=== PATIENT | male | born 1940 | race Caucasian/White ===

== ENCOUNTER 2019-11-12 12:29 | Inpatient (IN) | payer MEDICARE, OTHER ==
[~2019-11-12] VITALS: Ht 180.3 cm; Wt 118.8 kg
[2019-11-12 13:14] LABS: BASO # 0.2 x10^3/uL (0.0-0.2); BASO % 1 % (0-3); EOS % 0 % (0-3); HEMATOCRIT 40.4 % (39.0-53.0); HEMOGLOBIN 13.6 g/dL (13.0-17.5); LYMPH # 0.8 x10^3/uL (1.0-4.8); LYMPH % 4 % (24-48); MEAN CORPUSCULAR HEMOGLOBIN 29 pg (25-35); MEAN CORPUSCULAR HGB CONC 34 g/dL (31-37); MEAN CORPUSCULAR VOLUME 87 fL (79-100); MONO # 1.9 x10^3/uL (0.0-1.1); MONO % 9 % (0-9); NEUT % 87 % (31-73); PLATELET COUNT 243 x10^3/uL (140-400); RED BLOOD COUNT 4.62 x10^6/uL (4.30-5.70); RED CELL DISTRIBUTION WIDTH 14.2 % (11.5-14.5); WHITE BLOOD COUNT 21.9 x10^3/uL (4.0-11.0)
[2019-11-12 13:20] LABS: CALCIUM 8.6 mg/dL (8.5-10.1); CREATININE 1.8 mg/dL (0.7-1.3); GFR 36.5
[2019-11-12 13:32] LABS: ALBUMIN/GLOBULIN RATIO 0.8 (1.0-1.7); TOTAL BILIRUBIN 1.9 mg/dL (0.2-1.0); TOTAL PROTEIN 6.7 g/dL (6.4-8.2)
--- NOTE | 2019-11-12 13:43 | RAD ---
Exam performed: One view chest. Indication: Reason: cough / Spl. Instructions: / History: Date of Service: 11/12/2019 1:05 PM Comparison: None available. Single AP upright portable view chest findings: Cardiomediastinal silhouette is within limits of normal. No acute infiltrates, effusion or pneumothorax is detected. The bony structures are normal. Impression: No acute cardiopulmonary process is detected. Electronically signed by: Vivi Plaza MD (11/12/2019 1:40 PM) [facility]PITALTommie
--- NOTE | 2019-11-12 13:51 | EKG ---
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
[2019-11-12 14:02] LABS: % BANDS 1 % (0-9); % LYMPHS 4 % (24-48); % MONOS 10 % (0-10); % SEGS 85 % (35-66); ANISOCYTOSIS SLIGHT; PLT ESTIMATE ADEQUATE (ADEQUATE)
[2019-11-12 14:27] LABS: COLOR,URINE AMBER
[2019-11-12 14:28] LABS: BACTERIA,URINE MANY /HPF (0-FEW); BILIRUBIN,URINE NEG (NEG); CLARITY,URINE TURBID; GLUCOSE,URINE NEG (NEG); NITRITE,URINE POS (NEG); SQUAMOUS EPITHELIAL CELL,UR OCC /LPF; WBC,URINE TNTC /HPF (0-4)
[2019-11-12] MEDS ORDERED: IV NORMAL SALINE 50ML 50 ML ONE (14:56)
[2019-11-12] MEDS ORDERED: cefTRIAXone SODIUM 1 GM VIAL ONE (14:56)
[2019-11-12] MEDS ORDERED: IV NORMAL SALINE 1,000ML 1,000 ML IV ONE (15:00)
--- NOTE | 2019-11-12 15:09 | PHYS DOC ---
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 He went to his primary doctor who thought that he may have had some heat related illness. He was not concerned about COVID. Patient states he is chronically short of breath and there is been nothing worse lately. He has been coughing. His primary issue is that he is profoundly weak and has not had any energy recently. He denies any nausea or vomiting. He does not think he has had any fever at home. [] Review of Systems: Review of Systems: Constitutional: Per HPI Eyes: Denies change in visual acuity HENT: Denies nasal congestion or sore throat Respiratory: Reports chronic shortness of breath and cough Cardiovascular: Denies chest pain or edema GI: Denies abdominal pain, nausea, vomiting, bloody stools or diarrhea : Denies dysuria Musculoskeletal: Denies back pain or joint pain Integument: Denies rash Neurologic: Denies headache, focal weakness or sensory changes Endocrine: Denies polyuria or polydipsia Lymphatic: Denies swollen glands Psychiatric: Denies depression or anxiety Heart Score: HEART Score for Chest Pain: HEART Score for Chest Pain Response (Comments) Value Risk Factors No Risk Factors 0 Total 0 Risk Factors: Risk Factors: DM, Current or recent (<one month) smoker, HTN, HLP, family history of CAD, obesity. Risk Scores: Score 0 - 3: 2.5% MACE over next 6 weeks - Discharge Home Score 4 - 6: 20.3% MACE over next 6 weeks - Admit for Clinical Observation Score 7 - 10: 72.7% MACE over next 6 weeks - Early Invasive Strategies Allergies: Allergies: Allergies Coded Allergies Type Severity Reaction Last Updated Verified No Known Drug Allergies 11/12/19 No Physical Exam: PE: Constitutional: Well developed, well nourished, no distress but does appear acutely ill. [] HENT: Normocephalic, atraumatic, bilateral external ears normal, oropharynx moist, no oral exudates, nose normal. [] Eyes: PERRLA, EOMI, conjunctiva normal, no discharge. [] Neck: Normal range of motion, no tenderness, supple, no stridor. [] Cardiovascular:Heart rate regular rhythm, no murmur [] Lungs & Thorax: Bilateral breath sounds clear to auscultation [] Abdomen: Morbidly obese, bowel sounds normal, soft, no tenderness, no masses, no pulsatile masses. [] Skin: Warm, dry, no erythema, no rash. [] Back: No tenderness, no CVA tenderness. [] Extremities: No tenderness, no cyanosis, no clubbing, ROM intact, no edema. [] Neurologic: Alert and oriented X 3, normal motor function, normal sensory function, no focal deficits noted. [] Psychologic: Affect normal, judgement normal, mood normal. [] Current Patient Data: Labs: Laboratory Tests Test 11/12/19 12:52 11/12/19 14:03 White Blood Count 21.9 x10^3/uL (4.0-11.0) H Red Blood Count 4.62 x10^6/uL (4.30-5.70) Hemoglobin 13.6 g/dL (13.0-17.5) Hematocrit 40.4 % (39.0-53.0) Mean Corpuscular Volume 87 fL (79-100) Mean Corpuscular Hemoglobin 29 pg (25-35) Mean Corpuscular Hemoglobin Concent 34 g/dL (31-37) Red Cell Distribution Width 14.2 % (11.5-14.5) Platelet Count 243 x10^3/uL (140-400) Neutrophils (%) (Auto) 87 % (31-73) H Lymphocytes (%) (Auto) 4 % (24-48) L Monocytes (%) (Auto) 9 % (0-9) Eosinophils (%) (Auto) 0 % (0-3) Basophils (%) (Auto) 1 % (0-3) Neutrophils # (Auto) 19.0 x10^3uL (1.8-7.7) H Lymphocytes # (Auto) 0.8 x10^3/uL (1.0-4.8) L Monocytes # (Auto) 1.9 x10^3/uL (0.0-1.1) H Eosinophils # (Auto) 0.0 x10^3/uL (0.0-0.7) Basophils # (Auto) 0.2 x10^3/uL (0.0-0.2) Segmented Neutrophils % 85 % (35-66) H Band Neutrophils % 1 % (0-9) Lymphocytes % 4 % (24-48) L Monocytes % 10 % (0-10) Platelet Estimate Adequate (ADEQUATE) Anisocytosis Slight Sodium Level 133 mmol/L (136-145) L Potassium Level 3.0 mmol/L (3.5-5.1) L Chloride Level 92 mmol/L (98-107) L Carbon Dioxide Level 32 mmol/L (21-32) Anion Gap 9 (6-14) Blood Urea Nitrogen 30 mg/dL (8-26) H Creatinine 1.8 mg/dL (0.7-1.3) H Estimated GFR (Cockcroft-Gault) 36.5 BUN/Creatinine Ratio 17 (6-20) Glucose Level 115 mg/dL (70-99) H Calcium Level 8.6 mg/dL (8.5-10.1) Total Bilirubin 1.9 mg/dL (0.2-1.0) H Aspartate Amino Transferase (AST) 22 U/L (15-37) Alanine Aminotransferase (ALT) 16 U/L (16-63) Alkaline Phosphatase 83 U/L (46-116) Troponin I Quantitative < 0.017 ng/mL (0-0.055) AV-Kxv-M-Type Natriuretic Peptide 1486 pg/mL (0-449) H Total Protein 6.7 g/dL (6.4-8.2) Albumin 3.0 g/dL (3.4-5.0) L Albumin/Globulin Ratio 0.8 (1.0-1.7) L Urine Collection Type Unknown Urine Color [place] Urine Clarity Turbid Urine pH 5.5 Urine Specific [place] 1.025 Urine Protein 100 mg/dl (NEG-TRACE) Urine Glucose (UA) Neg mg/dL (NEG) Urine Ketones (Stick) Neg mg/dL (NEG) Urine Blood Large (NEG) Urine Nitrite Pos (NEG) Urine Bilirubin Neg (NEG) Urine Urobilinogen Dipstick 1.0 mg/dL (0.2 mg/dL) Urine Leukocyte Esterase Mod (NEG) Urine RBC 6-10 /HPF (0-2) Urine WBC Tntc /HPF (0-4) Urine Squamous Epithelial Cells Occ /LPF Urine Bacteria Many /HPF (0-FEW) Vital Signs: Vital Signs Date Time Temp Pulse Resp B/P (MAP) Pulse Ox O2 Delivery O2 Flow Rate FiO2 11/12/19 14:32 97 16 167/87 (113) 96 Room Air 11/12/19 12:39 98.2 EKG: EKG: [] Radiology/Procedures: Radiology/Procedures: [] Impressions: REASON: cough PROCEDURE: CHEST AP ONLY Exam performed: One view chest. Indication: Reason: cough / Spl. Instructions: / History: Date of Service: 11/12/2019 1:05 PM Comparison: None available. Single AP upright portable view chest findings: Cardiomediastinal silhouette is within limits of normal. No acute infiltrates, effusion or pneumothorax is detected. The bony structures are normal. Impression: No acute cardiopulmonary process is detected. Course & Med Decision Making: Course & Med Decision Making Pertinent Labs and Imaging studies reviewed. (See chart for details) [ED course: Evaluation reveals a weak 79-year-old male who appears to have a complicated urinary tract infection. He was given IV fluids and Rocephin during his stay in the department. We will go ahead and keep him overnight for IV antibiotics and IV hydration. I spoke with Dr. Dempsey who agrees to accept the patient for admission.] [employer] Disclaimer: [employer] Disclaimer: This electronic medical record was generated, in whole or in part, using a voice recognition dictation system. Departure Departure: Impression: Primary Impression: Urinary tract infection Qualified Codes: N10 - Acute pyelonephritis Disposition: HOME/RESIDENCE PRIOR TO ADM Condition: STABLE Referrals: DENNIS JEREZ MD (PCP) Justification of Admission: Justification of Admission: Justification of Admission Dx: Yes Comments: Urinary tract infection CAR LEONARDO DO Nov 12, 2019 15:09
[2019-11-12] MEDS ORDERED: IV NORMAL SALINE 1,000ML 1,000 ML IV SCH (15:13)
[2019-11-12] MEDS ORDERED: ONDANSETRON PF 4 MG/2 ML VIAL. IVP PRN ×2 (15:15→16:30)
[2019-11-12 16:21] VITALS: BP 106/63
[2019-11-12] MEDS ORDERED: ACETAMINOPHEN 325 MG TABLET PO ONE (16:28)
[2019-11-12] MEDS ORDERED: diphenhydrAMINE 50 MG/ML VIAL IVP PRN (16:30)
[2019-11-12] MEDS ORDERED: diphenhydrAMINE HCL 25 MG CAPSULE PO PRN (16:30)
[2019-11-12] MEDS ORDERED: METOCLOPRAMIDE HCL 10 MG/2 ML VIAL. IVP PRN (16:30)
[2019-11-12] MEDS ORDERED: PROCHLORPERAZINE 10 MG/2 ML VIAL. IVP PRN (16:30)
[2019-11-12] MEDS: IV NORMAL SALINE 1,000ML 1,000 ML IV SCH (16:31)
[2019-11-12] MEDS ORDERED: RIVA20TA2 PO (17:50)
[2019-11-12] MEDS ORDERED: CITA40TA5 PO (17:50)
[2019-11-12] MEDS ORDERED: METO5TAB4 PO (17:50)
[2019-11-12] MEDS ORDERED: CLOP75TA57 PO (17:50)
[2019-11-12] MEDS ORDERED: DILT300C23 PO (17:50)
[2019-11-12] MEDS ORDERED: METO50TA29 PO (17:50)
[2019-11-12] MEDS ORDERED: ATOR40TA59 PO (17:50)
[2019-11-12] MEDS ORDERED: ASPI-424 PO (17:50)
[2019-11-12] MEDS ORDERED: FURO40TA4 PO (17:50)
[2019-11-12] MEDS ORDERED: DOXY100C2 PO (17:50)
--- NOTE | 2019-11-12 18:32 | NUR ---
PT is able to partially verbalize understanding of poc. PT is forgetful at times. PT has had increased weakness and SOB over the last few weeks with some urinary incontinence. PT said he felt dehydrated. He had a fall while walking a property and has abrasions on his knees and ecchymosis on Left shoulder. PT reports living home alone since his . He has not had much of a taste for food the last few weeks. PT instructed to use call light when getting up. PT HR increases with exertion and pt wears a bipap at night. Sang KWAN
--- NOTE | 2019-11-12 19:11 | HP ---
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 He went to his primary doctor who thought that he may have had some heat related illness. He was not concerned about the COVID. The patient states he is chronically short of breath and that he has been worsening, has been coughing. His primary issue is that he is profoundly weak and has not had any energy recently. He denies any nausea or vomiting. He does think that he has had fever at home, also he does not lost taste for food for the last 2 weeks. He was extensively investigated in the Emergency Room and was found to have marked leukocytosis, the white cell count 21,900. He is also hyponatremic and hypokalemic with impaired kidney function; although, we do not have anything to compare with. He was admitted with complicated urinary tract infection as well as acute on chronic or chronic kidney disease, hyponatremia, hypokalemia and symptoms of enlarged prostate. PAST MEDICAL HISTORY: Significant for coronary artery disease, status post stent deployment x 2. He is known to have COPD and atrial fibrillation. He has morbid obesity, obstructive sleep apnea, on BiPAP machine at nighttime. He also has hyperlipidemia. PAST SURGICAL HISTORY: Significant for bilateral cataract extraction, umbilical hernia repair. He also had tonsillectomy and uvulopalatoplasty for obstructive sleep apnea. ALLERGIES: He has no known drug allergies. MEDICATIONS: He is currently on following medications: He is on rivaroxaban 20 mg once a day, Plavix 75 mg once a day, atorvastatin calcium 40 mg at bedtime, metoprolol succinate 50 mg once a day, diltiazem 300 mg extended release once a day, aspirin 81 mg once a day, citalopram hydrobromide 40 mg twice a day, furosemide 40 mg once a day and metolazone 5 mg 2 times per week. FAMILY HISTORY: Noncontributory. SOCIAL HISTORY: He has stepchildren. He continued to smoke and apparently has started smoking when he was 13 years old. REVIEW OF SYSTEMS: As per history of present illness. PHYSICAL EXAMINATION: GENERAL: On arrival to the Emergency Room, he looked well and was clearly in no apparent respiratory distress. No pallor, jaundice, cyanosis or thyromegaly. No jugular venous distention. No lower limb edema. VITAL SIGNS: His heart rate was 93, blood pressure was 105/77, temperature was 98.2, respiratory rate was 16, and oxygen saturation was 95% on room air. HEAD, EYES, EARS, NOSE AND THROAT: Showed normocephalic, atraumatic. NECK: Supple. CARDIAC: Regular first heart sound. No gallop, rub or murmur. CHEST: Shows central trachea, equal bilateral expansion air entry. Vesicular breath sounds. No crepitation or rhonchi. ABDOMEN: Distended, soft, nontender. NEUROLOGIC: He was awake, alert, and somewhat hard of hearing. All other cranial nerves are intact. EXTREMITIES: He moves extremities without difficulty. He ambulates with a cane. LABORATORY DATA: Showed a white cell count 21,900, hemoglobin 13, hematocrit 40, MCV 87 and platelet count 243,000. His chemistry showed a serum sodium 133, potassium 3, chloride 92, bicarbonate 32, anion gap of 9, BUN 30, creatinine 1.8, estimated GFR was 36 mL per minute. His glucose was 115, calcium was 8.6. Total bilirubin is 1.9; however, his AST, ALT, alkaline phosphatase were normal. Troponin was less than 0.017. Total beta natriuretic peptide was 1486. Total protein was 6.7, albumin was 3. His chest x-ray showed that the cardiomediastinal silhouette is within normal limits. No acute infiltrate, effusion or pneumothorax detected. The bony structures are normal. ASSESSMENT AND PLAN: In summary, this is an 79-year-old male patient who was admitted with generalized weakness, fever, loss of taste, shortness of breath. His evaluation in the Emergency Room revealed that he has marked leukocytosis, hyponatremia, hypokalemia and impaired kidney function, difficult to know whether this is acute on chronic or chronic kidney disease. He definitely has symptoms suggestive of benign prostatic hypertrophy. Other medical problems include hypertension, hyperlipidemia, atrial fibrillation, coronary artery disease, status post stent deployment, morbid obesity, obstructive sleep apnea and chronic obstructive pulmonary disease. He was swabbed for COVID-19. He also received ceftriaxone 1 g IV once a day. We will correct his hyponatremia and hypokalemia. I will probably hold the diuretics for now and monitor his lab work on a daily basis and adjust antibiotic according to the results of the culture and sensitivity. BAMBI AVERY MD DR: Naya JOB#: [id number] / [id number]
[2019-11-12] MEDS: ATORVASTATIN CALCIUM 20 MG TABLET PO SCH (21:00)
[2019-11-12 23:30] VITALS: BP 95/63
[2019-11-13] MEDS: ACETAMINOPHEN 325 MG TABLET PO PRN (01:57)
[2019-11-13 05:48] LABS: BASO # 0.1 x10^3/uL (0.0-0.2); BASO % 1 % (0-3); EOS # 0.1 x10^3/uL (0.0-0.7); EOS % 0 % (0-3); HEMOGLOBIN 12.8 g/dL (13.0-17.5); LYMPH # 0.6 x10^3/uL (1.0-4.8); LYMPH % 4 % (24-48); MEAN CORPUSCULAR HEMOGLOBIN 30 pg (25-35); MEAN CORPUSCULAR HGB CONC 34 g/dL (31-37); MEAN CORPUSCULAR VOLUME 88 fL (79-100); MONO # 1.4 x10^3/uL (0.0-1.1); MONO % 9 % (0-9); NEUT # 14.3 x10^3uL (1.8-7.7); NEUT % 87 % (31-73); PLATELET COUNT 214 x10^3/uL (140-400); RED BLOOD COUNT 4.33 x10^6/uL (4.30-5.70); RED CELL DISTRIBUTION WIDTH 14.3 % (11.5-14.5); WHITE BLOOD COUNT 16.4 x10^3/uL (4.0-11.0)
[2019-11-13 06:04] LABS: ALBUMIN 2.4 g/dL (3.4-5.0); ALBUMIN/GLOBULIN RATIO 0.6 (1.0-1.7); CALCIUM 8.6 mg/dL (8.5-10.1); CREATININE 1.5 mg/dL (0.7-1.3); TOTAL BILIRUBIN 1.3 mg/dL (0.2-1.0); TOTAL PROTEIN 6.5 g/dL (6.4-8.2)
[2019-11-13 06:09] LABS: POTASSIUM 2.5 mmol/L (3.5-5.1)
[2019-11-13 06:16] LABS: % LYMPHS 3 % (24-48); % MONOS 5 % (0-10); % SEGS 92 % (35-66)
[2019-11-13 06:17] LABS: PLT ESTIMATE ADEQUATE (ADEQUATE)
[2019-11-13] MEDS: IV NORMAL SALINE 1,000ML 1,000 ML IV SCH ×2 (06:39→19:08)
[2019-11-13] MEDS: POTASSIUM CHLORIDE 20 MEQ TABLET.ER. PO SCH ×6 (06:39→17:39)
[2019-11-13 07:00] VITALS: BP 98/65
[2019-11-13] MEDS: ASPIRIN ENTERIC COATED 81 MG TABLET.DR. PO SCH (08:49)
[2019-11-13] MEDS: CLOPIDOGREL BISULFATE 75 MG TABLET PO SCH (08:51)
[2019-11-13] MEDS: METOPROLOL SUCC 24HR ER 50 MG TAB.ER.24H. PO SCH (08:52)
[2019-11-13] MEDS: RIVAROXABAN 10 MG TABLET. PO SCH (08:52)
[2019-11-13] MEDS: LACTOBACILLUS RHAMNOSUS GG 1 CAPSULE. PO SCH ×2 (08:52→21:10)
[2019-11-13 11:00] VITALS: BP 109/67
[2019-11-13 11:43] LABS: CALCIUM 8.7 mg/dL (8.5-10.1); CREATININE 1.5 mg/dL (0.7-1.3); POTASSIUM 3.1 mmol/L (3.5-5.1)
[2019-11-13 15:00] VITALS: BP 101/94
--- NOTE | 2019-11-13 17:24 | PN ---
DATE: SUBJECTIVE: The patient is resting flat, comfortably in bed, in no apparent distress. On questioning him, he denied any complaint, stated that he has an uneventful night. He is feeling generally much improved. His potassium was low this morning and was down to 2.5. We did give him 40 mEq x 3 and by the time I saw him, it was 3.1. His urine culture has grown more than 100,000 colony forming units per mL of gram-negative rods. The identification and sensitivity is still pending at the time of this dictation. [place] [address] [place] [address]. PHYSICAL EXAMINATION: GENERAL: When I examined him this afternoon, he was resting flat, comfortably in bed, in no apparent respiratory distress. No pallor, jaundice, cyanosis or thyromegaly. No jugular venous distention. No limb edema. VITAL SIGNS: His heart rate was 82, blood pressure was 98/65, temperature was 100, respiratory rate was 18 and his oxygen saturation was 95% on 2 liters of oxygen by nasal cannula. HEAD, EYES, EARS, NOSE AND THROAT: Showed normocephalic, atraumatic. NECK: Supple. HEART: Showed normal first and second heart sounds. No gallop or murmur. CHEST: Clear to auscultation. No crepitation or rhonchi. ABDOMEN: Distended, soft, nontender. NEUROLOGIC: He was awake, alert, responding appropriately. All his cranial nerves are intact. He moves extremities without difficulty. His intake over the last 24 hours was incompletely recorded. LABORATORY DATA: As of this morning, his white cell count was 16,400, hemoglobin 12.8, hematocrit 38, MCV 88 and platelet count of 214,000. His chemistry showed a serum sodium 137, potassium 3.1, chloride 97, bicarbonate 33, anion gap of 7, BUN 25, creatinine 1.5, estimated GFR was 45 mL per minute. His glucose was 84, calcium was 8.7. ASSESSMENT: 1. Complicated urinary tract infection with growth of more than 100,000 colony forming units per mL of gram-negative rods. The identification and sensitivity is still pending. The patient is already on Rocephin and seemed to be at least clinically responding. 2. Generalized weakness, fever, loss of taste, shortness of breath for which he was swabbed for COVID-19; the result is still pending. 3. Gpgyk-ot-lcvuoba kidney injury. 4. Hypertension. 5. Hyperlipidemia. 6. Atrial fibrillation. 7. Coronary artery disease, status post stent deployment. 8. Morbid obesity, obstructive sleep apnea. 9. Chronic obstructive pulmonary disease. PLAN: Obviously to continue with IV ceftriaxone. His sodium has improved up to 137. Potassium is still low at 3.1, for which I will order some more potassium. Repeat all his lab work and hopefully by tomorrow, we have the culture and sensitivity as well as the test result for COVID-19. BAMBI AVERY MD DR: MARTINA/tiffany JOB#: [id number] / [id number]
--- NOTE | 2019-11-13 17:45 | NUR ---
END OF SHIFT NOTE: PT IS PLEASANT. PT HAD A FEVER OF 100.1 TODAY AT 11 AM. PT WAS GIVEN TYLENOL. PT'S RECHECK AT 3 PM WAS 98.1. PT DOES COMPLAIN OF PAIN TO THE RIGHT SHOULDER THAT HE THINKS IS FROM LAYING IN THE BED TODAY. PT HAS BEEN CONTINENT TODAY AND HAD A LARGE BOWEL MOVEMENT TODAY AND COMPLAINS OF CONSTIPATION. PT WAS TACHYCARDIC THIS AM AT THE START OF MY SHIFT AND HE WAS GIVEN HIS MORNING MEDICATIONS OF CARDIZEM AND METOPROLOL AND HR REMAINS IN THE 80 AND CONTROLLED. PT IS EATING DINNER AT BEDSIDE. WHEN DR. AVERY WAS AT BEDSIDE PT'S POTASSIUM WAS 3.[address] AVERY ORDERED X 3 DOSES OF 40 MEQ WITH A RECHECK AT 8 PM TODAY. WILL FOLLOW THE PLAN OF CARE AND CONTINUE TO MONITOR AND ASSESS NEEDED.
[2019-11-13 18:27] VITALS: BP 103/58
[2019-11-13 19:50] VITALS: BP 98/66
[2019-11-13 19:55] LABS: CALCIUM 8.7 mg/dL (8.5-10.1); CREATININE 1.5 mg/dL (0.7-1.3); POTASSIUM 3.9 mmol/L (3.5-5.1)
[2019-11-13] MEDS: DOCUSATE SODIUM 100 MG CAPSULE PO SCH (21:00)
[2019-11-13] MEDS: ATORVASTATIN CALCIUM 20 MG TABLET PO SCH (21:10)
[2019-11-13 22:55] VITALS: BP 121/71
[2019-11-14 03:25] VITALS: BP 102/66
[2019-11-14 06:29] VITALS: BP 103/60
[2019-11-14 06:49] LABS: HEMATOCRIT 35.5 % (39.0-53.0); HEMOGLOBIN 11.8 g/dL (13.0-17.5); RED BLOOD COUNT 3.98 x10^6/uL (4.30-5.70); RED CELL DISTRIBUTION WIDTH 14.8 % (11.5-14.5); WHITE BLOOD COUNT 12.7 x10^3/uL (4.0-11.0)
[2019-11-14 07:04] LABS: ALBUMIN 2.2 g/dL (3.4-5.0); ALBUMIN/GLOBULIN RATIO 0.6 (1.0-1.7); CALCIUM 8.5 mg/dL (8.5-10.1); CREATININE 1.3 mg/dL (0.7-1.3); GFR 53.1; POTASSIUM 4.1 mmol/L (3.5-5.1); TOTAL BILIRUBIN 0.7 mg/dL (0.2-1.0); TOTAL PROTEIN 6.2 g/dL (6.4-8.2)
[2019-11-14] MEDS: DOCUSATE SODIUM 100 MG CAPSULE PO SCH ×2 (09:23→21:00)
[2019-11-14] MEDS: CLOPIDOGREL BISULFATE 75 MG TABLET PO SCH (09:24)
[2019-11-14] MEDS: RIVAROXABAN 10 MG TABLET. PO SCH (09:24)
[2019-11-14] MEDS: METOPROLOL SUCC 24HR ER 50 MG TAB.ER.24H. PO SCH (09:24)
[2019-11-14] MEDS: LACTOBACILLUS RHAMNOSUS GG 1 CAPSULE. PO SCH ×2 (09:24→20:52)
[2019-11-14] MEDS: ASPIRIN ENTERIC COATED 81 MG TABLET.DR. PO SCH (09:24)
[2019-11-14] MEDS: IV NORMAL SALINE 1,000ML 1,000 ML IV SCH (09:25)
[2019-11-14 12:55] VITALS: BP 117/59
--- NOTE | 2019-11-14 14:40 | PN ---
DATE: SUBJECTIVE: The patient is resting, slightly propped up in bed, in no apparent distress, sleepy, but arousable. On questioning him, he stated that he is feeling much, much better. His COVID-19 test was negative. His urine culture has grown more than 100,000 colony forming units per mL of gram-negative rods identified as Escherichia coli. Unfortunately, it is resistant to all oral antibiotic; however, it is sensitive to ceftriaxone. PHYSICAL EXAMINATION: GENERAL: When I examined him this afternoon, he looked somewhat pale, but no jaundice, cyanosis or thyromegaly. No jugular venous distention. No limb edema. VITAL SIGNS: His heart rate was 68, blood pressure was 117/59, temperature 96.7, respiratory rate was 18 and oxygen saturation was 96%. HEAD, EYES, EARS, NOSE, AND THROAT: Showed normocephalic, atraumatic. NECK: Supple. HEART: Showed normal first and second heart sounds. No gallop or murmur. CHEST: Clear to auscultation. No crepitation or rhonchi. ABDOMEN: Distended, soft, nontender. NEUROLOGIC: He was sleepy, but arousable. All cranial nerves are intact. He moves extremities without difficulty, ambulates without assistance or assistive devices, although he normally uses a cane at home. His intake over the last 24 hours was 1500, output was 550. LABORATORY DATA: As of this morning, his white cell count is down to 12,700, hemoglobin 11.8, hematocrit 35.5, MCV 89 and platelet count 231,000. His chemistry showed his serum sodium was 136, potassium was 4.1, chloride 101, bicarbonate 30, anion gap of 5, BUN 20, creatinine 1.3, estimated GFR was 53 mL per minute. His glucose was 98, calcium was 8.5. Total bilirubin, AST, ALT, alkaline phosphatase were normal. Total protein was 6.2, albumin 2.2. His COVID-19 by PCR was negative and his blood cultures are negative. His urine culture as stated was showing growth of more than 100,000 colony forming ____ gram-negative rods identified as Escherichia coli sensitive to ceftriaxone. Unfortunately, it is resistant to oral antibiotics including amoxicillin, Augmentin, and tetracycline. PLAN: My plan is to continue with IV antibiotics for today and tomorrow we will discuss with the social work therapist to see whether he can come and finish treatment as an outpatient or discharge him home with home health to continue IV antibiotic at home. BAMBI AVERY MD DR: MARTINA/tiffany JOB#: [id number] / [id number]
--- NOTE | 2019-11-14 17:30 | NUR ---
PT ACCIDENTALLY PULLED OUT IV. PT HAD BLOOD TO R SHOULDER AND PILLOW AND STATES HE DOESNT KNOW HOW IT GOT PULLED OUT. PT HAS ANOTHER IV PLACED 22 G IN HIS LEFT AC. WILL CTM AND ASSESS NEEDED.
[2019-11-14 18:11] VITALS: BP 99/62
[2019-11-14] MEDS: ACETAMINOPHEN 325 MG TABLET PO PRN (18:40)
[2019-11-14 20:15] VITALS: BP 99/67
[2019-11-14] MEDS: ATORVASTATIN CALCIUM 20 MG TABLET PO SCH (20:52)
[2019-11-15 02:00] VITALS: BP 98/63
[2019-11-15 05:45] VITALS: BP 104/65
[2019-11-15 07:14] LABS: CALCIUM 8.5 mg/dL (8.5-10.1); CREATININE 1.1 mg/dL (0.7-1.3); GFR 64.4; POTASSIUM 3.8 mmol/L (3.5-5.1)
[2019-11-15 07:28] VITALS: BP 101/56
[2019-11-15] MEDS: LACTOBACILLUS RHAMNOSUS GG 1 CAPSULE. PO SCH (08:05)
[2019-11-15] MEDS: CLOPIDOGREL BISULFATE 75 MG TABLET PO SCH (08:05)
[2019-11-15] MEDS: RIVAROXABAN 10 MG TABLET. PO SCH (08:05)
[2019-11-15] MEDS: DOCUSATE SODIUM 100 MG CAPSULE PO SCH (08:05)
[2019-11-15] MEDS: ASPIRIN ENTERIC COATED 81 MG TABLET.DR. PO SCH (08:05)
[2019-11-15] MEDS: IV NORMAL SALINE 1,000ML 1,000 ML IV SCH ×2 (08:09→10:15)
[2019-11-15] MEDS: METOPROLOL SUCC 24HR ER 50 MG TAB.ER.24H. PO SCH (08:20)
--- NOTE | 2019-11-15 11:00 | NUR ---
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
[2019-11-15 11:26] VITALS: BP 99/52
--- NOTE | 2019-11-15 11:52 | NUR ---
HÉCTOR RN IS AT BEDSIDE PLACING MIDLINE FOR PATIENT TO DO OUTPATIENT INFUSIONS PER DR. AVERY'S ORDERS. WILL CTM.
--- NOTE | 2019-11-15 12:12 | NUR ---
Procedure: Following complete explanation of the MIDLINE procedure including the indications, risks, and potential complications, informed consent was obtained. The possibility for infection was discussed along with signs, symptoms, and prevention. All the questions were answered. IV Device Protocol was used. Written and verbal patient education was provided. Hand hygiene performed. Standardized central line checklist was utilized. The patient was placed in the supine position, the arm was prepped with chlorhexidine and patient draped with maximum sterile barrier. 3 mL 1% lidocaine was infiltrated into the skin to provide local anesthesia. A thorough assessment of Right upper extremity completed. Using real-time ultrasound guidance and standardized micro puncture set, the brachial vein was punctured and a peel away sheath was placed using the modified Seldinger technique. Cephalic vein was attempted first, unsuccessful Wire would not advance. Bascilic vein was small and deep. Used brachial due to size and position. The catheter was secured using a securement device and an antimicrobial patch was applied directly on the insertion site followed by a transparent dressing. All ports withdraw blood and flush without resistance. Patient tolerated the procedure without apparent complication. Single Lumen Power Midline placement successful and uncomplicated. Complications:None I do anticipate some bleeding due to pt being on plavix, asa, and blood thinner. If does bleed change dressing and apply pressure dressing if needed over dressing. Héctor Marquez RN COMMUNITY ARTIST MSN CMSRN [facility]OTTY MAILING SPECIALIST-C Addendum: 11/15/19 at 1231 by HÉCTOR MARQUEZ RN 14 cm inside 0 out
[2019-11-15] MEDS ORDERED: CEFT1FRO2 IV (13:43)
--- NOTE | 2019-11-15 14:34 | NUR ---
PT'S MIDLINE CAPPED WITH ORANGE CAP AND DRESSING IS PLACED OVER TO PROTECT THE MIDLINE. PT SIGNED DISCHARGE PAPERWORK AND WILL BE BACK TOMORROW AM FOR AN OUTPATIENT INFUSION OF ROCEPHIN. PT'S OLD IV'S REMOVED AND DRESSINGS PLACED AT THE SITE. PT AMBULATED DOWN THE CASAS AND GOT INTO SECURITY'S CAR FOR A RIDE TO HIS CAR.
--- NOTE | 2019-11-15 17:52 | PN ---
DATE: HOSPITAL COURSE: The patient is an 79-year-old male patient who was admitted with generalized weakness, fever, loss of taste, shortness of breath. He was swabbed for COVID-19 and luckily he was negative. He was also found to have urinary tract infection and he grew out more than 100,000 colony-forming units per mL of gram-negative rods identified as Escherichia coli sensitive to mostly parenteral antibiotics. He was treated with IV Rocephin. He has been afebrile for the last 72 hours. His white cell count came down from 22,000-12,000. He was extremely hypokalemic. His potassium was replenished and today, the potassium is 3.8. His BUN was 30, down to 16, and creatinine down from 1.8 to 1.1, and as he remained hemodynamically stable and afebrile, a decision was made to discharge him home to continue IV antibiotic as an outpatient. PHYSICAL EXAMINATION: GENERAL: When I saw him this afternoon, he was resting, slightly propped up in bed, in no apparent distress. He was awake, alert, responding appropriately. All cranial nerves are intact. He moves extremities without difficulty. He ambulates with a cane. VITAL SIGNS: His heart rate was 80, blood pressure was 99/50, temperature was 97.3, respiratory rate was 18 and oxygen saturation was 96% on 2 liters of oxygen. HEAD, EYES, EARS, NOSE AND THROAT: Showed normocephalic, atraumatic. NECK: Supple. HEART: Showed normal first and second heart sounds with no gallop or murmur. CHEST: Clear to auscultation. No crepitation or rhonchi. ABDOMEN: Distended, soft, nontender. No guarding or rigidity. No organomegaly. All hernial orifices intact. Bowel sounds normal. NEUROLOGIC: He was awake, alert, very hard of hearing. All his cranial nerves are intact. He moves extremities without difficulty. His intake was 1650, output was 400. LABORATORY DATA: Showed a serum sodium 140, potassium 3.8, chloride 104, bicarbonate 30, anion gap of 6, BUN 16, creatinine 1.1. Estimated GFR was 64 mL per minute. His glucose was 99, calcium was 8.5. His white cell count was 12,700, hemoglobin 12, hematocrit ____ 36, MCV 89, and platelet count 231,000. His COVID-19 by PCR was negative. DISCHARGE MEDICATIONS: He will be discharged home to continue on ceftriaxone 1 g IV daily for 6 more days. Continue with aspirin 81 mg once a day, atorvastatin 40 mg at bedtime, citalopram hydrobromide 40 mg twice a day, Plavix 75 mg once a day, diltiazem CD 300 mg once a day, furosemide 40 mg once a day, metolazone 5 mg twice per week, metoprolol succinate 50 mg daily and rivaroxaban for Xarelto 20 mg once a day. FINAL DISCHARGE DIAGNOSES: 1. Complicated urinary tract infection with a growth of more than 100,000 colony-forming units per mL of Escherichia coli sensitive to ceftriaxone. 2. Generalized weakness, fever, loss of taste, shortness of breath, for which he was swabbed for COVID-19, but turned out to be negative. 3. [id number]-[id number] kidney injury, resolved. 4. Hypertension. 5. Hyperlipidemia. 6. Atrial fibrillation. 7. Coronary artery disease, status post stent deployment. 8. Morbid obesity and obstructive sleep apnea. 9. Chronic obstructive pulmonary disease. BAMBI AVERY MD DR: MARTINA/tiffany JOB#: [id number] / [id number]
== END 2019-11-15 14:30 | disposition home or self-care (01) | DRG 871 ==
LOC: ER 12:29 → ICU 16:07
PROVIDERS: ADMIT Internal Medicine; ATTEND Internal Medicine
PROC: 05HB33Z Insertion of Infusion Device into Right Basilic Vein, Percutaneous Approach (ICD-10-PCS; principal; 2019-11-15)
PROC: B54MZZA Ultrasonography of Right Upper Extremity Veins, Guidance (ICD-10-PCS; 2019-11-15)
DX: A41.9 Sepsis, unspecified organism (principal); N17.0 Acute kidney failure with tubular necrosis; E87.1 Hypo-osmolality and hyponatremia; N10 Acute pyelonephritis; B96.20 Unspecified Escherichia coli [E. coli] as the cause of diseases classified elsewhere; E66.01 Morbid (severe) obesity due to excess calories; E78.5 Hyperlipidemia, unspecified; E87.6 Hypokalemia; F17.200 Nicotine dependence, unspecified, uncomplicated; G47.33 Obstructive sleep apnea (adult) (pediatric); I12.9 Hypertensive chronic kidney disease with stage 1 through stage 4 chronic kidney disease, or unspecified chronic kidney disease; I25.10 Atherosclerotic heart disease of native coronary artery without angina pectoris; I48.91 Unspecified atrial fibrillation; J44.9 Chronic obstructive pulmonary disease, unspecified; N18.9 Chronic kidney disease, unspecified; Z20.828 Contact with and (suspected) exposure to other viral communicable diseases; Z95.5 Presence of coronary angioplasty implant and graft; Z98.41 Cataract extraction status, right eye; Z98.42 Cataract extraction status, left eye; Z68.36 Body mass index [BMI] 36.0-36.9, adult; Z79.899 Other long term (current) drug therapy
CPT/HCPCS: 36415; 71045; 80048; 80053; 81001; 83880; 84484; 85007; 85025; 85027; 87040; 87086; 93005; 96365; G0103; J0696; 99285-25; J7030; U0003-CS

== ENCOUNTER 2019-11-30 11:13 | Emergency (ER) | payer MEDICARE, OTHER ==
[~2019-11-30] VITALS: Ht 180.3 cm; Wt 90.0 kg
[~2019-11-30 11:13] MED LIST: ASPI-424 PO; ATOR40TA59 PO; CEFT1FRO2 IV; CITA40TA5 PO; CLOP75TA57 PO; DILT300C23 PO; DOXY100C2 PO; FURO40TA4 PO; METO50TA29 PO; METO5TAB4 PO; RIVA20TA2 PO
[2019-11-30 11:37] VITALS: BP 114/49
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
--- NOTE | 2019-11-30 12:27 | RAD ---
CHEST PA LATERAL History: Reason: fall rib pain / Spl. Instructions: / History: Comparison: November 12, 2019 Findings: Linear bibasilar opacities. No consolidation or pleural effusion. Normal heart size. No pneumothorax. Impression: 1. Linear bibasilar opacities, likely atelectasis. Electronically signed by: Abhinav Ralph DO (11/30/2019 12:24 PM) [facility]
== END 2019-11-30 12:53 | disposition home or self-care (01) ==
LOC: ER 11:13
DX: S23.41XA Sprain of ribs, initial encounter (principal); I48.91 Unspecified atrial fibrillation; J44.9 Chronic obstructive pulmonary disease, unspecified; W18.39XA Other fall on same level, initial encounter; Y93.89 Activity, other specified; Y92.89 Other specified places as the place of occurrence of the external cause; Y99.8 Other external cause status
CPT/HCPCS: 71046; 99283

== ENCOUNTER 2019-12-10 09:30 | Inpatient (IN) | payer MEDICARE, OTHER ==
[~2019-12-10] VITALS: Ht 180.3 cm; Wt 115.2 kg
--- NOTE | 2019-12-10 09:43 | PHYS DOC ---
Past History Past Medical History: A-Fib, CAD, COPD Past Surgical History: Angioplasty, Tonsillectomy Alcohol Use: Rarely General Adult HPI: HPI: 79-year-old male past medical history significant for CAD with 1 stent, hypertension, hyperlipidemia, atrial fibrillation on Xarelto, copd and obesity, presents to the ED with complaints of "pains in my chest, not severe pains," that started last night around 10 PM. Patient states the pain is left-sided described as dull, flaccid, aching pain, nonradiating. No relief with nitroglycerin sublingual once. States history of similar symptoms that "digoxin took it away." Is not taking digoxin currently. Also reports a productive cough with " sticky phlegm." States he was admitted to the hospital within the past month for a UTI that required a PICC line and outpatient antibiotics. States he has never had a heart attack before but had a cardiac cath and CAD was found-last cath and nuclear stress test was over 7 years ago. Review of systems: Denies associated fever, chills, neck stiffness, headache, sore throat, nausea, vomiting, diarrhea, diaphoresis, abdominal pain, back pain, leg swelling, hemoptysis, headedness, dizziness, syncope. Review of Systems: Review of Systems: Constitutional: Denies fever or chills Eyes: Denies change in visual acuity HENT: Denies nasal congestion or sore throat Respiratory: Denies cough or shortness of breath Cardiovascular: Denies chest pain or edema GI: Denies abdominal pain, nausea, vomiting, bloody stools or diarrhea : Denies dysuria Musculoskeletal: Denies back pain or joint pain Integument: Denies rash Neurologic: Denies headache, focal weakness or sensory changes Endocrine: Denies polyuria or polydipsia Lymphatic: Denies swollen glands Psychiatric: Denies depression or anxiety Heart Score: HEART Score for Chest Pain: HEART Score for Chest Pain Response (Comments) Value History Moderately Suspicious 1 ECG Normal 0 Age > 65 2 Risk Factors >3 Risk Factors or Hx CAD 2 Troponin < Normal Limit 0 Total 5 Risk Factors: Risk Factors: DM, Current or recent (<one month) smoker, HTN, HLP, family history of CAD, obesity. Risk Scores: Score 0 - 3: 2.5% MACE over next 6 weeks - Discharge Home Score 4 - 6: 20.3% MACE over next 6 weeks - Admit for Clinical Observation Score 7 - 10: 72.7% MACE over next 6 weeks - Early Invasive Strategies Allergies: Allergies: Allergies Coded Allergies Type Severity Reaction Last Updated Verified No Known Drug Allergies 11/12/19 No Physical Exam: PE: Constitutional: Well developed, well nourished, no acute distress, non-toxic appearance. [] HENT: Normocephalic, atraumatic, bilateral external ears normal, oropharynx moist, no oral exudates, nose normal. [] Eyes: PERRLA, EOMI, conjunctiva normal, no discharge. [] Neck: Normal range of motion, no tenderness, supple, no stridor. [] Cardiovascular:Heart rate regular rhythm, no murmur [] Lungs & Thorax: Bilateral breath sounds clear to auscultation [] Abdomen: Bowel sounds normal, soft, no tenderness, no masses, no pulsatile masses. [] Skin: Warm, dry, no erythema, no rash. [] Back: No tenderness, no CVA tenderness. [] Extremities: No tenderness, no cyanosis, no clubbing, ROM intact, no edema. [] Neurologic: Alert and oriented X 3, normal motor function, normal sensory function, no focal deficits noted. [] Psychologic: Affect normal, judgement normal, mood normal. [] EKG: EKG: Irregular rhythm, atrial fibrillation at 82 bpm, left axis deviation, QTC 515, no T wave inversions, no ST elevations or ST depressions, low voltage EKG Radiology/Procedures: Radiology/Procedures: IMAGING REPORT Signed PATIENT: SHIVAM CASTILLO ACCOUNT: [id number] : 1940 LOCATION: ER AGE: 79 SEX: M EXAM STATUS: REG ER ORD. PHYSICIAN: TAMARA CROFT DO REASON: cp PROCEDURE: CHEST PA & LATERAL CHEST PA LATERAL History: Reason: cp / Spl. Instructions: / History: Comparison: November 30, 2019 Findings: Linear bibasilar opacities. Left basilar calcified nodule, likely prior granulous disease, unchanged. No consolidation or pleural effusion. No pneumothorax. Normal heart size. Impression: 1. Linear bibasilar opacities, likely atelectasis. Electronically signed by: Abhinav Ralph DO (12/10/2019 9:56 AM) [id number] DICTATED AND SIGNED BY: ABHINAV RALPH DO DATE: 12/10/19 0956 CC: TAMARA CRFOT DO; DENNIS JEREZ MD ~ Course & Med Decision Making: Course & Med Decision Making Pertinent Labs and Imaging studies reviewed. (See chart for details) Concern for atypical chest pain in a moderate risk patient, with no dyspnea. Initial troponin negative. Potassium low at 2.8, oral replacement started in the ED. Will admit for telemetry with serial troponins and cardiology consultation. Patient agrees with this plan and was stable at time of admission. I have spoken with the patient and/or caregivers. I have explained the patient's condition, diagnosis and treatment plan based on the information available to me at this time. I have answered the patient's and/or caregivers questions and answered any concerns. The patient and/or caregivers have as good an understanding of the patient's diagnosis, condition and treatment plan as can be expected at this point. The patient has been stabilized within the capability of the emergency department. The patient will be transported for further care and management or will be moved to an observation or inpatient service. I have communicated with the staff or medical practitioner taking over this patient's care. Dragon Disclaimer: Dragon Disclaimer: This electronic medical record was generated, in whole or in part, using a voice recognition dictation system. Departure Departure: Impression: Primary Impression: Chest pain Additional Impression: Hypokalemia Disposition: ADMITTED INPATIENT Admitting Physician: Jorge L Warner Condition: STABLE Referrals: DENNIS JEREZ MD (PCP) Justification of Admission: Justification of Admission: Justification of Admission Dx: Yes Angina: [facility] Comments: chest pain TAMARA CROFT DO Dec 10, 2019 09:43
--- NOTE | 2019-12-10 09:59 | RAD ---
CHEST PA LATERAL History: Reason: cp / Spl. Instructions: / History: Comparison: November 30, 2019 Findings: Linear bibasilar opacities. Left basilar calcified nodule, likely prior granulous disease, unchanged. No consolidation or pleural effusion. No pneumothorax. Normal heart size. Impression: 1. Linear bibasilar opacities, likely atelectasis. Electronically signed by: Abhinav Ralph DO (12/10/2019 9:56 AM) [id number]
[2019-12-10 10:24] LABS: BASO # 0.1 x10^3/uL (0.0-0.2); BASO % 1 % (0-3); EOS # 0.5 x10^3/uL (0.0-0.7); EOS % 5 % (0-3); HEMATOCRIT 39.8 % (39.0-53.0); HEMOGLOBIN 13.4 g/dL (13.0-17.5); LYMPH # 0.9 x10^3/uL (1.0-4.8); LYMPH % 10 % (24-48); MEAN CORPUSCULAR HEMOGLOBIN 30 pg (25-35); MEAN CORPUSCULAR HGB CONC 34 g/dL (31-37); MEAN CORPUSCULAR VOLUME 89 fL (79-100); MONO # 0.8 x10^3/uL (0.0-1.1); MONO % 9 % (0-9); NEUT # 6.9 x10^3uL (1.8-7.7); NEUT % 76 % (31-73); PLATELET COUNT 208 x10^3/uL (140-400); RED BLOOD COUNT 4.47 x10^6/uL (4.30-5.70); WHITE BLOOD COUNT 9.1 x10^3/uL (4.0-11.0)
[2019-12-10 10:36] LABS: ALBUMIN 3.1 g/dL (3.4-5.0); ALBUMIN/GLOBULIN RATIO 0.8 (1.0-1.7); CALCIUM 9.1 mg/dL (8.5-10.1); CREATININE 1.5 mg/dL (0.7-1.3); TOTAL BILIRUBIN 0.8 mg/dL (0.2-1.0)
[2019-12-10 10:48] LABS: POTASSIUM 2.8 mmol/L (3.5-5.1)
[2019-12-10] MEDS ORDERED: POTASSIUM CITRATE 10 MEQ TABLET.ER PO STA (10:48)
[2019-12-10] MEDS ORDERED: POTASSIUM CHLORIDE 20 MEQ TABLET.ER. PO STA (11:16)
--- NOTE | 2019-12-10 14:07 | EKG ---
[address] [address] Test Date: 2019-12-10 Test Time: 09:37:35 Pat Name: SHIVAM CASTILLO Department: Room: 115 A Gender: M News Gathering Technician: : 1940 Requested By: TAMARA CROFT Order Number: [id number] Reading MD: Joe Ireland MD Measurements Intervals [place] Rate: 82 P: [place]: QRS: -34 QRSD: 90 T: 21 QT: 438 QTc: 515 Interpretive Statements Atrial fibrillation with controlled ventricular response Electronically Signed On 12-11-2019 16:28:41 CDT by Joe Ireland MD
[2019-12-10 14:11] VITALS: BP 129/85
--- NOTE | 2019-12-10 15:52 | NUR ---
ADMISSION PATIENT WOKE UP THIS MORNING WITH A SHARP CHEST PAIN RATING A 4/10 IN THE EMERGENCY DEPARTMENT. LABS WERE DRAWN AND PATIENT HAD A POTASSIUM LEVEL OF 2.8. REPLACED WITH 40 MEQ PO POTASSIUM. PATIENT DROVE HIMSELF AND WAS BROUGHT UP FROM THE ER VIA EMS. PATIENT IS ALERT AND ORIENTED. SKIN IS INTACT WITH SOME SLIGHT BRUISING ON THE LEFT SHOULDER FROM A FALL LAST MONTH IN OCTOBER. PATIENT HAS A HISTORY CAD X1 STENT, HTN, HYPERLIPIDEMIA, CHRONIC AFIB BEING TREATED WITH XARELTO, PATIENT IS OBESE AND AN EVERYDAY SMOKER. SURGERY HISTORY IS A ANGIOPLASTY AND TONSILLECTOMY. PATIENT WAS SEEN LAST MONTH AND WAS TREATED WITH WHAT THE PATIENT STATED " A REALLY REALLY BAD UTI" PATIENT IS VERY PLEASANT AND ANSWERED ALL QUESTIONS APPROPRIATELY. PATIENT IS STAND BY ASSIST WITH CANE. PATIENT IS CONTINENT. PATIENT IS ON TELE RUNNING AFIB. PATIENT IS ON A CARDIAC DIET. PATIENT HAS NO KNOWN ALLERGIES. PATIENTS LAST BM WAS 12/09/2019. PATIENT STATED IT WAS "IT WAS A VERY BIG ONE" PLAN IS TO OBSERVE PATIENT FOR HYPOKALEMIA AND ANY WORSENING SYMPTOMS REGARDING CHEST PAIN.
[2019-12-10 16:49] VITALS: BP 107/67
[2019-12-10 17:56] LABS: CREATININE 1.6 mg/dL (0.7-1.3); GFR 41.8
[2019-12-10 18:08] LABS: POTASSIUM 2.9 mmol/L (3.5-5.1)
[2019-12-10] MEDS ORDERED: POTASSIUM CHLORIDE 20 MEQ TABLET.ER. PO ONE ×2 (18:15→21:00)
--- NOTE | 2019-12-10 18:31 | HP ---
ADMIT DATE: 12/10/2019 HISTORY OF PRESENT ILLNESS: The patient is an 79-year-old male patient who apparently developed chest pain last night before he went to bed, took a day a nitroglycerin sublingually and when he woke up this morning, chest pain was still there; however, he denied any shortness of breath, denied any nausea, vomiting, diaphoresis, or radiation to pain. The pain continued, he arrived to the Emergency Room, where he was evaluated and has had an EKG, which showed that the patient had regular rhythm. In fact, he was in atrial fibrillation with a heart rate of 82 beats per minute with left axis deviation, a corrected QT interval of 515, no T-wave inversion or ST segment elevation. He has had a chest x-ray, which showed linear bibasilar opacities, left basilar calcified nodule, likely due to prior granulomatous disease, unchanged. No consolidation, pleural effusion, or pneumothorax, and heart size was normal. His lab work including troponin, which was less than 0.017. He was found also to be hypokalemic with the potassium was only 2.8. He was given 40 mEq of potassium chloride. The patient was admitted to do 2 more sets of cardiac enzymes, check his fasting lipid profile, and to consult the Cardiology. PAST MEDICAL HISTORY: Significant for coronary artery disease, status post stent deployment x 2. He is known to have COPD and atrial fibrillation, morbid obesity, obstructive sleep apnea on BiPAP machine at nighttime, as well as hyperlipidemia and hypertension. He was admitted recently for a complicated urinary tract infection, and in fact, he was treated with IV antibiotic. He has grown Escherichia coli, treated with IV Rocephin, I believe. PAST SURGICAL HISTORY: Significant for bilateral cataract extraction and umbilical hernia repair. He has also had tonsillectomy and uvulopalatoplasty for obstructive sleep apnea. ALLERGIES: He has no known drug allergies. FAMILY HISTORY: Noncontributory. SOCIAL HISTORY: He has no children of his own, he has stepchildren. He continued to smoke and apparently has started smoking when he was 13 years old. REVIEW OF SYSTEMS: As per history of present illness. MEDICATIONS: He is currently on following medications: He is on Xarelto 20 mg once a day, Plavix 75 mg once a day, atorvastatin calcium 40 mg at bedtime, metoprolol succinate 50 mg once a day, diltiazem 300 mg once a day, aspirin 81 mg once a day, citalopram hydrobromide 40 mg twice a day, furosemide 40 mg once a day, and metolazone 5 mg 2 times per week. He is not on any potassium. PHYSICAL EXAMINATION: GENERAL: On arrival to the Emergency Room, he looked well and was clearly in no apparent respiratory distress. No pallor, jaundice, cyanosis, or thyromegaly. No jugular venous distention. No limb edema. VITAL SIGNS: His heart rate was 86, blood pressure was 138/90, temperature was 98.2, respiratory rate 20, and oxygen saturation was 98%. HEAD, EYES, EARS, NOSE AND THROAT: Normocephalic, atraumatic. NECK: Supple. HEART: Showed normal first and second heart sounds. No gallop or murmur. CHEST: Clear to auscultation. No crepitation or rhonchi. ABDOMEN: Distended, soft, nontender. NEUROLOGIC: He was grossly intact. LABORATORY DATA: His lab work on arrival showed a white cell count of 9100, hemoglobin 13, hematocrit 39, MCV 89, and platelet count 208,000, with a manual differential showed 76% polymorphs, 10% lymphocytes, and 9% monocytes. His chemistry showed a serum sodium 140, potassium 2.8, chloride 98, bicarbonate 32, anion gap of 10, BUN 29, creatinine 1.5, estimated GFR was 45 mL per minute, his glucose 116, calcium 9.1, magnesium 2. Total bilirubin, AST, ALT, alkaline phosphatase were normal. His total protein was 7, albumin was 3.1. Lipase was 186. PLAN: Plan is to do 2 more sets of cardiac enzyme. I reconciled all his medication. We will check his fasting lipid profile, consult the regional project manager. I will start him also on potassium supplement given that he is on 2 diuretics without any potassium. BAMBI AVERY MD DR: MARTINA/tiffany JOB#: [id number] / [id number]
[2019-12-10 19:00] VITALS: BP 127/74
[2019-12-10] MEDS: POTASSIUM CHLORIDE 20 MEQ TABLET.ER. PO SCH (20:00)
[2019-12-10] MEDS ORDERED: ATORVASTATIN CALCIUM 20 MG TABLET PO SCH (21:00)
[2019-12-10 23:00] VITALS: BP 119/78
[2019-12-11 06:13] VITALS: BP 119/78
[2019-12-11 07:05] LABS: CALCIUM 9.2 mg/dL (8.5-10.1); CREATININE 1.4 mg/dL (0.7-1.3); GFR 48.8
[2019-12-11] MEDS: POTASSIUM CHLORIDE 20 MEQ TABLET.ER. PO SCH ×2 (08:39→14:36)
[2019-12-11] MEDS ORDERED: FUROSEMIDE 40 MG TABLET PO SCH (09:00)
[2019-12-11] MEDS ORDERED: CLOPIDOGREL BISULFATE 75 MG TABLET PO SCH (09:00)
[2019-12-11] MEDS ORDERED: ASPIRIN ENTERIC COATED 81 MG TABLET.DR. PO SCH (09:00)
[2019-12-11] MEDS ORDERED: METOPROLOL SUCC 24HR ER 50 MG TAB.ER.24H. PO SCH (09:00)
[2019-12-11] MEDS ORDERED: CITALOPRAM 20 MG TABLET. PO SCH ×2 (09:00)
[2019-12-11 11:29] VITALS: BP 112/80
[2019-12-11 15:00] VITALS: BP_SYST 170; BP_SYST 70; BP_DIAS 80
[2019-12-11] MEDS ORDERED: RIVAROXABAN 10 MG TABLET. PO SCH (17:00)
--- NOTE | 2019-12-11 17:13 | CONS ---
DATE OF CONSULTATION: 12/11/2019 REASON FOR CONSULTATION: Chest pain and hypokalemia. HISTORY OF PRESENT ILLNESS: The patient is a pleasant 79-year-old man who comes into the hospital in the setting of chest pain. 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 In this setting, he denies any active angina, but had some chest discomfort, which was nonradiating and nonexertional in nature. This did not necessarily resolve with nitroglycerin and was constant. Upon arrival to the ER, his EKG did not reveal any acute ischemia and his cardiac enzymes were negative. He was admitted for further evaluation and treatment. At this present time, he currently denies any active angina and he has been able to ambulate without any difficulty. PAST MEDICAL HISTORY: 1. Coronary artery disease, status post PCI. 2. Chronic atrial fibrillation, on anticoagulation. 3. COPD. 4. Obstructive sleep apnea. 5. Hypertension. 6. Morbid obesity. 7. Dyslipidemia. 8. 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 SOCIAL HISTORY: The patient denies any alcohol, tobacco or illicit drug use. ALLERGIES: No known drug allergies. CURRENT CARDIOVASCULAR MEDICATIONS: 1. Aspirin 81. 2. Atorvastatin 40 mg. 3. Plavix 75 mg. 4. Diltiazem 300 mg. 5. Lasix 40 mg. 6. Metolazone 5 mg twice weekly. 7. Metoprolol XL 50 mg daily. 8. Potassium chloride 20 mEq daily. 9. Xarelto 20 mg daily. REVIEW OF SYSTEMS: Negative unless otherwise mentioned above in HPI. PHYSICAL EXAMINATION: VITAL SIGNS: Afebrile, 85, 20, 112/80, 96% on room air. GENERAL: He is alert and oriented, no acute distress. HEAD AND NECK: Unremarkable. CARDIAC: Regular rate and rhythm without murmurs, rubs or gallops. LUNGS: Clear to auscultation bilaterally. ABDOMEN: Soft, obese, nontender. EXTREMITIES: No clubbing, cyanosis or edema. NEUROLOGIC: No focal deficits. MUSCULOSKELETAL: No trauma. DIAGNOSTIC STUDIES: Hemoglobin, platelets within normal limits. Cardiac enzymes negative x 2. EKG is unremarkable. Chest x-ray is unremarkable. IMPRESSION: 1. Noncardiac chest pain. 2. Multiple cardiovascular comorbidities as noted above. RECOMMENDATIONS: At this present time, no further cardiovascular intervention is necessary. Recent evaluation from a cardiac perspective includes a stress test in 2018, which revealed minimal ischemia. He has a fairly low risk presentation at this time and I would advise that he follow up with a primary clinical research management associate, Dr. Quiroz at and consider further evaluation as necessary. Thank you for this consultation. I have actually asked the patient to withhold his aspirin given that he is on triple therapy and has no clear indication for such. LAURIE HOLLAND MD DR: SHINE/tiffany JOB#: [id number] / [id number]
--- NOTE | 2019-12-11 18:01 | DS ---
DATE OF DISCHARGE: HOSPITAL COURSE: The patient is an 79-year-old male patient who was admitted with chest pain that was somewhat atypical. He has had 3 sets of cardiac enzymes that ruled out myocardial infarction and has had his fasting lipid profile showed that his LDL cholesterol was only 65. His potassium was low. It transpired to less than 2 diuretics without any potassium supplement or spironolactone. He was seen in consultation by the tool and die assembler, who recommended that the patient can be discharged to follow with his primary care physician and tool and die assembler. PHYSICAL EXAMINATION: GENERAL: When I saw him this afternoon, he was resting slightly propped up in bed, in no apparent respiratory distress. He was pale, no jaundice, cyanosis or thyromegaly. No jugular venous distention. No limb edema. VITAL SIGNS: His heart rate was 85, blood pressure 112/80, temperature was 97.7, respiratory rate was 20, and oxygen saturation was 97% on room air. HEAD, EYES, EARS, NOSE AND THROAT: Showed normocephalic, atraumatic. NECK: Supple. HEART: Showed normal first and second heart sounds. No gallop or murmur. CHEST: Clear to auscultation. No crepitation or rhonchi. ABDOMEN: Distended, soft, nontender. NEUROLOGIC: He was awake, alert, responding appropriately. All cranial nerves are intact. He moves extremities without difficulty. His intake over the last 24 hours was incompletely recorded. LABORATORY DATA: This morning showed a serum sodium 139, potassium 4, chloride 101, bicarbonate 30, anion gap of 8, BUN 22, creatinine 1.4, estimated GFR was 48 mL per minute, his glucose 113, calcium was 9.2. His serum triglycerides 127, total cholesterol 124, LDL cholesterol was 65, VLDL was 25, HDL was 34 and ratio was 3. His white cell count was 9000, hemoglobin 13, hematocrit 39, MCV 89 and platelet count 208,000. DISCHARGE MEDICATIONS: He was discharged home to continue on atorvastatin 40 mg at bedtime, citalopram hydrobromide 40 mg twice a day, clopidogrel 75 mg once a day, diltiazem 300 mg once a day, furosemide 40 mg once a day, metolazone 5 mg twice a day, metoprolol succinate 50 mg once a day, rivaroxaban for Xarelto 20 mg once a day. The tool and die assembler recommended discontinuation of his aspirin. FINAL DISCHARGE DIAGNOSES: 1. Chest pain, atypical, acute myocardial infarction ruled out. Other medical problems include coronary artery disease, status post stent deployment x 2. 2. Chronic obstructive pulmonary disease, atrial fibrillation, morbid obesity, obstructive sleep apnea, hyperlipidemia, hypertension, recent admission for complicated urinary tract infection, hypokalemia. We will discharge him with a script for potassium 20 mEq twice a day and he was advised to follow with his primary care physician, Dr. Giordano to check his potassium in 1 week. BAMBI AVERY MD DR: MARTINA/tiffany JOB#: [id number] / [id number]
[2019-12-12] MEDS ORDERED: metOLazone 5 MG TABLET PO SCH (09:00)
== END 2019-12-11 18:38 | disposition home or self-care (01) | DRG 392 ==
LOC: ER 09:30 → 1 SOUTH 11:17
PROVIDERS: ADMIT Internal Medicine; ATTEND Internal Medicine
DX: K21.9 Gastro-esophageal reflux disease without esophagitis (principal); I48.20 Chronic atrial fibrillation, unspecified; J98.11 Atelectasis; E87.6 Hypokalemia; E66.01 Morbid (severe) obesity due to excess calories; E78.5 Hyperlipidemia, unspecified; F17.200 Nicotine dependence, unspecified, uncomplicated; G47.33 Obstructive sleep apnea (adult) (pediatric); I10 Essential (primary) hypertension; I25.10 Atherosclerotic heart disease of native coronary artery without angina pectoris; J44.9 Chronic obstructive pulmonary disease, unspecified; Z79.01 Long term (current) use of anticoagulants; Z95.5 Presence of coronary angioplasty implant and graft; Z98.41 Cataract extraction status, right eye; Z98.42 Cataract extraction status, left eye; E66.9 Obesity, unspecified; Z68.35 Body mass index [BMI] 35.0-35.9, adult; Z87.440 Personal history of urinary (tract) infections
CPT/HCPCS: 36415; 71046; 80048; 80053; 80061; 83690; 83735; 84484; 85025; 93005; 99285-25

== ENCOUNTER 2020-02-16 10:09 | Emergency (ER) | payer MEDICARE, OTHER ==
[~2020-02-16] VITALS: Ht 180.3 cm; Wt 115.2 kg
[2020-02-16] MEDS ORDERED: ACETAMINOPHEN 500 MG TABLET PO ONE (10:30)
--- NOTE | 2020-02-16 11:09 | RAD ---
RIBS LEFT AND PA CHEST, SHOULDER 2+V LEFT History: Pain, fall, injury Comparison: December 09, 2021 view chest exam Left ribs and PA chest: Findings: Single view of the chest and 3 additional views left ribs are submitted. There is no pneumothorax, dependent pleural fluid, or lobar infiltrate. There is again somewhat tortuous thoracic aorta, atherosclerotic calcification near the aortic arch. Heart size is stable. No displaced left rib fracture is identified, mild lucency of the left lateral sixth rib possibly nondisplaced fracture. Impression: 1. There is possible nondisplaced left lateral sixth rib fracture, no displaced rib fracture identified by radiographs. Left shoulder radiographs FINDINGS: 3 views of left shoulder are submitted. No acute fracture or dislocation is identified by radiograph. IMPRESSION: 1.No acute osseous abnormality is identified by radiographs. Electronically signed by: Chadd Lucas MD (02/16/2020 11:06 AM) [facility]
[2020-02-16 11:52] VITALS: BP 145/76
--- NOTE | 2020-02-16 12:06 | PHYS DOC ---
Past History Past Medical History: A-Fib, CAD, COPD, Hypertension Past Surgical History: No Surgical History Smoking: Less than 1pk/day Alcohol Use: None General Adult EDM: Chief Complaint: MECHANICAL FALL HPI: HPI: Patient is an 79 year old male who presents for evaluation of left shoulder and left-sided mid rib pain. Patient had a fall last night where he fell from a step onto a rail. He has pinpoint pain on that left side ribs that radiate to his back. He denies hitting his head or having loss of consciousness. Patient is mildly short of air. Patient has a history of COPD and still smokes. He is oxygen dependent and has used 3 L nasal cannula every night. Patient is otherwise stable and no other areas of pain or injury reported. Patient is medically stable and ambulatory without difficulty Review of Systems: Review of Systems: Constitutional: Denies fever or chills Eyes: Denies change in visual acuity HENT: Denies nasal congestion or sore throat Respiratory: Denies cough has shortness of breath Cardiovascular: left side chest pain no edema GI: Denies abdominal pain, nausea, vomiting, bloody stools or diarrhea : Denies dysuria Musculoskeletal: Denies back pain or joint pain Integument: Denies rash Neurologic: Denies headache, focal weakness or sensory changes Endocrine: Denies polyuria or polydipsia Lymphatic: Denies swollen glands Psychiatric: Denies depression or anxiety Current Medications: Current Meds: Current Medications Medications (Trade) Dose Ordered Sig/Jacque Start Time Stop Time Status Last Admin Dose Admin Acetaminophen (Tylenol) 1,000 mg 1X ONCE 02/16/20 10:30 02/16/20 10:33 DC 02/16/20 10:56 1,000 MG Allergies: Allergies: Allergies Coded Allergies Type Severity Reaction Last Updated Verified No Known Drug Allergies 11/12/19 No Physical Exam: PE: Constitutional: Well developed, well nourished, mild acute distress, non-toxic appearance. [] HENT: Normocephalic, atraumatic, bilateral external ears normal, oropharynx moist, no oral exudates, nose normal, TM's normal. [] Eyes: PERRL, EOMI, conjunctiva normal, no discharge. [] Neck: Normal range of motion, no tenderness, supple, no stridor. [] Cardiovascular:Heart rate regular rhythm, no murmur [] Lungs & Thorax: Bilateral breath sounds slightly diminished but symmetric bilaterally, tender to palpation left side chest wall, no clinical evidence of a pneumothorax [] Abdomen: Bowel sounds normal, soft, no tenderness, no masses. [] Skin: Warm, dry, no erythema, no rash. [] Back: No tenderness, no CVA tenderness. [] Extremities: No tenderness, no cyanosis, ROM intact, no edema. [] Neurologic: Alert and oriented X 3, normal motor function, normal sensory function, no focal deficits noted. [] Psychologic: Affect normal, judgement normal, mood normal. [] Current Patient Data: Vital Signs: Vital Signs Date Time Temp Pulse Resp B/P (MAP) Pulse Ox O2 Delivery O2 Flow Rate FiO2 02/16/20 11:52 89 16 145/76 (99) 97 Room Air 02/16/20 10:22 98.0 EKG: EKG: [] Radiology/Procedures: Radiology/Procedures: [place] [address] IMAGING REPORT Signed PATIENT: SHIVAM CASTILLO ACCOUNT: [id number] : 1940 LOCATION: ER AGE: 79 SEX: M EXAM STATUS: REG ER ORD. PHYSICIAN: TERRY JACKSON DO REASON: pain, fall, injury PROCEDURE: SHOULDER 2+V LEFT RIBS LEFT AND PA CHEST, SHOULDER 2+V LEFT History: Pain, fall, injury Comparison: December 09, 2021 view chest exam Left ribs and PA chest: Findings: Single view of the chest and 3 additional views left ribs are submitted. There is no pneumothorax, dependent pleural fluid, or lobar infiltrate. There is again somewhat tortuous thoracic aorta, atherosclerotic calcification near the aortic arch. Heart size is stable. No displaced left rib fracture is identified, mild lucency of the left lateral sixth rib possibly nondisplaced fracture. Impression: 1. There is possible nondisplaced left lateral sixth rib fracture, no displaced rib fracture identified by radiographs. Left shoulder radiographs FINDINGS: 3 views of left shoulder are submitted. No acute fracture or dislocation is identified by radiograph. IMPRESSION: 1.No acute osseous abnormality is identified by radiographs. Electronically signed by: Emmy Doherty MD (02/16/2020 11:06 AM) [facility] DICTATED AND SIGNED BY: EMMY DOHERTY MD DATE: 02/16/20 1106 CC: TERRY JACKSON DO; DENNIS JEREZ MD ~[] Heart Score: Risk Factors: Risk Factors: DM, Current or recent (<one month) smoker, HTN, HLP, family history of CAD, obesity. Risk Scores: Score 0 - 3: 2.5% MACE over next 6 weeks - Discharge Home Score 4 - 6: 20.3% MACE over next 6 weeks - Admit for Clinical Observation Score 7 - 10: 72.7% MACE over next 6 weeks - Early Invasive Strategies Course & Med Decision Making: Course & Med Decision Making Pertinent Labs and Imaging studies reviewed. (See chart for details) [] Dragon Disclaimer: Dragon Disclaimer: This electronic medical record was generated, in whole or in part, using a voice recognition dictation system. 1205 stable, sixth rib fracture noted on left side, incentive spirometer given. Prescription for tramadol given as well. Patient is driving home so nothing stronger than Tylenol was given in the ER. No evidence of pneumothorax. He has no fracture noted on his shoulder. Supportive care recommended as well as using the incentive spirometer 10 times per hour while awake Departure Departure: Impression: Primary Impression: Left rib fracture Qualified Codes: S22.32XA - Fracture of one rib, left side, initial encounter for closed fracture Additional Impressions: Contusion of left shoulder Qualified Codes: S40.012A - Contusion of left shoulder, initial encounter Fall, accidental Qualified Codes: W19.XXXA - Unspecified fall, initial encounter Disposition: 01 DC HOME SELF CARE/HOMELESS Condition: STABLE Referrals: DENNIS JEREZ MD (PCP) Patient Instructions: Rib Fracture, Shoulder Sprain Additional Instructions: Use incentive spirometer 10 times per hour while awake, rest ice and elevate the injured area, use that device for the next 5 to 7 days Scripts Tramadol Hcl (ULTRAM) 50 Mg Tablet 1 TAB PO PRN Q6HRS PRN for pain MDD 4 Tablet(s) for 7 Days, #20 TAB 0 Refills Prov: TERRY JACKSON DO 02/16/20 TERRY JACKSON DO Feb 16, 2020 12:06
[2020-02-16] MEDS ORDERED: TRAM-48 PO (12:16)
== END 2020-02-16 12:23 | disposition home or self-care (01) ==
LOC: ER 10:09
DX: S22.32XA Fracture of one rib, left side, initial encounter for closed fracture (principal); S40.012A Contusion of left shoulder, initial encounter; I48.91 Unspecified atrial fibrillation; J44.9 Chronic obstructive pulmonary disease, unspecified; I25.10 Atherosclerotic heart disease of native coronary artery without angina pectoris; I10 Essential (primary) hypertension; F17.200 Nicotine dependence, unspecified, uncomplicated; W10.8XXA Fall (on) (from) other stairs and steps, initial encounter; Y93.89 Activity, other specified; Y92.89 Other specified places as the place of occurrence of the external cause; Y99.8 Other external cause status
CPT/HCPCS: 71101; 73030; 99284; G0238

== ENCOUNTER 2020-03-06 09:29 | Emergency (ER) | payer MEDICARE, OTHER ==
[~2020-03-06] VITALS: Ht 180.3 cm; Wt 126.6 kg
[~2020-03-06 09:29] MED LIST changes: +TRAM-48 PO
--- NOTE | 2020-03-06 10:11 | PHYS DOC ---
Past History Past Medical History: A-Fib, CAD, Depression, Hypertension Past Surgical History: Other Additional Past Surgical Histo: SLEEP APNEA SURGERY; CARDIAC STENTS Smoking: Less than 1pk/day Alcohol Use: Rarely Adult General Chief Complaint Chief Complaint: MULTIPLE COMPLAINTS HPI HPI Patient is a 79-year-old male who presents for hemoptysis. Reports expelling approximately 8 ounces total since onset for past 4 days without known inciting event. Denies any retching or emesis but admits coffee-ground appearing blood with clots present when coughing. This has happened to him "on and off" for past 4 years but nothing this persistent per patient. Nothing known makes better, nothing known makes worse. Patient denies any new/acute pain but does admit difficulty with urination which is new for him. Patient currently on Xarelto and Plavix for history of atrial fibrillation and has been taking these as prescribed. Reports history of intermittent alcohol abuse but denies any alcohol dependence or heavy use, has never been diagnosed with cirrhosis, last drink was 1 week ago. Patient has had a history of EGD in the past, last performed greater than 20 years ago and grossly unremarkable, no history of varices. Patient also reports frequent colonoscopies but admits he had his last colonoscopy approximately 5 years ago and was told that he had " too numerous to count" polyps and that because of his age, it was not indicated to continue colonoscopies. Admits bright red blood when wiping with minimal amount in stool, has known history of external hemorrhoids. Review of Systems Review of Systems Fourteen body systems of review of systems have been reviewed. See HPI for pertinent positives and negative responses, other gardiner all other systems are negative, non-pertinent or non-contributory Allergies Allergies Allergies Coded Allergies Type Severity Reaction Last Updated Verified No Known Drug Allergies 11/12/19 No Physical Exam Physical Exam Constitutional: Well developed, well nourished, morbidly obese, no acute distress, non-toxic appearance. HENT: Normocephalic, atraumatic, bilateral external ears normal, oropharynx moist with bright red blood noted in posterior pharynx, no oral exudates, nose normal. Eyes: PERRLA, EOMI, conjunctiva normal, no discharge. Neck: Normal range of motion, no tenderness, supple, no stridor. Cardiovascular: Heart rate tachycardic on arrival, irregular rhythm, no murmurs rubs or gallops Lungs & Thorax: Bilateral breath sounds clear to auscultation but decreased due to body habitus Abdomen: Bowel sounds normal, protuberant, mild suprapubic tenderness, no masses, no pulsatile masses. Nonsurgical abdomen, no peritoneal signs. Rectal exam performed, numerous external hemorrhoids without any which are obviously thrombosed, sphincter tone intact, no abnormalities noted within rectal vault Skin: Warm, dry, no erythema, no rash. Numerous seborrheic keratoses present on back concerning for Leser-Trelat sign Back: No tenderness, no CVA tenderness. Extremities: No tenderness, no cyanosis, no clubbing, ROM intact, no edema. Neurologic: Alert and oriented X 3, grossly normal motor & sensory function, no focal deficits noted. Psychologic: Affect normal, judgement normal, mood normal. Current Patient Data Vital Signs Vital Signs Date Time Temp Pulse Resp B/P (MAP) Pulse Ox O2 Delivery O2 Flow Rate FiO2 03/06/20 09:30 98.2 123 15 124/71 (88) 97 Room Air Lab Results Laboratory Tests Test 03/06/20 10:15 03/06/20 10:45 03/06/20 11:00 03/06/20 16:15 White Blood Count 13.7 x10^3/uL (4.0-11.0) 13.2 x10^3/uL (4.0-11.0) Red Blood Count 4.66 x10^6/uL (4.30-5.70) 4.74 x10^6/uL (4.30-5.70) Hemoglobin 13.4 g/dL (13.0-17.5) 13.5 g/dL (13.0-17.5) Hematocrit 41.5 % (39.0-53.0) 42.1 % (39.0-53.0) Mean Corpuscular Volume 89 fL (79-100) 89 fL (79-100) Mean Corpuscular Hemoglobin 29 pg (25-35) 29 pg (25-35) Mean Corpuscular Hemoglobin Concent 32 g/dL (31-37) 32 g/dL (31-37) Red Cell Distribution Width 15.4 % (11.5-14.5) 15.1 % (11.5-14.5) Platelet Count 272 x10^3/uL (140-400) 246 x10^3/uL (140-400) Neutrophils (%) (Auto) 81 % (31-73) 79 % (31-73) Lymphocytes (%) (Auto) 7 % (24-48) 8 % (24-48) Monocytes (%) (Auto) 7 % (0-9) 8 % (0-9) Eosinophils (%) (Auto) 5 % (0-3) 4 % (0-3) Basophils (%) (Auto) 1 % (0-3) 1 % (0-3) Neutrophils # (Auto) 11.1 x10^3uL (1.8-7.7) 10.5 x10^3uL (1.8-7.7) Lymphocytes # (Auto) 0.9 x10^3/uL (1.0-4.8) 1.0 x10^3/uL (1.0-4.8) Monocytes # (Auto) 1.0 x10^3/uL (0.0-1.1) 1.0 x10^3/uL (0.0-1.1) Eosinophils # (Auto) 0.7 x10^3/uL (0.0-0.7) 0.6 x10^3/uL (0.0-0.7) Basophils # (Auto) 0.1 x10^3/uL (0.0-0.2) 0.1 x10^3/uL (0.0-0.2) Prothrombin Time 11.4 SEC (9.4-11.4) Prothromb Time International Ratio 1.1 (0.9-1.1) Activated Partial Thromboplast Time 33 SEC (23-33) Sodium Level 140 mmol/L (136-145) Potassium Level 4.3 mmol/L (3.5-5.1) Chloride Level 106 mmol/L (98-107) Carbon Dioxide Level 25 mmol/L (21-32) Anion Gap 9 (6-14) Blood Urea Nitrogen 14 mg/dL (8-26) Creatinine 1.1 mg/dL (0.7-1.3) Estimated GFR (Cockcroft-Gault) 64.4 BUN/Creatinine Ratio 13 (6-20) Glucose Level 101 mg/dL (70-99) Lactic Acid Level 1.3 mmol/L (0.4-2.0) Calcium Level 9.1 mg/dL (8.5-10.1) Total Bilirubin 0.5 mg/dL (0.2-1.0) Aspartate Amino Transf (AST/SGOT) 17 U/L (15-37) Alanine Aminotransferase (ALT/SGPT) 18 U/L (16-63) Alkaline Phosphatase 98 U/L (46-116) Troponin I Quantitative < 0.017 ng/mL (0-0.055) Total Protein 7.0 g/dL (6.4-8.2) Albumin 3.2 g/dL (3.4-5.0) Albumin/Globulin Ratio 0.8 (1.0-1.7) Urine Collection Type Void Urine Color Yellow Urine Clarity Cloudy Urine pH 5.0 Urine Specific Proctor 1.015 Urine Protein Neg (NEG-TRACE) Urine Glucose (UA) Neg mg/dL (NEG) Urine Ketones (Stick) Neg mg/dL (NEG) Urine Blood Trace (NEG) Urine Nitrite Neg (NEG) Urine Bilirubin Neg (NEG) Urine Urobilinogen Dipstick 0.2 mg/dL (0.2 mg/dL) Urine Leukocyte Esterase Large (NEG) Urine RBC 3-5 /HPF (0-2) Urine WBC >40 /HPF (0-4) Urine Squamous Epithelial Cells Occ /LPF Urine Bacteria Many /HPF (0-FEW) SARS-CoV-2 Antigen (Rapid) Negative (NEGATIVE) EKG EKG EKG ordered and interpreted by myself as atrial fibrillation with rapid ventricular rate approximately 125 bpm, prolonged QTC at 481, left axis deviation, no obvious ischemic findings, no STEMI Radiology/Procedures Radiology/Procedures PROCEDURE: PORTABLE CHEST 1V Examination: PORTABLE CHEST 1V History: Reason: gi bleed /pain Comparison/Correlation: 02/16/2020 PA view chest and left RIBS Findings: Portable frontal views of the chest were provided. Heart size and pulmonary vessels are normal. No infiltrate or pleural effusion. No infiltrate. Degenerative changes of the acromioclavicular joints are consistent with age. Impression: No suspicious process. Electronically signed by: Nitin Vee MD (03/06/2020 11:39 AM) [id number] Heart Score HEART Score for Chest Pain: HEART Score for Chest Pain Response (Comments) Value History Slighlty/Non-Suspicious 0 ECG Normal 0 Age > 65 2 Risk Factors >3 Risk Factors or Hx CAD 2 Troponin < Normal Limit 0 Total 4 Risk Factors: Risk Factors: DM, Current or recent (<one month) smoker, HTN, HLP, family history of CAD, obesity. Risk Scores: Risk Factors: DM, Current or recent (<one month) smoker, HTN, HLP, family history of CAD, obesity. Course & Med Decision Making Course & Med Decision Making Pertinent Labs and Imaging studies reviewed. (See chart for details) Discussed most likely diagnosis of GI bleed in high risk patient on Plavix & Xarelto who presented to ED tachycardic. Patient also appears to have UTI IV access obtained, 500ml IV NS and 40mg IV Protonix administered, decision made to DISCONTINUE Xarelto & Plavix, 2g Rocephin given for UTI Discussed need for transfer to [facility] for inpatient management and evaluation with GI physician for potential need for inpatient EGD/colonoscopy. Dr. Warner at [facility] called and case discussed, he agreed for transfer under his care Plan of care discussed with patient. He wanted to be discharged home but i advised this would be AMA given high-risk nature of patient case. He was agreeable for continued ED hold until room at [facility] made available At this time in care, my shift has ended. Patient stable with no recurrent episodes of bloody hemoptysis, stable Hgb, and still pending ER transport to [facility] for admission. Signout given to Dr. Mejia, please defer to his documentation if future care is provided past my shift/signout. Dragon Disclaimer Dragon Disclaimer This electronic medical record was generated, in whole or in part, using a voice recognition dictation system. Departure Departure: Impression: Primary Impression: GI bleed Additional Impressions: Urinary tract infection in male Atrial fibrillation group home current use of anticoagulant therapy Disposition: 02 DC/TRF OTHER SHORT TERM HOS ([facility]) Admitting Physician: Jorge L Warner Referrals: DENNIS JEREZ MD (PCP) Problem Qualifiers OSMANILAURA Mar 06, 2020 10:11
[2020-03-06] MEDS ORDERED: IV NORMAL SALINE 500ML 500 ML IV ONE (10:15)
[2020-03-06] MEDS ORDERED: PANTOPRAZOLE IV 40 MG VIAL. IVP ONE (10:15)
[2020-03-06 10:40] LABS: BASO # 0.1 x10^3/uL (0.0-0.2); BASO % 1 % (0-3); EOS # 0.7 x10^3/uL (0.0-0.7); EOS % 5 % (0-3); HEMATOCRIT 41.5 % (39.0-53.0); HEMOGLOBIN 13.4 g/dL (13.0-17.5); LYMPH # 0.9 x10^3/uL (1.0-4.8); LYMPH % 7 % (24-48); MEAN CORPUSCULAR HEMOGLOBIN 29 pg (25-35); MEAN CORPUSCULAR HGB CONC 32 g/dL (31-37); MEAN CORPUSCULAR VOLUME 89 fL (79-100); MONO % 7 % (0-9); NEUT # 11.1 x10^3uL (1.8-7.7); NEUT % 81 % (31-73); PLATELET COUNT 272 x10^3/uL (140-400); RED BLOOD COUNT 4.66 x10^6/uL (4.30-5.70); RED CELL DISTRIBUTION WIDTH 15.4 % (11.5-14.5); WHITE BLOOD COUNT 13.7 x10^3/uL (4.0-11.0)
[2020-03-06 10:45] LABS: CALCIUM 9.1 mg/dL (8.5-10.1); CREATININE 1.1 mg/dL (0.7-1.3); GFR 64.4; POTASSIUM 4.3 mmol/L (3.5-5.1)
[2020-03-06 10:59] LABS: ALBUMIN 3.2 g/dL (3.4-5.0); ALBUMIN/GLOBULIN RATIO 0.8 (1.0-1.7); TOTAL BILIRUBIN 0.5 mg/dL (0.2-1.0)
[2020-03-06 11:15] LABS: BACTERIA,URINE MANY /HPF (0-FEW); BILIRUBIN,URINE NEG (NEG); CLARITY,URINE CLOUDY; COLOR,URINE YELLOW; GLUCOSE,URINE NEG (NEG); NITRITE,URINE NEG (NEG); UROBILINOGEN,URINE 0.2 mg/dL (0.2 mg/dL); WBC,URINE >40 /HPF (0-4)
[2020-03-06 11:16] LABS: SQUAMOUS EPITHELIAL CELL,UR OCC /LPF
[2020-03-06] MEDS ORDERED: IV NORMAL SALINE 100ML 100 ML ONE (11:37)
--- NOTE | 2020-03-06 11:42 | RAD ---
Examination: PORTABLE CHEST 1V History: Reason: gi bleed /pain Comparison/Correlation: 02/16/2020 PA view chest and left RIBS Findings: Portable frontal views of the chest were provided. Heart size and pulmonary vessels are normal. No infiltrate or pleural effusion. No infiltrate. Degenerative changes of the acromioclavicular joints are consistent with age. Impression: No suspicious process. Electronically signed by: Nitin Vee MD (03/06/2020 11:39 AM) [id number]
[2020-03-06 16:29] LABS: BASO # 0.1 x10^3/uL (0.0-0.2); BASO % 1 % (0-3); EOS # 0.6 x10^3/uL (0.0-0.7); EOS % 4 % (0-3); HEMATOCRIT 42.1 % (39.0-53.0); HEMOGLOBIN 13.5 g/dL (13.0-17.5); LYMPH % 8 % (24-48); MEAN CORPUSCULAR HEMOGLOBIN 29 pg (25-35); MEAN CORPUSCULAR HGB CONC 32 g/dL (31-37); MEAN CORPUSCULAR VOLUME 89 fL (79-100); MONO % 8 % (0-9); NEUT # 10.5 x10^3uL (1.8-7.7); NEUT % 79 % (31-73); PLATELET COUNT 246 x10^3/uL (140-400); RED BLOOD COUNT 4.74 x10^6/uL (4.30-5.70); RED CELL DISTRIBUTION WIDTH 15.1 % (11.5-14.5); WHITE BLOOD COUNT 13.2 x10^3/uL (4.0-11.0)
[2020-03-06 20:55] VITALS: BP 124/54
--- NOTE | 2020-03-07 06:37 | EKG ---
[facility] ED [facility] [address] [place] [id number] Test Date: 2020-03-06 Test Time: 10:28:06 Pat Name: SHIVAM CASTILLO Department: Room: Gender: M Tanning Consultant: [facility] : 1940 Requested By: LAURA KEEN Order Number: [id number] Reading MD: Measurements Intervals [place] Rate: 125 P: W[place]: QRS: -36 QRSD: 78 T: 31 QT: 332 QTc: 481 Interpretive Statements IRREGULAR RHYTHM, NO P-WAVE FOUND ABNORMAL LEFT AXIS DEVIATION LOW LIMB LEAD VOLTAGE QRS(T) CONTOUR ABNORMALITY CONSISTENT WITH INFERIOR INFARCT PROBABLY OLD ABNORMAL ECG RI6.02 No previous ECG available for comparison
== END 2020-03-06 22:00 | disposition short-term general hospital (02) ==
LOC: ER 09:29
DX: K92.2 Gastrointestinal hemorrhage, unspecified (principal); N39.0 Urinary tract infection, site not specified; I48.91 Unspecified atrial fibrillation; K64.4 Residual hemorrhoidal skin tags; I25.10 Atherosclerotic heart disease of native coronary artery without angina pectoris; I10 Essential (primary) hypertension; F17.210 Nicotine dependence, cigarettes, uncomplicated; Z79.01 Long term (current) use of anticoagulants; Z20.828 Contact with and (suspected) exposure to other viral communicable diseases
CPT/HCPCS: 36415; 71045; 80053; 81001; 83605; 84484; 85025; 85610; 85730; 87040; 87086; 87426; 93005; 96361; 96365; 96375; 99285; C9113; C9803; J0696; J7040; U0003

== ENCOUNTER → 2020-05-18 | Outpatient (CLI) | payer MEDICARE, OTHER ==
--- NOTE | 2020-05-18 12:58 | RAD ---
PQRS Compliance Statement: One or more of the following individualized dose reduction techniques were utilized for this examinat ion: 1. Automated exposure control 2. Adjustment of the mA and/or kV according to patient size 3. Use of iterative reconstruction technique CT THORAX WO 05/18/2020 9:24 AM Indication: Smoker for 60 years, one pack per day. Lung nodule. COMPARISON: CT CT chest 03/08/2020 TECHNIQUE: Multiple axial CT images of the chest were obtained without venous contrast. Coronal and s agittal reformats are provided. FINDINGS: Mild centrilobular pulmonary emphysema. Mild bronchial wall thickening compatible with nonspecific br onchitis. There is a 9 mm calcination urinoma the left lung base. Additional scattered calcified gran ulomas are present. Superior segment right lower lobe there is a stable 7.5 mm solid noncalcified pul monary nodule (series 2, image 137). No new or enlarging solid noncalcified pulmonary nodules. No ple ural effusions, pulmonary vascular congestion or pneumothorax. Heart size within normal limits. Three -vessel coronary artery vascular calculations are present. Thoracic aorta is ectatic measuring up to 4.0 cm. There is mild to moderate calcified atheromatous plaque. No pathologically enlarged thoracic lymph nodes are identified. Calcified left hilar lymph nodes present. Thoracic esophagus is normal in appearance. No suspicious abnormalities identified within the visualized portions of the upper abdom en within the limitations of a noncontrast examination. No suspicious osseous normality is identified . Moderate degenerative disc disease identified at T7-T8 with vacuum disc phenomenon and endplate scl erosis with moderate disc height loss. IMPRESSION: 1. COPD changes with stable 7.5 mm solid noncalcified pulmonary nodule in the super segment right low er lobe. 6-12 month follow-up chest CT is recommended to ensure stability. 2. Dense three-vessel coronary artery vascular calcifications. 3. Sequela prior granulomatous exposure as described in detail above with calcified granuloma and carson cified hilar lymph nodes. Electronically signed by: Clara Solomon MD (05/18/2020 12:56 PM) [id number]
== END ==
LOC: CT 08:31
PROVIDERS: ATTEND Internal Medicine Pulmonary Disease
DX: J43.2 Centrilobular emphysema (principal); I70.0 Atherosclerosis of aorta; J40 Bronchitis, not specified as acute or chronic; M51.34 Other intervertebral disc degeneration, thoracic region; F17.200 Nicotine dependence, unspecified, uncomplicated
CPT/HCPCS: 71250

== ENCOUNTER → 2020-07-07 | Outpatient (CLI) | payer MEDICARE, OTHER ==
--- NOTE | 2020-07-07 13:12 | RAD ---
EXAM: Left lower extremity venous Doppler sonogram. HISTORY: Pain and swelling. TECHNIQUE: Marquez scale and color Doppler sonographic evaluation of the left lower extremity veins with spectral waveform analysis was performed. FINDINGS: There is normal color flow, normal compressibility and there are normal spectral waveforms in the common femoral, superficial femoral, popliteal, posterior tibial and greater saphenous veins. IMPRESSION: No Doppler evidence of lower extremity deep venous thrombosis. Electronically signed by: Flora Kenney MD (07/07/2020 1:09 PM) [id number]
== END ==
LOC: US 12:08
PROVIDERS: ATTEND Family Medicine
DX: I83.892 Varicose veins of left lower extremity with other complications (principal)
CPT/HCPCS: 93971

== ENCOUNTER 2020-11-09 17:31 | Inpatient (IN) | payer MEDICARE, OTHER ==
[~2020-11-09] VITALS: Ht 180.3 cm; Wt 120.0 kg
[2020-11-09] MEDS ORDERED: IV RINGERS SOLUTION,LACTATED 1,000 ML IV SCH (17:45)
[2020-11-09] MEDS ORDERED: IV NORMAL SALINE 50ML 50 ML ONE (18:15)
[2020-11-09] MEDS ORDERED: cefTRIAXone SODIUM 1 GM VIAL ONE (18:15)
--- NOTE | 2020-11-09 18:21 | PHYS DOC ---
Past History Past Medical History: A-Fib, CAD, Depression, Hypertension Additional Past Medical Histor: BPH Past Surgical History: No Surgical History Additional Past Surgical Histo: SLEEP APNEA SURGERY; CARDIAC STENTS Smoking: Less than 1pk/day Alcohol Use: Rarely General Adult EDM: Chief Complaint: RAPID HEART RATE HPI: HPI: ".. I ve been feeling crappy the last couple days.. short of breath, fever, coughing.. weak.. fast heart rate.. I just sick..." Patient is a 80 year old male who presents with above history and complaints of increased dyspnea, fever and weakness. Patient states he been compliant with his meds. Patient normally follows with Dr. Jerez as primary. Patient has significant past medical history of coronary artery disease status post stent deployment x2, COPD, atrial fibrillation, morbid obesity, obstructive sleep apnea on BiPAP, hyperlipidemia, hypertension, UTIs, and oxygen dependent. At 2 to 3 L. No recent travel. No specific ill contacts. No history of immunosuppression. Last admitted in November 2019 for chest pain work-up. Patient has completed Real Time Translation x2 in April. Has been on Xarelto as an anticoagulant. Patient does continue to smoke tobacco. Review of Systems: Review of Systems: Constitutional: Complains of fever or chills Eyes: Denies change in visual acuity HENT: Denies nasal congestion or sore throat Respiratory: Complaints of cough and shortness of breath Cardiovascular: Denies chest pain or edema GI: Denies abdominal pain, nausea, vomiting, bloody stools or diarrhea : Denies dysuria Musculoskeletal: Chronic joint pain Integument: Denies rash Neurologic: Denies headache, focal weakness or sensory changes Endocrine: Denies polyuria or polydipsia Lymphatic: Denies swollen glands Psychiatric: Denies depression or anxiety Family History: Family History: Noncontributory to presentation Current Medications: Current Meds: Current Medications Medications (Trade) Dose Ordered Sig/Jacque Start Time Stop Time Status Last Admin Dose Admin Ceftriaxone Sodium 1 gm/ Sodium Chloride 50 ml @ 100 mls/hr 1X ONCE 11/09/20 18:00 11/09/20 18:29 Ceftriaxone Sodium (Rocephin) 1 gm STK-MED ONCE 11/09/20 18:15 11/09/20 18:15 DC Lactated Ringer's 1,000 ml @ 100 mls/hr Q10H 11/09/20 17:45 7/16/21 03:44 Sodium Chloride 50 ml @ As Directed STK-MED ONCE 11/09/20 18:15 11/09/20 18:15 DC Allergies: Allergies: Allergies Coded Allergies Type Severity Reaction Last Updated Verified No Known Drug Allergies 11/12/19 No Physical Exam: PE: Constitutional: Moderate acute distress, non-toxic appearance. [] HENT: Normocephalic, atraumatic, bilateral external ears normal, oropharynx moist, no oral exudates, nose normal. [] Eyes: PERRLA, EOMI, conjunctiva normal, no discharge. [] Neck: Normal range of motion, no tenderness, supple, no stridor. [] Cardiovascular: Tachycardia heart rate, irregular rhythm, no murmur []. PMI to left. Bed side monitor shows Afib. pattern. Lungs & Thorax: Bilateral breath sounds equal apex with scattered wheezes and some basilar crackles on auscultation [] Abdomen: Bowel sounds normal, soft, no tenderness, no masses, no pulsatile masses. Morbidly obese. Old surgery scar. Skin: Warm, dry, no erythema, no rash. [] Back: No tenderness, no CVA tenderness. [] Extremities: No tenderness, no cyanosis, no clubbing, ROM intact, leg edema. [] Neurologic: Alert and oriented X 3, moves all extremities on request, does have distal sensory,, no focal deficits noted. [] Psychologic: Affect anxious, judgement normal, mood normal. [] Current Patient Data: Vital Signs: Vital Signs Date Time Temp Pulse Resp B/P (MAP) Pulse Ox O2 Delivery O2 Flow Rate FiO2 11/09/20 17:56 100.1 89 26 111/72 96 Nasal Cannula 3.0 EKG: EKG: My interpretation EKG #1 shows a irregular rhythm at 94 bpm. Overall morphology consistent with A. fib. Does have some left axis deviation. Does have a fascicular block. No findings of acute STEMI or contralateral changes. Abnormal EKG. Time of this EKG was 1744 hrs. My interpretation EKG #2 shows a regular rhythm at 87 bpm. There is left axis deviation. Had a fascicular block. No acute morphology change from prior EKG on file. Time of this EKG at 1836 hrs. abnormal EKG. Radiology/Procedures: Radiology/Procedures: [][address] [address] IMAGING REPORT Signed PATIENT: SHIVAM CASTILLO ACCOUNT: [id number] : 1940 LOCATION: ER AGE: 80 SEX: M EXAM STATUS: REG ER ORD. PHYSICIAN: QASIM BROWER MD REASON: tachy, dyspnea PROCEDURE: PORTABLE CHEST 1V XR CHEST 1V 11/09/2020 6:01 PM INDICATION: Tachycardia, dyspnea COMPARISON: 03/06/2020 TECHNIQUE: Portable frontal view of the chest is provided. FINDINGS: The cardiomediastinal silhouette is within normal limits. Thoracic aorta is mildly tortuous with calcified plaque. Lungs are clear. There are no significant pleural effusions. There is no pulmonary vascular congestion. No pneumothorax. No suspicious osseous abnormality. IMPRESSION: There is no acute cardiopulmonary process. Electronically signed by: Julio C Hernandes MD (11/09/2020 6:49 PM) [facility] DICTATED AND SIGNED BY: JULIO C HERNANDES MD DATE: 11/09/201846 CC: QASIM BROWER MD; DENNIS JEREZ MD ~MTH0 0 Heart Score: C/O Chest Pain: Yes HEART Score for Chest Pain: HEART Score for Chest Pain Response (Comments) Value History Highly Suspicious [address] Depression 2 Age > 65 2 Risk Factors 1 or 2 Risk Factors 1 Troponin >1-<3x Normal Limit 1 Total 8 Risk Factors: Risk Factors: DM, Current or recent (<one month) smoker, HTN, HLP, family history of CAD, obesity. Risk Scores: Score 0 - 3: 2.5% MACE over next 6 weeks - Discharge Home Score 4 - 6: 20.3% MACE over next 6 weeks - Admit for Clinical Observation Score 7 - 10: 72.7% MACE over next 6 weeks - Early Invasive Strategies Course & Med Decision Making: Course & Med Decision Making Pertinent Labs and Imaging studies reviewed. (See chart for details) Discussed presentation, testing and treatment plan with . Plan admit and cardiology consult. Impression: 1. Fever 2. Dyspnea- 3. COPD Exacerbation 4. CHF- BNP 1631 5. Leukocytosis 13.9 6. Morbid Obesity 7. Afib. [] Dragdarrick Disclaimer: Simone Disclaimer: This electronic medical record was generated, in whole or in part, using a voice recognition dictation system. Departure Departure: Referrals: DENNIS JEREZ MD (PCP) Simone Disclaimer This chart was dictated in whole or in part using Voice Recognition software in a busy, high-work load, and often noisy Emergency Department environment. It may contain unintended and wholly unrecognized errors or omissions. QASIM BROWER MD Nov 09, 2020 18:21
--- NOTE | 2020-11-09 18:52 | RAD ---
XR CHEST 1V 11/09/2020 6:01 PM INDICATION: Tachycardia, dyspnea COMPARISON: 03/06/2020 TECHNIQUE: Portable frontal view of the chest is provided. FINDINGS: The cardiomediastinal silhouette is within normal limits. Thoracic aorta is mildly tortuous with calc ified plaque. Lungs are clear. There are no significant pleural effusions. There is no pulmonary vascular congestion. No pneumothora x. No suspicious osseous abnormality. IMPRESSION: There is no acute cardiopulmonary process. Electronically signed by: Clara Solomon MD (11/09/2020 6:49 PM) [facility]
[2020-11-09 19:12] LABS: CALCIUM 8.4 mg/dL (8.5-10.1); CREATININE 1.2 mg/dL (0.7-1.3); GFR 58.1; POTASSIUM 4.3 mmol/L (3.5-5.1)
[2020-11-09 19:14] LABS: BASO % 0 % (0-3); EOS # 0.1 x10^3/uL (0.0-0.7); EOS % 1 % (0-3); HEMOGLOBIN 13.9 g/dL (13.0-17.5); LYMPH # 0.2 x10^3/uL (1.0-4.8); LYMPH % 2 % (24-48); MEAN CORPUSCULAR HEMOGLOBIN 29 pg (25-35); MEAN CORPUSCULAR HGB CONC 33 g/dL (31-37); MEAN CORPUSCULAR VOLUME 87 fL (79-100); MONO # 0.8 x10^3/uL (0.0-1.1); MONO % 6 % (0-9); NEUT # 12.7 x10^3uL (1.8-7.7); NEUT % 92 % (31-73); PLATELET COUNT 226 x10^3/uL (140-400); RED BLOOD COUNT 4.86 x10^6/uL (4.30-5.70); RED CELL DISTRIBUTION WIDTH 16.8 % (11.5-14.5); WHITE BLOOD COUNT 13.9 x10^3/uL (4.0-11.0)
[2020-11-09] MEDS ORDERED: IPRATRPIUM/ALBUTEROL 0.5/2.5MG 3 ML NEBU. NEB ONE (19:15)
[2020-11-09] MEDS ORDERED: AZITHROMYCIN 250 MG TABLET. PO ONE (19:15)
[2020-11-09] MEDS ORDERED: methylPREDNISolone SOD SUCC PF 125 MG/2 ML VIAL. IV ONE (19:15)
[2020-11-09] MEDS: IPRATRPIUM/ALBUTEROL 0.5/2.5MG 3 ML NEBU. NEB SCH (19:20)
[2020-11-09 19:24] LABS: ALBUMIN 3.3 g/dL (3.4-5.0); C REACTIVE PROTEIN 8.7 mg/L (0-3.3); DIRECT BILIRUBIN 0.2 mg/dL (0.0-0.2); TOTAL BILIRUBIN 0.7 mg/dL (0.2-1.0); TOTAL PROTEIN 6.2 g/dL (6.4-8.2)
[2020-11-09] MEDS ORDERED: FUROSEMIDE 40 MG/4 ML VIAL IVP ONE (19:45)
[2020-11-09] MEDS ORDERED: ONDANSETRON PF 4 MG/2 ML VIAL. IVP PRN (19:45)
[2020-11-09] MEDS ORDERED: ONDANSETRON PF 4 MG/2 ML VIAL. IVP ONE (20:00)
[2020-11-09] MEDS: RIVAROXABAN 10 MG TABLET. PO SCH (20:53)
[2020-11-09] MEDS ORDERED: IPRATRPIUM/ALBUTEROL 0.5/2.5MG 3 ML NEBU. NEB SCH (21:00)
[2020-11-09 21:31] VITALS: BP 122/62
[2020-11-09] MEDS: FUROSEMIDE 40 MG/4 ML VIAL IVP SCH (22:26)
[2020-11-09] MEDS: diphenhydrAMINE 50 MG/ML VIAL IVP SCH (22:26)
[2020-11-09] MEDS ORDERED: ACET500T68 PO (23:09)
[2020-11-09] MEDS ORDERED: ASPI-630 PO (23:09)
[2020-11-09] MEDS ORDERED: ZOLP5TAB5 PO (23:09)
[2020-11-09] MEDS ORDERED: Super Beta Prostate PO (23:09)
[2020-11-09] MEDS ORDERED: NITR0.4T22 SL (23:09)
[2020-11-09] MEDS ORDERED: POTA99TA3 PO (23:09)
--- NOTE | 2020-11-09 23:35 | NUR ---
PT ADMITTED TO [facility] ACCOMPANIED BY ER STAFF. PT AMBULATED FROM GURNEY TO BED INDEPENDENTLY W/ PTS PERSONAL CANE. PT IS AOX4. PT HAD NO COMPLAINTS OF PAIN AT THE TIME OF ADMISSION. PT HAD BROUGHT HOME MEDICATIONS TO HOSPITAL. MEDICATIONS WHERE TAKEN OUT OF ROOM AND PLACED IN PHARMACY. PT WAS GIVEN BOX LUNCH AND IS NOW RESTING COMFORTABLY IN BED W/ CALL LIGHT IN REACH.
--- NOTE | 2020-11-10 00:50 | EKG ---
[address] [address] Test Date: 2020-11-09 Test Time: 17:44:25 Pat Name: SHIVAM CASTILLO Department: Room: Gender: M New Product Trainer: MRALYN : 1940 Requested By: QASIM BROWER Order Number: [id number] Reading MD: Measurements Intervals [place] Rate: 94 P: RI: QRS: -41 QRSD: 78 T: 58 QT: 364 QTc: 461 Interpretive Statements IRREGULAR RHYTHM, NO P-WAVE FOUND ABNORMAL LEFT AXIS DEVIATION LOW LIMB LEAD VOLTAGE LEFT ANTERIOR FASCICULAR BLOCK ABNORMAL ECG RI6.02 No previous ECG available for comparison
--- NOTE | 2020-11-10 03:14 | EKG ---
[address] [address] Test Date: 2020-11-09 Test Time: 18:36:47 Pat Name: SHIVAM CASTILLO Department: Room: Gender: M Camera Maker: MARLYN : 1940 Requested By: QASIM BROWER Order Number: [id number] Reading MD: Measurements Intervals [place] Rate: 87 P: VT: QRS: -43 QRSD: 78 T: 56 QT: 376 QTc: 459 Interpretive Statements IRREGULAR RHYTHM, NO P-WAVE FOUND ABNORMAL LEFT AXIS DEVIATION LOW LIMB LEAD VOLTAGE LEFT ANTERIOR FASCICULAR BLOCK ABNORMAL ECG RI6.02 No previous ECG available for comparison
[2020-11-10] MEDS: IPRATRPIUM/ALBUTEROL 0.5/2.5MG 3 ML NEBU. NEB SCH ×2 (04:58→09:09)
[2020-11-10 06:11] VITALS: BP 109/71
[2020-11-10 06:56] LABS: BASO % 0 % (0-3); EOS % 0 % (0-3); HEMATOCRIT 39.9 % (39.0-53.0); HEMOGLOBIN 13.3 g/dL (13.0-17.5); LYMPH # 0.3 x10^3/uL (1.0-4.8); LYMPH % 3 % (24-48); MEAN CORPUSCULAR HEMOGLOBIN 29 pg (25-35); MEAN CORPUSCULAR HGB CONC 33 g/dL (31-37); MEAN CORPUSCULAR VOLUME 86 fL (79-100); MONO # 0.1 x10^3/uL (0.0-1.1); MONO % 1 % (0-9); NEUT # 9.5 x10^3uL (1.8-7.7); NEUT % 96 % (31-73); PLATELET COUNT 202 x10^3/uL (140-400); RED BLOOD COUNT 4.63 x10^6/uL (4.30-5.70); RED CELL DISTRIBUTION WIDTH 16.4 % (11.5-14.5); WHITE BLOOD COUNT 9.9 x10^3/uL (4.0-11.0)
[2020-11-10 07:14] LABS: CALCIUM 8.5 mg/dL (8.5-10.1); CREATININE 1.2 mg/dL (0.7-1.3); GFR 58.1; POTASSIUM 3.5 mmol/L (3.5-5.1)
[2020-11-10] MEDS ORDERED: methylPREDNISolone SOD SUCC PF 125 MG/2 ML VIAL. IV SCH (09:00)
[2020-11-10] MEDS: AZITHROMYCIN 250 MG TABLET. PO SCH (09:26)
[2020-11-10] MEDS: FUROSEMIDE 40 MG/4 ML VIAL IVP SCH (09:26)
[2020-11-10] MEDS: LACTOBACILLUS RHAMNOSUS GG 1 CAPSULE. PO SCH ×2 (09:26→22:38)
[2020-11-10 11:13] VITALS: BP 115/79
[2020-11-10] MEDS: IPRATROPIUM/ALBUTEROL 20/100mcg/INH INHALER. INH SCH ×3 (12:00→22:37)
[2020-11-10] MEDS ORDERED: NITROGLYCERIN SUBLINGUAL 0.4 MG BOTTLE OF 25. SL PRN (16:00)
[2020-11-10] MEDS ORDERED: ACETAMINOPHEN 500 MG TABLET PO PRN (16:00)
[2020-11-10] MEDS ORDERED: ZOLPIDEM 5 MG TABLET. PO PRN (16:00)
[2020-11-10 16:38] VITALS: BP 95/65
[2020-11-10] MEDS ORDERED: NON FORMULARY ITEM (Rivaroxaban (Xarelto) 20 MG) PO SCH (17:00)
[2020-11-10] MEDS: RIVAROXABAN 10 MG TABLET. PO SCH (17:05)
[2020-11-10] MEDS: METOPROLOL SUCC 24HR ER 50 MG TAB.ER.24H. PO SCH (17:05)
--- NOTE | 2020-11-10 19:03 | HP ---
ADMIT DATE: 11/09/2020 HISTORY OF PRESENT ILLNESS: The patient is an 80-year-old male patient who came to the Emergency Room complaining of shortness of breath, fever, cough, weakness, fast heart rate. He was evaluated in the Emergency Room and was extensively investigated. He was found to have a leukocytosis with a white cell count 13,900. His chemistry was mostly unremarkable with elevated beta natriuretic peptide of 1631. His first set of cardiac enzyme was negative. Troponin of 0.017. He has been vaccinated and received 2 Moderna vaccines. He was treated with ceftriaxone and continued all his medications as well as the albuterol, Atrovent and Zithromax and was admitted with a COPD exacerbation as well as [id number] congestive heart failure. PAST MEDICAL HISTORY: Significant for coronary artery disease, status post stent deployment x 2. He is known to have COPD, atrial fibrillation, morbid obesity, obstructive sleep apnea on BiPAP machine at nighttime as well as hyperlipidemia and hypertension. He was admitted with a complicated urinary tract infection. PAST SURGICAL HISTORY: Significant for bilateral cataract extraction and umbilical hernia repair. He has also had tonsillectomy, uvulopalatoplasty for obstructive sleep apnea. ALLERGIES: He has no known drug allergies. FAMILY HISTORY: Noncontributory. SOCIAL HISTORY: He is and lives alone. 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 He continued to smoke and apparently has started smoking when he was only 13 years old. He does not drink alcohol or recreational drugs. REVIEW OF SYSTEMS: As per history of present illness. PHYSICAL EXAMINATION: GENERAL: On arrival to the Emergency Room, he was somewhat pale, not jaundiced, cyanosis or thyromegaly. No jugular venous distention. No limb edema. VITAL SIGNS: His heart rate was 92, blood pressure was 114/76, temperature was 100.1, respiratory rate was 16 and oxygen saturation was 93%. HEAD, EYES, EARS, NOSE, AND THROAT: Normocephalic, atraumatic. NECK: Supple. HEART: Showed normal first and second heart sounds. No gallop, rub or murmur. CHEST: Showed central trachea, equal bilateral chest expansion, air entry, vesicular breath sounds with bibasilar crepitation, a few scattered rhonchi. ABDOMEN: Distended, soft, nontender. NEUROLOGIC: He was awake, alert, responding appropriately. He is very hard of hearing, unfortunately did not bring his hearing aids. Otherwise, he moves all extremities without difficulty. While in the Emergency Room, he has had lab work done, which showed a white cell count of 13,900, hemoglobin 13.9, hematocrit 42, MCV 87 and platelet count 226,000. His chemistry showed a serum sodium 142, potassium 4.3, chloride 105, bicarbonate 30, anion gap of 7, BUN 15, creatinine 1.2. Estimated GFR was 58 mL per minute. His glucose 123, calcium was 8.4, magnesium 2. Total bilirubin, AST, ALT, alkaline phosphatase were normal. His CK was 36. C-reactive protein was 8.7. Beta natriuretic peptide was 1631. Total protein was 6.2, albumin was 3.3, and lipase was 181. His first set of cardiac enzyme was less than 0.017. The patient was admitted with chronic obstructive pulmonary disease exacerbation, [id number] congestive heart failure. He was started on IV antibiotic, ceftriaxone as well as Zithromax. We will continue all his medications. Continue with steroids and inhalers and monitor his response closely. PHILIPPE DR: Naya TID: [id number]
[2020-11-10 20:06] VITALS: BP 101/69
[2020-11-10] MEDS: SUPER BETA PROSTATE PO SCH (21:00)
[2020-11-10] MEDS: diphenhydrAMINE 50 MG/ML VIAL IVP SCH (22:37)
[2020-11-10] MEDS: methylPREDNISolone SOD SUCC PF 40 MG/ML VIAL. IV SCH (22:39)
[2020-11-10] MEDS: ATORVASTATIN CALCIUM 20 MG TABLET PO SCH (22:39)
[2020-11-10 23:49] VITALS: BP 100/62
--- NOTE | 2020-11-11 05:49 | NUR ---
Pt is very talkative. He states he left his dentures and hearing aid(s) at home but does not want anyone to go into his house to bring them to him because his house "needs a good cleaning" and he "makes a bigger mess during the weeks than is cleaned up on the weekends." Discussed with pt ideas about, or benefits of, having a family member help him get caught up or possibly home health or other person to help him with his day to day habits and chores. Pt seems disinterested. Will continue to monitor.
[2020-11-11] MEDS: methylPREDNISolone SOD SUCC PF 40 MG/ML VIAL. IV SCH ×3 (06:03→22:10)
[2020-11-11 06:37] VITALS: BP 104/69
[2020-11-11 07:36] LABS: HEMATOCRIT 41.3 % (39.0-53.0); HEMOGLOBIN 13.4 g/dL (13.0-17.5); RED BLOOD COUNT 4.7 x10^6/uL (4.30-5.70); RED CELL DISTRIBUTION WIDTH 16.4 % (11.5-14.5); WHITE BLOOD COUNT 23.3 x10^3/uL (4.0-11.0)
[2020-11-11 07:52] LABS: ALBUMIN 2.9 g/dL (3.4-5.0); ALBUMIN/GLOBULIN RATIO 0.9 (1.0-1.7); CALCIUM 8.5 mg/dL (8.5-10.1); CREATININE 1.3 mg/dL (0.7-1.3); POTASSIUM 4.1 mmol/L (3.5-5.1); TOTAL BILIRUBIN 0.4 mg/dL (0.2-1.0); TOTAL PROTEIN 6.3 g/dL (6.4-8.2)
[2020-11-11] MEDS: IPRATROPIUM/ALBUTEROL 20/100mcg/INH INHALER. INH SCH ×4 (08:00→22:11)
[2020-11-11] MEDS ORDERED: AZITHROMYCIN 250 MG TABLET. PO SCH (09:00)
[2020-11-11] MEDS: AZITHROMYCIN 250 MG TABLET. PO SCH (09:10)
[2020-11-11] MEDS: METOPROLOL SUCC 24HR ER 50 MG TAB.ER.24H. PO SCH (09:10)
[2020-11-11] MEDS: ASPIRIN CHEWABLE 81 MG TABLET. PO SCH (09:10)
[2020-11-11] MEDS: LACTOBACILLUS RHAMNOSUS GG 1 CAPSULE. PO SCH ×2 (09:10→22:10)
[2020-11-11] MEDS: NON FORMULARY ITEM (Potassium Gluconate 99 MG) PO SCH (09:11)
[2020-11-11] MEDS: SUPER BETA PROSTATE PO SCH ×2 (09:11→21:00)
[2020-11-11] MEDS: FUROSEMIDE 40 MG TABLET PO SCH (09:11)
[2020-11-11 10:54] VITALS: BP 114/75
--- NOTE | 2020-11-11 13:28 | PN ---
DATE: 11/10/2020 SUBJECTIVE: The patient is resting in the edge of the bed comfortably, in no apparent distress. He denied any further episode of dizziness, denied any chills or rigors. continued to have cough, which is mostly with a whitish sputum. OBJECTIVE: GENERAL: When I examined him this afternoon, he looked well and was clearly in no apparent respiratory distress. There is no pallor, jaundice, cyanosis or thyromegaly. No jugular venous distention. No limb edema. VITAL SIGNS: His heart rate was 124, blood pressure was 115/79, temperature was 98.2, respiratory rate was 20 and oxygen saturation was 96% on 2 liters of oxygen. HEAD, EYES, EARS, NOSE AND THROAT: Normocephalic, atraumatic. NECK: Supple. HEART: Showed normal first heart sound, no gallop or murmur. CHEST: Shows central trachea, ____ bilateral basal crepitation. I could not appreciate any rhonchi. ABDOMEN: Distended, soft, nontender. NEUROLOGIC: He was grossly intact. He is very hard of hearing, but otherwise moves all extremities without difficulty. His intake and output are incompletely recorded. LABORATORY DATA: His lab work this morning showed a white cell count 9900, hemoglobin 13, hematocrit 39, MCV 86 and platelet count of 202,000. His chemistry showed that his serum sodium 141, potassium 3.5, chloride 103, bicarbonate 26, anion gap of 12, BUN 17, creatinine 1.2. Estimated GFR was 58 mL per minute. His glucose 161, calcium was 8.5. Has 3 sets of cardiac enzymes that ruled out myocardial infarction. PLAN: My plan is to continue with all his current medication, continue with IV antibiotic and continue with Solu-Medrol, ceftriaxone as well as Zithromax. MARTINA/SHANTHI/RUBEN DR: MARTINA/tiffany TID: [id number]
[2020-11-11] MEDS: CITALOPRAM 20 MG TABLET. PO SCH (14:23)
[2020-11-11 15:05] VITALS: BP 103/71
[2020-11-11] MEDS: RIVAROXABAN 10 MG TABLET. PO SCH (17:00)
[2020-11-11 19:57] VITALS: BP 103/63
--- NOTE | 2020-11-11 21:00 | PDOC2 ---
CONSULT DOS: DATE: 11/11/20 TIME: 20:49 Reason for Consult: SOB, atrial fibrillation. Referring Physician: Dr. Warner Chief Complaint SOB Source: Chart review, Patient Problem List Problems Medical Problems: (1) COPD (chronic obstructive pulmonary disease) Status: Acute History of Present Illness The patient is an 80year old male who was admitted through the ER for episodes of increasing SOB. He denied typical chest pain. His initial CXR showed no acute findings. He has been treated with pulmonary medications and Ab. Troponin has been negative x 2. BNP is elevated at 1631. He has a history of coronary stents, atrial fib and COPD. He is feeling better today. Cardiovascular: AFIB, CAD, CHF, HTN, hyperipidemia Pulmonary: COPD Past Surgical History: Cataract Removal, Hernia Repair, Tonsillectomy Family History: Hypertension Smoke: <1 pack per day ALCOHOL: none Current Medications Current Medications Lactated Ringer's 1,000 ml @ 100 mls/hr Q10H IV Last administered on 11/09/20at 18:41; Start 11/09/20 at 17:45; Stop 11/10/20 at 03:44; Status DC Ceftriaxone Sodium 1 gm/ Sodium Chloride 50 ml @ 100 mls/hr 1X ONCE IV Last administered on 11/09/20at 18:42; Start 11/09/20 at 18:00; Stop 11/09/20 at 18:29; Status DC Sodium Chloride 50 ml @ As Directed STK-MED ONCE .ROUTE ; Start 11/09/20 at 18:15; Stop 11/09/20 at 18:15; Status DC Ceftriaxone Sodium (Rocephin) 1 gm STK-MED ONCE .ROUTE ; Start 11/09/20 at 18:15; Stop 11/09/20 at 18:15; Status DC Albuterol/ Ipratropium (Duoneb) 3 ml 1X ONCE NEB Last administered on 11/09/20at 19:18; Start 11/09/20 at 19:15; Stop 11/09/20 at 19:16; Status DC Methylprednisolone Sodium Succinate (SOLU-Medrol 125MG VIAL) 125 mg 1X ONCE IV Last administered on 11/09/20at 19:13; Start 11/09/20 at 19:15; Stop 11/09/20 at 19:16; Status DC Azithromycin (Zithromax) 500 mg 1X ONCE PO Last administered on 11/09/20at 19:12; Start 11/09/20 at 19:15; Stop 11/09/20 at 19:16; Status DC Furosemide (Lasix) 40 mg 1X ONCE IVP Last administered on 11/09/20at 20:02; St art 11/09/20 at 19:45; Stop 11/09/20 at 19:46; Status DC Ondansetron HCl (Zofran) 4 mg PRN Q4HRS PRN IVP NAUSEA/VOMITING; Start 11/09/20 at 19:45; Stop 11/10/20 at 19:44; Status DC Albuterol/ Ipratropium (Duoneb) 3 ml RTQID NEB Last administered on 11/10/20at 09:09; Start 11/09/20 at 20:00; Stop 11/10/20 at 11:28; Status DC Rivaroxaban (Xarelto) 20 mg DAILYWSUP PO Last administered on 11/11/20at 17:00; Start 11/09/20 at 20:00 Albuterol/ Ipratropium (Duoneb) 3 ml QID NEB ; Start 11/09/20 at 21:00; Stop at 20:04; Status DC Methylprednisolone Sodium Succinate (SOLU-Medrol 125MG VIAL) 125 mg DAILY IV Last administered on 11/10/20at 09:27; Start 11/10/20 at 09:00; Stop 11/10/20 at 16:00; Status DC Ceftriaxone Sodium 1 gm/ Sodium Chloride 50 ml @ 100 mls/hr DAILY IV Last administered on 11/11/20at 09:11; Start 11/10/20 at 09:00 Azithromycin (Zithromax) 250 mg DAILY PO Last administered on 11/11/20at 09:10; Start 11/10/20 at 09:00 Furosemide (Lasix) 40 mg DAILY IVP Last administered on 11/10/20at 09:26; Start 11/09/20 at 20:00; Stop 11/10/20 at 16:00; Status DC Diphenhydramine HCl (Benadryl) 50 mg HS IVP Last administered on 11/10/20at 22:37; Start 11/09/20 at 21:00 Ondansetron HCl (Zofran) 8 mg 1X ONCE IVP Last administered on 11/09/20at 19:59; Start 11/09/20 at 20:00; Stop 11/09/20 at 20:05; Status DC Lactobacillus Rhamnosus (Culturelle) 1 cap BID PO Last administered on 11/11/20at 09:10; Start 11/10/20 at 09:00 Albuterol/ Ipratropium (Combivent Respimat 20-100 Mcg) 1 puff RTQID INH Last administered on 11/11/20at 16:00; Start 11/10/20 at 12:00 Acetaminophen (Tylenol) 1,000 mg PRN Q6HRS PRN PO PAIN; Start 11/10/20 at 16:00 Aspirin (Aspirin Chewable) 81 mg DAILY PO Last administered on 11/11/20at 09:10; Start 11/11/20 at 09:00 Diltiazem HCl (Diltiazem 24hr Cd) 300 mg DAILY PO Last administered on 11/11/20 09:10; Start 11/10/20 at 16:30 Furosemide (Lasix) 40 mg DAILY PO Last administered on 11/11/20at 09:11; Start 11/11/20 at 09:00 Metoprolol Succinate (Toprol Xl) 50 mg DAILY PO Last administered on 11/11/20 09:10; Start 11/10/20 at 16:30 Nitroglycerin (Nitrostat) 0.4 mg PRN Q5MIN PRN SL CHEST PAIN; Start 11/10/20 at 16:00 Zolpidem Tartrate (Ambien) 5 mg PRN QHS PRN PO INSOMNIA Last administered on 11/10/20at 22:39; Start 11/10/20 at 16:00 Atorvastatin Calcium (Lipitor) 40 mg QHS PO Last administered on 11/10/20at 22:39; Start 11/10/20 at 21:00 Citalopram Hydrobromide (CeleXA) 40 mg DAILY PO Last administered on 11/11/20at 14:23; Start 11/11/20 at 14:30 Non-Formulary Medication (Potassium Gluconate ) 99 mg DAILY PO Last administered on 11/11/20at 09:11; Start 11/11/20 at 09:00 Non-Formulary Medication (Rivaroxaban (Xarelto)) 20 mg DAILYBFRSUP PO ; Start 11/10/20 at 17:00; Status UNV Non-Formulary Medication ([Super Beta Prostate] ) 1 tab BID PO Last administered on 11/11/20at 09:11; Start 11/10/20 at 21:00 Ceftriaxone Sodium 1 gm/ Sodium Chloride 50 ml @ 100 mls/hr Q24H IV ; Start 11/10/20 at 16:00; Status UNV Methylprednisolone Sodium Succinate (SOLU-Medrol 40MG VIAL) 40 mg Q8HRS IV Last administered on 11/11/20at 14:23; Start 11/10/20 at 22:00 Azithromycin (Zithromax) 250 mg DAILY PO ; Start 11/11/20 at 09:00; Status UNV Active Scripts Active Reported Zolpidem Tartrate 5 Mg Tablet 5 Mg PO PRN QHS PRN LAST DOSE GIVEN: DATE: TIME: NEXT DOSE DUE: DATE: TIME: Potassium Gluconate 99 Mg Tablet 99 Mg PO DAILY LAST DOSE GIVEN: DATE: TIME: NEXT DOSE DUE: DATE: TIME: Aspirin 81 Mg Tab.chew 81 Mg PO DAILY LAST DOSE GIVEN: DATE: TIME: NEXT DOSE DUE: DATE: TIME: Acetaminophen 500 Mg Tablet 1,000 Mg PO PRN Q6HRS PRN LAST DOSE GIVEN: DATE: TIME: NEXT DOSE DUE: DATE: TIME: [Super Beta Prostate] 1 Tab PO BID LAST DOSE GIVEN: DATE: TIME: NEXT DOSE DUE: DATE: TIME: NITROGLYCERIN SubLingual (Nitroglycerin) 0.4 Mg Tab.subl 0.4 Mg SL PRN Q5MIN PRN LAST DOSE GIVEN: DATE: TIME: NEXT DOSE DUE: DATE: TIME: Diltiazem 24HR Cd (Diltiazem Hcl) 300 Mg Cap.er.24h 300 Mg PO DAILY LAST DOSE GIVEN: DATE: TIME: NEXT DOSE DUE: DATE: TIME: Metoprolol Succinate ( Xl ) (Metoprolol Succinate) 50 Mg Tab.er.24h 50 Mg PO DAILY LAST DOSE GIVEN: DATE: TIME: NEXT DOSE DUE: DATE: TIME: Citalopram Hbr (Citalopram Hydrobromide) 40 Mg Tablet 40 Mg PO DAILY LAST DOSE GIVEN: DATE: TIME: NEXT DOSE DUE: DATE: TIME: Atorvastatin Calcium 40 Mg Tablet 40 Mg PO QHS LAST DOSE GIVEN: DATE: TIME: NEXT DOSE DUE: DATE: TIME: Furosemide 40 Mg Tablet 40 Mg PO DAILY LAST DOSE GIVEN: DATE: TIME: NEXT DOSE DUE: DATE: TIME: Xarelto (Rivaroxaban) 20 Mg Tablet 20 Mg PO DAILYBFRSUP LAST DOSE GIVEN: DATE: TIME: NEXT DOSE DUE: DATE: TIME: Allergies: Coded Allergies: No Known Drug Allergies (Unverified , 11/12/19) General: YES: Fatigue Respiratory: YES: Shortness of breath, SOB with excertion General: mild distress Lungs: Other (decreased breath sounds) Heart: Other (irreg.irreg.) Abdomen: Normal bowel sounds VITALS Vital Signs Date Time Temp Pulse Resp B/P (MAP) Pulse Ox O2 Delivery O2 Flow Rate FiO2 11/11/20 19:57 98.0 90 20 103/63 (76) 92 Nasal Cannula 2.0 Labs Laboratory Tests Test 11/09/20 21:20 11/10/20 03:10 11/10/20 06:28 11/10/20 10:45 Troponin I Quantitative < 0.017 ng/mL (0-0.055) < 0.017 ng/mL (0-0.055) White Blood Count 9.9 x10^3/uL (4.0-11.0) Red Blood Count 4.63 x10^6/uL (4.30-5.70) Hemoglobin 13.3 g/dL (13.0-17.5) Hematocrit 39.9 % (39.0-53.0) Mean Corpuscular Volume 86 fL (79-100) Mean Corpuscular Hemoglobin 29 pg (25-35) Mean Corpuscular Hemoglobin Concent 33 g/dL (31-37) Red Cell Distribution Width 16.4 % (11.5-14.5) Platelet Count 202 x10^3/uL (140-400) Neutrophils (%) (Auto) 96 % (31-73) Lymphocytes (%) (Auto) 3 % (24-48) Monocytes (%) (Auto) 1 % (0-9) Eosinophils (%) (Auto) 0 % (0-3) Basophils (%) (Auto) 0 % (0-3) Neutrophils # (Auto) 9.5 x10^3uL (1.8-7.7) Lymphocytes # (Auto) 0.3 x10^3/uL (1.0-4.8) Monocytes # (Auto) 0.1 x10^3/uL (0.0-1.1) Eosinophils # (Auto) 0.0 x10^3/uL (0.0-0.7) Basophils # (Auto) 0.0 x10^3/uL (0.0-0.2) Sodium Level 141 mmol/L (136-145) Potassium Level 3.5 mmol/L (3.5-5.1) Chloride Level 103 mmol/L (98-107) Carbon Dioxide Level 26 mmol/L (21-32) Anion Gap 12 (6-14) Blood Urea Nitrogen 17 mg/dL (8-26) Creatinine 1.2 mg/dL (0.7-1.3) Estimated GFR (Cockcroft-Gault) 58.1 Glucose Level 151 mg/dL (70-99) Calcium Level 8.5 mg/dL (8.5-10.1) Coronavirus (COVID-19)(PCR) Negative (NEGATIVE) SARS-CoV-2 Antigen (Rapid) Negative (NEGATIVE) Test 11/11/20 07:15 White Blood Count 23.3 x10^3/uL (4.0-11.0) Red Blood Count 4.70 x10^6/uL (4.30-5.70) Hemoglobin 13.4 g/dL (13.0-17.5) Hematocrit 41.3 % (39.0-53.0) Mean Corpuscular Volume 88 fL (79-100) Mean Corpuscular Hemoglobin 29 pg (25-35) Mean Corpuscular Hemoglobin Concent 32 g/dL (31-37) Red Cell Distribution Width 16.4 % (11.5-14.5) Platelet Count 216 x10^3/uL (140-400) Sodium Level 141 mmol/L (136-145) Potassium Level 4.1 mmol/L (3.5-5.1) Chloride Level 103 mmol/L (98-107) Carbon Dioxide Level 29 mmol/L (21-32) Anion Gap 9 (6-14) Blood Urea Nitrogen 22 mg/dL (8-26) Creatinine 1.3 mg/dL (0.7-1.3) Estimated GFR (Cockcroft-Gault) 53.0 BUN/Creatinine Ratio 17 (6-20) Glucose Level 141 mg/dL (70-99) Calcium Level 8.5 mg/dL (8.5-10.1) Total Bilirubin 0.4 mg/dL (0.2-1.0) Aspartate Amino Transf (AST/SGOT) 18 U/L (15-37) Alanine Aminotransferase (ALT/SGPT) 16 U/L (16-63) Alkaline Phosphatase 84 U/L (46-116) Total Protein 6.3 g/dL (6.4-8.2) Albumin 2.9 g/dL (3.4-5.0) Albumin/Globulin Ratio 0.9 (1.0-1.7) Images CXR. No acute changes Assessment/Plan 1. Exacerbation of COPD. Clinically improving on present medications. 2. CHF. Also improved. Continue treatment. Outpt. ECHO. 3. CAD. Nochest pain. Troponin normal. Continue medications. Outpt follow up. 4. HTN. Continue medications. 5. Rate controlled atrial fib. Continue present treatment. BRANDON SANCHES MD Nov 11, 2020 20:59
[2020-11-11] MEDS: diphenhydrAMINE 50 MG/ML VIAL IVP SCH (22:10)
[2020-11-11] MEDS: ATORVASTATIN CALCIUM 20 MG TABLET PO SCH (22:11)
[2020-11-11 22:56] VITALS: BP 105/74
--- NOTE | 2020-11-12 02:10 | PN ---
DATE: 11/11/2020 PROGRESS NOTE SUBJECTIVE: The patient is resting, sitting on the edge of the bed comfortably, in no apparent distress. He denied any further episodes of dizziness, denied any chills or rigors. Denied any shortness of breath. He apparently slept very well overnight. PHYSICAL EXAMINATION: GENERAL: When I examined him, he was resting flat, comfortably in bed, in no apparent respiratory distress. He was pale, but no jaundice, cyanosis, no lymphadenopathy, no thyromegaly, no jugular venous distention. No limb edema. VITAL SIGNS: His heart rate was 92, blood pressure is 103/71, temperature was 97.5, respiratory rate 20, and oxygen saturation was 93%. HEAD, EYES, EARS, NOSE, EYES, EARS, NOSE, AND THROAT: Normocephalic, atraumatic. NECK: Supple. HEART: Showed normal first and second heart sounds. No gallop, rub, or murmur. CHEST: Clear to auscultation, no crepitation, or rhonchi. He does have bilateral basal crepitation posteriorly. I could not appreciate any rhonchi. ABDOMEN: Distended, soft, and nontender. NEUROLOGIC: He was awake, alert, responding appropriately. All cranial nerves intact. He moves extremities without difficulty. His intake over the last 24 hours was 450. No output was recorded. LABORATORY DATA: This morning showed a white cell count 23,000, hemoglobin 13, hematocrit 41, MCV 88 and platelet count 216. His chemistry showed a serum sodium 141, potassium 4.1, chloride 103, bicarbonate 29, anion gap of 9, BUN 22, creatinine 1.3. Estimated GFR was 53 mL per minute. His glucose 141, calcium was 8.5. Total bilirubin, AST, ALT, and alkaline phosphatase were normal. Total protein was 6.3, albumin was 2.9. ASSESSMENT: 1. Chronic obstructive pulmonary disease exacerbation. 2. Acute on chronic congestive heart failure, clinically bilateral crepitation. Heart failure versus pneumonia. Other medical problems include obstructive sleep apnea, atrial fibrillation, rate controlled. He has also hyperlipidemia and hypertension. PLAN: My plan is to continue with IV antibiotic. Continue with steroids. Continue with all other medication. I will evaluate him again tomorrow and if he continues to improve, we might be able to discharge him home to continue on a tapering course of steroids and oral antibiotic. RODGER DR: Naya TID: [id number]
[2020-11-12] MEDS: methylPREDNISolone SOD SUCC PF 40 MG/ML VIAL. IV SCH (05:55)
[2020-11-12 06:27] VITALS: BP 120/83
[2020-11-12 07:10] LABS: HEMATOCRIT 41.6 % (39.0-53.0); HEMOGLOBIN 13.6 g/dL (13.0-17.5); RED BLOOD COUNT 4.77 x10^6/uL (4.30-5.70); RED CELL DISTRIBUTION WIDTH 16.4 % (11.5-14.5); WHITE BLOOD COUNT 19.5 x10^3/uL (4.0-11.0)
[2020-11-12 07:25] LABS: CALCIUM 8.4 mg/dL (8.5-10.1); CREATININE 1.2 mg/dL (0.7-1.3); GFR 58.1
[2020-11-12] MEDS: NON FORMULARY ITEM (Potassium Gluconate 99 MG) PO SCH (07:56)
[2020-11-12] MEDS: FUROSEMIDE 40 MG TABLET PO SCH (07:57)
[2020-11-12] MEDS: LACTOBACILLUS RHAMNOSUS GG 1 CAPSULE. PO SCH (07:57)
[2020-11-12] MEDS: CITALOPRAM 20 MG TABLET. PO SCH (07:57)
[2020-11-12] MEDS: AZITHROMYCIN 250 MG TABLET. PO SCH (07:57)
[2020-11-12] MEDS: METOPROLOL SUCC 24HR ER 50 MG TAB.ER.24H. PO SCH (07:57)
[2020-11-12] MEDS: ASPIRIN CHEWABLE 81 MG TABLET. PO SCH (07:57)
[2020-11-12] MEDS: SUPER BETA PROSTATE PO SCH (07:58)
[2020-11-12] MEDS: IPRATROPIUM/ALBUTEROL 20/100mcg/INH INHALER. INH SCH ×2 (07:58→12:00)
[2020-11-12 11:21] VITALS: BP 116/78
--- NOTE | 2020-11-12 13:50 | NUR ---
Discharge Note: SHIVAM CASTILLO Discharge instructions and discharge home medications reviewed with Patient and a copy given. All questions have been answered and understanding verbalized. The following instructions and handouts were given: Discontinued lines and drains: Peripheral IV intact. Patient discharged to Home or Self Care with self via Wheelchair
--- NOTE | 2020-11-12 20:10 | DS ---
DATE OF DISCHARGE: 11/12/2020 HISTORY OF PRESENT ILLNESS: The patient is an 80-year-old male patient who was admitted through the Emergency Department with a complaint of shortness of breath, fever, cough, weakness, fast heart rate. He was evaluated in the Emergency Room and was found to have leukocytosis with a white cell count of 13,900. His chemistry was mostly unremarkable. His first set of cardiac enzymes were negative. He had been vaccinated and received 2 Moderna vaccines. He was treated with ceftriaxone. Continued all his medications as well as albuterol, Atrovent, Zithromax; was admitted with COPD exacerbation as well as acute on chronic congestive heart failure. He did actually very well. He remained afebrile throughout his stay. His white cell count actually was increased probably due to steroids. His heart rate had remained stable and has been in the 80s. He is feeling much improved. He has had no more cough or fever and therefore, a decision was made to discharge him home to continue with a tapering course of steroids, oral antibiotic and his inhaler together with all other medications. PHYSICAL EXAMINATION: GENERAL: When I saw him this afternoon, he looked well and was clearly in no apparent respiratory distress. There was no pallor, jaundice, cyanosis or thyromegaly. No jugular venous distention. No limb edema. VITAL SIGNS: His heart rate was 75, blood pressure is 116/78, temperature was 97.8, respiratory rate was 18 and oxygen saturation was 95% on 2 liters of oxygen. HEAD, EYES, EARS, NOSE, AND THROAT: Normocephalic, atraumatic. NECK: Supple. HEART: Normal first and second heart sounds, no gallop or murmur. CHEST: Clear to auscultation. No crepitation or rhonchi. ABDOMEN: Distended, soft, nontender. NEUROLOGIC: He was grossly intact. LABORATORY DATA: This morning showed a white cell count of 19,500, hemoglobin 13, hematocrit 41, MCV 87 and platelet count 227,000. His chemistry showed a serum sodium 140, potassium 4, chloride 104, bicarbonate 30, anion gap of 6, BUN 31, creatinine 1.2. Estimated GFR was 58 mL per minute. His glucose 144, calcium was 8.4. DISCHARGE MEDICATIONS: He was discharged home to continue on following medications: Tylenol 1000 mg every 6 hours as needed, aspirin 81 mg once a day, atorvastatin 40 mg at bedtime, citalopram hydrobromide 40 mg daily, diltiazem CD 300 mg once a day, furosemide 40 mg daily, metoprolol succinate 50 mg daily, nitroglycerin 0.4 mg sublingually every 5 minutes x 3, potassium gluconate 99 mg daily, rivaroxaban 20 mg once a day, Ambien 5 mg at bedtime and Super Beta Prostate one tablet p.o. b.i.d. He was also discharged on Combivent Respimat 1 puff 4 times a day; prednisone 40 mg once a day for 3 days, 30 mg once a day for 3 days, 20 mg once a day for 3 days and finally 10 mg once a day for 3 days. He was also discharged on cefdinir 300 mg twice a day for 7 days and Zithromax 250 mg once a day for 2 days. FINAL DISCHARGE DIAGNOSES: 1. Chronic obstructive pulmonary disease exacerbation, resolved. 2. Acute on chronic congestive heart failure, clinically much improved. 3. Questionable community-acquired pneumonia for which he responded to oral cefdinir and Zithromax. 4. Morbid obesity and obstructive sleep apnea. 5. Atrial fibrillation, rate controlled, well anticoagulated. 6. Hyperlipidemia. 7. Hypertension. "DICTATION ENDS HERE." MARTINA/EKT DR: MARTINA/tiffany TID: [id number]
== END 2020-11-12 13:52 | disposition home or self-care (01) | DRG 871 ==
LOC: ER 17:31 → 1 SOUTH 19:37
PROVIDERS: ADMIT Internal Medicine; ATTEND Internal Medicine
DX: A41.9 Sepsis, unspecified organism (principal); J15.9 Unspecified bacterial pneumonia; J15.6 Pneumonia due to other Gram-negative bacteria; J44.1 Chronic obstructive pulmonary disease with (acute) exacerbation; D72.829 Elevated white blood cell count, unspecified; E66.01 Morbid (severe) obesity due to excess calories; E78.5 Hyperlipidemia, unspecified; F17.200 Nicotine dependence, unspecified, uncomplicated; G47.33 Obstructive sleep apnea (adult) (pediatric); I11.0 Hypertensive heart disease with heart failure; I25.10 Atherosclerotic heart disease of native coronary artery without angina pectoris; I48.91 Unspecified atrial fibrillation; I50.9 Heart failure, unspecified; N40.0 Benign prostatic hyperplasia without lower urinary tract symptoms; F32.9 Major depressive disorder, single episode, unspecified; Z60.2 Problems related to living alone; T38.0X5A Adverse effect of glucocorticoids and synthetic analogues, initial encounter; Z20.822 Contact with and (suspected) exposure to COVID-19; Z82.49 Family history of ischemic heart disease and other diseases of the circulatory system; Z95.5 Presence of coronary angioplasty implant and graft; Z98.41 Cataract extraction status, right eye; Z98.42 Cataract extraction status, left eye; Z99.81 Dependence on supplemental oxygen; Z87.440 Personal history of urinary (tract) infections; Y92.89 Other specified places as the place of occurrence of the external cause; Z68.36 Body mass index [BMI] 36.0-36.9, adult
CPT/HCPCS: 36415; 71045; 80048; 80053; 80076; 82150; 82550; 83690; 83735; 83880; 84443; 84484; 85025; 85027; 86140; 87040; 87426; 93005; 94640; 94760; 96365; 96375; J0696; J1200; J1940; J2405; J2920; J2930; J7120; U0003; 99285-25

== ENCOUNTER 2020-11-25 18:43 | Inpatient (IN) | payer MEDICARE, OTHER ==
[~2020-11-25] VITALS: Ht 180.3 cm; Wt 123.0 kg
[~2020-11-25 18:43] MED LIST changes: +ACET500T68 PO; +ASPI-630 PO; -DOXY100C2 PO; +DOXY100C3 PO; +NITR0.4T22 SL; +POTA99TA3 PO; +Super Beta Prostate PO; +ZOLP5TAB5 PO
--- NOTE | 2020-11-25 19:14 | PHYS DOC ---
Past History Past Medical History: A-Fib, CAD, Depression, Hypertension Additional Past Medical Histor: BPH (KVNG BARRIOS DO) Past Surgical History: No Surgical History Additional Past Surgical Histo: SLEEP APNEA SURGERY; CARDIAC STENTS (KVNG BARRIOS DO) Smoking: Less than 1pk/day Alcohol Use: Occasionally (KVNG BARRIOS DO) General Adult EDM: Chief Complaint: DYSPNEA/RESPIRATOY DISTRESS HPI: HPI: 80-year-old male presents with shortness of breath and rapid heart rate. He has been feeling ill all day. He thought he was a short of breath so he has been using his CPAP at home most of the day. He was not any better so he decided come the emergency room. On arrival his heart rate is in the 130s. The patient has known A. fib. He is on metoprolol, Cardizem, and Xarelto for this. He is not exactly sure when he takes his doses for these medications. He takes medicines in the morning and at night for different things. He denies chest pain or fever. He was seen in this hospital recently and has gained several pounds since discharge. (KVNG BARRIOS DO) Review of Systems: Review of Systems: Constitutional: Denies fever or chills Eyes: Denies change in visual acuity HENT: Denies nasal congestion or sore throat Respiratory: shortness of breath Cardiovascular: Rapid heart rate GI: Denies abdominal pain, nausea, vomiting, bloody stools or diarrhea : Denies dysuria Musculoskeletal: Denies back pain or joint pain Integument: Denies rash Neurologic: Denies headache, focal weakness or sensory changes Endocrine: Denies polyuria or polydipsia Lymphatic: Denies swollen glands Psychiatric: Denies depression or anxiety (KVNG BARRIOS DO) Current Medications: Current Meds: Current Medications Medications (Trade) Dose Ordered Sig/Jacque Start Time Stop Time Status Last Admin Dose Admin Diltiazem HCl (Cardizem Iv Push) 20 mg 1X ONCE 11/25/20 19:15 11/25/20 19:16 UNV (KVNG BARRIOS DO) Allergies: Allergies: Allergies Coded Allergies Type Severity Reaction Last Updated Verified No Known Drug Allergies 11/12/19 No (KVNG BARRIOS DO) Physical Exam: PE: Constitutional: Well developed, well nourished, obese, no acute distress, non- toxic appearance. [] HENT: Normocephalic, atraumatic, bilateral external ears normal, oropharynx moist, no oral exudates, nose normal. [] Eyes: PERRLA, EOMI, conjunctiva normal, no discharge. [] Neck: Normal range of motion, no tenderness, supple, no stridor. [] Cardiovascular: Heart rate 121, irregular rhythm, no murmur [] Lungs & Thorax: Bilateral breath sounds diminished but clear to auscultation [] Abdomen: Bowel sounds normal, soft, no tenderness, no masses, no pulsatile masses. [] Skin: Warm, dry, no erythema, no rash. [] Back: No tenderness, no CVA tenderness. [] Extremities: No tenderness, no cyanosis, no clubbing, ROM intact, no edema. [] Neurologic: Alert and oriented X 3, normal motor function, normal sensory function, no focal deficits noted. [] Psychologic: Affect normal, judgement normal, mood normal. [] (KVNG BARRIOS DO) Current Patient Data: Vital Signs: Vital Signs Date Time Temp Pulse Resp B/P (MAP) Pulse Ox O2 Delivery O2 Flow Rate FiO2 11/25/20 19:03 98.2 132 32 160/93 (115) 97 Room Air (KVNG BARRIOS DO) EKG: EKG: Irregular rhythm, rate 121, leftward axis, no ST elevation or depression, low voltage. [] (KVNG BARRIOS DO) Radiology/Procedures: Radiology/Procedures: [] Impressions: XR CHEST 1V CLINICAL INDICATIONS: Shortness of breath COMPARISON: November 09, 2020. Findings: There is a new finding of bronchitis within the left infrahilar area. No lung consolidation or pleural effusion or pneumothorax is seen. Heart size is prominent but stable. Mediastinum and pulmonary vasculature are stable. IMPRESSION: Acute left infrahilar bronchitis. Electronically signed by: Dannie Helms MD (11/25/2020 8:00 PM) [id number] DICTATED AND SIGNED BY: DANNIE HELMS MD DATE: 11/25/201958 CC: KVNG BARRIOS DO; DENNIS JEREZ MD ~MTH0 0 (KVNG BARRIOS DO) Heart Score: C/O Chest Pain: No Risk Factors: Risk Factors: DM, Current or recent (<one month) smoker, HTN, HLP, family history of CAD, obesity. Risk Scores: Score 0 - 3: 2.5% MACE over next 6 weeks - Discharge Home Score 4 - 6: 20.3% MACE over next 6 weeks - Admit for Clinical Observation Score 7 - 10: 72.7% MACE over next 6 weeks - Early Invasive Strategies (KVNG BARRIOS DO) Course & Med Decision Making: Course & Med Decision Making Pertinent Labs and Imaging studies reviewed. (See chart for details) The patient continues to have an elevated white count but it is improved from 2 weeks ago. His chest x-ray shows bronchitis. His heart rate is a little in atrial fibrillation. I will give you 20 mg of Cardizem IV. I will place him on a Cardizem drip. His BNP is over 3000 which is worse than previous. I will admit him to the hospital for uncontrolled A. fib and CHF. Cardizem drip has minimally improved the patient's heart rate. He is still 120. His blood pressure is good. I have given him 500 of digoxin. Despite needing diuresis I will give him a liter normal saline to see how his heart rate reacts to this. The patient appears comfortable. He has normal oxygen saturation and respiratory rate. [] (KVNG BARRIOS DO) Course & Med Decision Making Patient care handed over to me at checkout pending placement/available bed. While here patient remained awake alert and oriented in no acute distress, does remain A. fib RVR, however heart rate did come down with 2 boluses of diltiazem and a drip. However this did not make a significant difference and patient was fluid resuscitated. Imaging of the chest did show a little pulmonary edema but patient breathing well on his normal 2 L of oxygen. Patient did have a bout a gram and 1/2 drop in hemoglobin over the last couple of weeks and had a positive fecal occult blood. Given some Protonix. Also given antibiotic coverage given abnormal chest x-ray and technically meets sirs/sepsis criteria. Discussed patient with Dr. Warner, who agreed that patient would benefit from GI consultation as well as may be cardiology and recommended transfer to [place]. Discussed all findings with patient who agreed with plan of transfer and admission. (TERRY ALVA MD) Dragon Disclaimer: Dragon Disclaimer: This electronic medical record was generated, in whole or in part, using a voice recognition dictation system. (KVNG BARRIOS DO) Departure Departure: Impression: Primary Impression: GI bleed Additional Impressions: Atrial fibrillation with RVR Elevated brain natriuretic peptide (BNP) level Disposition: 02 SHORT TERM HOSPITAL Admitting Physician: Jorge L Warner (TERRY ALVA MD) Condition: STABLE Referrals: DENNIS JEREZ MD (PCP) KVNG BARRIOS DO Nov 25, 2020 19:14 TERRY ALVA MD Nov 26, 2020 11:50
[2020-11-25] MEDS ORDERED: dilTIAZem 25 MG/5 ML VIAL IVP ONE (19:15)
[2020-11-25 19:48] LABS: BASO % 0 % (0-3); EOS # 0.3 x10^3/uL (0.0-0.7); EOS % 2 % (0-3); HEMATOCRIT 39.2 % (39.0-53.0); HEMOGLOBIN 12.6 g/dL (13.0-17.5); LYMPH % 5 % (24-48); MEAN CORPUSCULAR HEMOGLOBIN 28 pg (25-35); MEAN CORPUSCULAR HGB CONC 32 g/dL (31-37); MEAN CORPUSCULAR VOLUME 87 fL (79-100); MONO # 1.5 x10^3/uL (0.0-1.1); MONO % 8 % (0-9); NEUT # 15.4 x10^3uL (1.8-7.7); NEUT % 84 % (31-73); PLATELET COUNT 159 x10^3/uL (140-400); RED CELL DISTRIBUTION WIDTH 16.5 % (11.5-14.5); WHITE BLOOD COUNT 18.2 x10^3/uL (4.0-11.0)
[2020-11-25 19:52] LABS: CALCIUM 8.2 mg/dL (8.5-10.1); CREATININE 1.3 mg/dL (0.7-1.3); POTASSIUM 3.7 mmol/L (3.5-5.1)
[2020-11-25 19:58] LABS: TOTAL BILIRUBIN 0.3 mg/dL (0.2-1.0); TOTAL PROTEIN 5.9 g/dL (6.4-8.2)
[2020-11-25] MEDS ORDERED: IPRA4AER INH (20:00)
--- NOTE | 2020-11-25 20:03 | RAD ---
XR CHEST 1V CLINICAL INDICATIONS: Shortness of breath COMPARISON: November 09, 2020. Findings: There is a new finding of bronchitis within the left infrahilar area. No lung consolidation or pleural effusion or pneumothorax is seen. Heart size is prominent but stable. Mediastinum and pul monary vasculature are stable. IMPRESSION: Acute left infrahilar bronchitis. Electronically signed by: Armaan Helms MD (11/25/2020 8:00 PM) [id number]
[2020-11-25] MEDS ORDERED: dilTIAZem VIAL 125 MG in IV NORMAL SALINE 100ML 100 ML IV PRN (20:30)
[2020-11-25 20:36] LABS: % BANDS 1 % (0-9); % EOS 2 % (0-5); % LYMPHS 6 % (24-48); % MONOS 2 % (0-10); % SEGS 89 % (35-66); PLT ESTIMATE ADEQUATE (ADEQUATE)
--- NOTE | 2020-11-25 21:24 | EKG ---
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
[2020-11-25] MEDS ORDERED: IV NORMAL SALINE 100ML 100 ML ONE (21:44)
[2020-11-25] MEDS ORDERED: POTASSIUM CHLORIDE 20 MEQ TABLET.ER. PO ONE (22:00)
[2020-11-25] MEDS ORDERED: FUROSEMIDE 40 MG/4 ML VIAL IVP ONE (22:00)
[2020-11-25 23:19] LABS: BILIRUBIN,URINE NEG (NEG); CLARITY,URINE CLEAR; COLOR,URINE YELLOW; GLUCOSE,URINE NEG (NEG); NITRITE,URINE NEG (NEG); UROBILINOGEN,URINE 0.2 mg/dL (0.2 mg/dL)
[2020-11-25 23:20] LABS: BACTERIA,URINE 0 /HPF (0-FEW); RBC,URINE 0 /HPF (0-2); SQUAMOUS EPITHELIAL CELL,UR FEW /LPF
[2020-11-26] MEDS ORDERED: DIGOXIN IV 500 MCG/2 ML AMPUL. IV ONE ×3 (00:30→18:00)
[2020-11-26] MEDS ORDERED: IV NORMAL SALINE 1,000ML 1,000 ML IV ONE (05:15)
[2020-11-26] MEDS ORDERED: METOPROLOL TARTRATE 5 MG/5 ML VIAL. IV ONE ×2 (05:30→06:30)
[2020-11-26] MEDS ORDERED: ONDANSETRON PF 4 MG/2 ML VIAL. IVP PRN (05:45)
[2020-11-26] MEDS ORDERED: dilTIAZem 25 MG/5 ML VIAL IVP ONE (06:30)
[2020-11-26] MEDS ORDERED: BENZOCAINE/MENTHOL LOZNGE 18'S BOX. PO PRN (06:45)
[2020-11-26] MEDS ORDERED: AZITHROMYCIN 250 MG TABLET. PO ONE (07:30)
[2020-11-26] MEDS ORDERED: IV NORMAL SALINE 50ML 50 ML ONE (07:42)
[2020-11-26] MEDS ORDERED: cefTRIAXone SODIUM 1 GM VIAL ONE (07:43)
[2020-11-26] MEDS ORDERED: METOPROLOL SUCC 24HR ER 25 MG TAB.ER.24H. PO ONE (07:45)
[2020-11-26] MEDS ORDERED: IV RINGERS SOLUTION,LACTATED 1,000 ML IV ONE (07:45)
[2020-11-26] MEDS ORDERED: PANTOPRAZOLE IV 40 MG VIAL. IVP ONE (11:15)
[2020-11-26 11:38] LABS: FECAL OB PT POSITIVE (NEG)
[2020-11-26] MEDS ORDERED: DEXAMETHASONE 4 MG TABLET PO ONE (15:15)
[2020-11-26] MEDS ORDERED: ENOXAPARIN 40 MG/0.4 ML SYRINGE. SQ ONE ×2 (15:15→15:16)
[2020-11-26] MEDS ORDERED: DEXAMETHASONE SOD PHOS 10 MG/ML VIAL. ONE (15:17)
[2020-11-26 16:55] VITALS: BP 127/88
[2020-11-26] MEDS ORDERED: ACETAMINOPHEN 500 MG TABLET PO PRN (17:15)
[2020-11-26] MEDS ORDERED: NITROGLYCERIN SUBLINGUAL 0.4 MG BOTTLE OF 25. SL PRN (17:15)
[2020-11-26] MEDS ORDERED: ZOLPIDEM 5 MG TABLET. PO PRN (17:15)
--- NOTE | 2020-11-26 18:46 | HP ---
ADMIT DATE: 11/26/2020 HISTORY OF PRESENT ILLNESS: The patient is an 80-year-old male patient who presented to the Emergency Room with shortness of breath and rapid heart rate, apparently has been feeling ill all day. He thought he was short of breath, so he has been using his CPAP at home for most of the day. He was not getting any better, so he decided to come to the Emergency Room. He also stated that he has chills and has cough with whitish to yellowish sputum. He was so weak that he was unable to get to walk from his car to the house. He also stated that he has actually lost weight since the last time, although according to the ER physician, he stated that he has gained several pounds since discharge. He denied any fever. He apparently was vaccinated against coronavirus; however, his coronavirus by PCR came back positive, likely due to the new strain. In the Emergency Room, he was treated with IV antibiotic as well as digoxin and diltiazem. He did receive a loading dose of diltiazem, was started on diltiazem drip. He also received digoxin 500 mcg and metoprolol 5 mg IV and also Lovenox and a liter of lactated Ringer's and was admitted for further evaluation and treatment. His lab work showed that his white cell count was high at 18,000. His chemistry was unremarkable. Has 2 sets of cardiac enzymes that ruled out myocardial infarction. His urinalysis was essentially unremarkable. His chest x-ray showed that the patient has acute left infrahilar bronchitis. PAST MEDICAL HISTORY: Significant for coronary artery disease, status post stent deployment x2. He is known to have COPD, atrial fibrillation, morbid obesity and obstructive sleep apnea, on BiPAP machine at nighttime. He is known to have hyperlipidemia, hypertension and was admitted with a complicated urinary tract infection before. PAST SURGICAL HISTORY: Significant for bilateral cataract extraction, umbilical hernia repair. He also had tonsillectomy, uvulopalatoplasty for obstructive sleep apnea. ALLERGIES: He has no known drug allergies. FAMILY HISTORY: Noncontributory. SOCIAL HISTORY: He is , lives alone. 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 He continued to smoke and apparently has started smoking when he was only 13 years old. He does not drink alcohol or recreational drugs. REVIEW OF SYSTEMS: As per history of present illness. MEDICATIONS: He is currently on the following medication: He is on Combivent Respimat inhaler twice a day, rivaroxaban 20 mg daily, atorvastatin calcium 40 mg at bedtime, nitroglycerin 0.4 mg sublingually every 5 minutes x 3, metoprolol succinate 50 mg once a day, diltiazem 300 mg capsule once a day, aspirin 81 mg once a day, acetaminophen 1000 mg every 6 hours, citalopram hydrobromide 40 mg once a day, Ambien tartrate 5 mg at bedtime, potassium gluconate 99 mg p.o. daily, furosemide 40 mg daily, Super Beta Prostate twice a day. PHYSICAL EXAMINATION: GENERAL: On arrival to the Emergency Room, he was tachypneic, tachycardic. No pallor, jaundice, cyanosis. No lymphadenopathy, no thyromegaly, no jugular venous distention. No limb edema. VITAL SIGNS: His heart rate on arrival was 132, blood pressure was 160/93, temperature was 98.2, respiratory rate was 32 and oxygen saturation was 97% on room air. HEAD, EYES, EARS, NOSE AND THROAT: Shows normocephalic, atraumatic. NECK: Supple. HEART: Normal first and second heart sounds. No gallop, rub or murmur. CHEST: Diminished breath sounds bilaterally, but no crepitation or rhonchi. ABDOMEN: Soft, nontender, no guarding or rigidity. No organomegaly. All hernial orifice intact. Bowel sounds normal. NEUROLOGIC: He was alert, oriented x3 with normal motor and sensory function with no obvious lateralizing sign. EXTREMITIES: Showed no clubbing, cyanosis or edema. PSYCHOLOGICAL: His affect, judgment and mood were normal. His EKG showed that he was in atrial fibrillation with rapid ventricular response with a heart rate of 121, leftward axis, no ST segment elevation or depression. Chest x-ray showed acute left infrahilar bronchitis. ASSESSMENT AND PLAN: He was given, while in the Emergency Room, 20 mg of Cardizem IV; was placed on a Cardizem drip. His BNP was over 3000, which is worse than previously and his Cardizem drip did not really improve his heart rate. His blood pressure has improved. He was given 500 mcg of digoxin and for some reason, the patient was also given a liter of normal saline and he was treated with IV antibiotic in the form of ceftriaxone and Zithromax and also Protonix as his stool for fecal occult blood was positive and was admitted to [facility] with a diagnosis of atrial fibrillation with rapid ventricular response, congestive heart failure, questionable gastrointestinal bleed. I will hold his anticoagulant while we will continue with all his other medication. We will monitor his H and H, and decide the further management accordingly. I would also consult the bench shear operator for atrial fibrillation with rapid ventricular response. DESIRAE DR: Naya TID: [id number]
[2020-11-26 20:16] VITALS: BP 128/76
[2020-11-26] MEDS: IPRATROPIUM/ALBUTEROL 20/100mcg/INH INHALER. INH SCH (20:57)
[2020-11-26] MEDS: ATORVASTATIN CALCIUM 20 MG TABLET PO SCH (20:57)
[2020-11-26] MEDS ORDERED: SUPER BETA PROSTATE PO SCH (21:00)
[2020-11-26] MEDS ORDERED: DIGOXIN IV 500 MCG/2 ML AMPUL. IV PRN (22:00)
[2020-11-26 22:40] VITALS: BP 142/86
[2020-11-27] MEDS: METOPROLOL TARTRATE 5 MG/5 ML VIAL. IV SCH ×4 (00:12→17:47)
[2020-11-27 05:40] VITALS: BP 115/66
[2020-11-27 06:19] LABS: HEMATOCRIT 38.8 % (39.0-53.0); HEMOGLOBIN 12.4 g/dL (13.0-17.5); RED BLOOD COUNT 4.41 x10^6/uL (4.30-5.70); RED CELL DISTRIBUTION WIDTH 16.4 % (11.5-14.5); WHITE BLOOD COUNT 11.2 x10^3/uL (4.0-11.0)
[2020-11-27 06:38] LABS: ALBUMIN 2.6 g/dL (3.4-5.0); ALBUMIN/GLOBULIN RATIO 0.9 (1.0-1.7); CALCIUM 8.2 mg/dL (8.5-10.1); GFR 71.7; POTASSIUM 4.5 mmol/L (3.5-5.1); TOTAL BILIRUBIN 0.5 mg/dL (0.2-1.0); TOTAL PROTEIN 5.6 g/dL (6.4-8.2)
[2020-11-27] MEDS: DEXAMETHASONE SOD PHOS 4 MG/ML VIAL. IVP SCH (08:36)
[2020-11-27] MEDS: FUROSEMIDE 40 MG TABLET PO SCH (08:37)
[2020-11-27] MEDS: AZITHROMYCIN 250 MG TABLET. PO SCH (08:38)
[2020-11-27] MEDS: IPRATROPIUM/ALBUTEROL 20/100mcg/INH INHALER. INH SCH ×2 (08:38→20:39)
[2020-11-27] MEDS: CITALOPRAM 20 MG TABLET. PO SCH (08:38)
[2020-11-27] MEDS ORDERED: METOPROLOL SUCC 24HR ER 50 MG TAB.ER.24H. PO SCH (09:00)
[2020-11-27] MEDS ORDERED: POTASSIUM BICARB 10 MEQ EFFERVESCENT TABLET. PO SCH (09:00)
[2020-11-27 10:31] VITALS: BP 137/87
[2020-11-27 15:20] VITALS: BP 105/72
[2020-11-27] MEDS: RIVAROXABAN 10 MG TABLET. PO SCH (17:46)
[2020-11-27] MEDS: POTASSIUM BICARB 10 MEQ EFFERVESCENT TABLET. PO SCH (17:46)
[2020-11-27 19:30] VITALS: BP 116/71
[2020-11-27] MEDS: ATORVASTATIN CALCIUM 20 MG TABLET PO SCH (20:40)
[2020-11-27 22:23] VITALS: BP 100/67
[2020-11-28] MEDS: METOPROLOL TARTRATE 5 MG/5 ML VIAL. IV SCH ×2 (00:24→06:16)
--- NOTE | 2020-11-28 01:15 | PN ---
DATE: 11/27/2020 SUBJECTIVE: The patient is resting almost flat in bed, in no apparent respiratory distress. He is awake, alert. On questioning him, he denied any complaint. Stated that he has no more shortness of breath, cough, but no more hemoptysis. His heart rate continued to be fluctuating up to 110 beats per minute despite being on metoprolol, diltiazem and 1 mg of digoxin in total. PHYSICAL EXAMINATION: VITAL SIGNS: When I examined him, his heart rate was 108, irregularly irregular; blood pressure is 105/72; temperature 97.7; respiratory rate 20 and oxygen saturation was 95%. HEAD, EYES, EARS, NOSE, AND THROAT: Normocephalic, atraumatic. NECK: Supple. HEART: Showed normal first and second heart sounds, no gallop or murmur. CHEST: Clear to auscultation. No crepitation or rhonchi. ABDOMEN: Distended, soft, nontender. NEUROLOGIC: He was awake, alert, responding appropriately. All cranial nerves intact. He moves extremities without difficult. He ambulates without assistance or assistive devices. His output was 2950, his intake incompletely recorded. LABORATORY DATA: As of this morning, his white cell count is down to 11,200, hemoglobin 12, hematocrit 38, MCV 88 and platelet count of 136,000. Serum sodium was 145, potassium 4.5, chloride 109, bicarbonate 32, anion gap of 4, BUN 16, creatinine 1, estimated GFR was 71 mL per minute. His glucose 160, calcium was 8.2. Total bilirubin, AST, ALT, alkaline phosphatase were normal. Total protein was 5.6, albumin was 2.6. TSH was 1.675. ASSESSMENT: 1. Acute hypoxic respiratory failure. 2. Acute chronic diastolic congestive heart failure. 3. Atrial fibrillation with rapid ventricular response. 4. Community-acquired pneumonia versus acute bronchitis, which he is on IV ceftriaxone and Zithromax. 5. Morbid obesity and obstructive sleep apnea. PLAN: To continue with all his current medication including his rivaroxaban. Continue with the IV ceftriaxone. Continue with oral azithromycin. Continue with his diuretics as well as the DuoNeb. We have already consulted the Cardiology team here and I spoke with his doctor Arleen. I left a message with Dr. Bacon who has not really called me back. If he remains stable tomorrow, I will discharge him home. He is COVID positive despite the fact that he has been vaccinated, although he has no symptoms in terms of fever, headache, stuffy nose or loss of smell or taste. JAY DR: Naya TID: [id number]
[2020-11-28 06:24] LABS: HEMATOCRIT 39.2 % (39.0-53.0); HEMOGLOBIN 12.8 g/dL (13.0-17.5); RED BLOOD COUNT 4.5 x10^6/uL (4.30-5.70); RED CELL DISTRIBUTION WIDTH 16.6 % (11.5-14.5); WHITE BLOOD COUNT 16.7 x10^3/uL (4.0-11.0)
[2020-11-28 06:28] LABS: CALCIUM 8.6 mg/dL (8.5-10.1); GFR 71.7; POTASSIUM 4.5 mmol/L (3.5-5.1)
[2020-11-28 08:29] VITALS: BP 148/87
[2020-11-28] MEDS: DEXAMETHASONE SOD PHOS 4 MG/ML VIAL. IVP SCH (08:54)
[2020-11-28] MEDS: POTASSIUM BICARB 10 MEQ EFFERVESCENT TABLET. PO SCH (08:55)
[2020-11-28] MEDS: FUROSEMIDE 40 MG TABLET PO SCH (08:55)
[2020-11-28] MEDS: CITALOPRAM 20 MG TABLET. PO SCH (08:55)
[2020-11-28] MEDS: AZITHROMYCIN 250 MG TABLET. PO SCH (08:55)
[2020-11-28] MEDS: IPRATROPIUM/ALBUTEROL 20/100mcg/INH INHALER. INH SCH (08:56)
[2020-11-28] MEDS ORDERED: ASPIRIN CHEWABLE 81 MG TABLET. PO SCH (09:00)
--- NOTE | 2020-11-28 09:10 | PDOC2 ---
CARDIAC CONSULT DATE OF CONSULT DOS: DATE: 11/28/20 TIME: 08:56 REASON FOR CONSULT Reason for Consult AFIB with RVR CHF REFERRING PHYSICIAN Referring Physician Dr. Warner SOURCE Source: Chart review, Patient HPI History of Present Illness This is an 80 yo male who presented secondary to shortness of breath and rapid heart beat. Has a history of AFIB. Was noted with RVR upon arrival. PAST MEDICAL HISTORY Past Medical History 1. Coronary artery disease, status post PCI. 2. Chronic atrial fibrillation, on anticoagulation. 3. CHF 4. COPD. 5. Hypertension. 6. Morbid obesity. 7. Dyslipidemia. 8. 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 PAST SURGICAL HISTORY Past Surgical History: Other (see PMH) FAMILY HISTORY Family History: Hypertension SOCIAL HISTORY Smoke: No ALCOHOL: none Drugs: None CURRENT MEDICATIONS Current Medications Current Medications Diltiazem HCl (Cardizem Iv Push) 20 mg 1X ONCE IVP Last administered on 11/25/20at 19:37; Start 11/25/20 at 19:15; Stop 11/25/20 at 19:52; Status DC Diltiazem HCl 125 mg/Sodium Chloride 125 ml @ 5 mls/hr CONT PRN IV SEE I/O RECORD Last administered on 11/25/20at 21:54; Start 11/25/20 at 20:30; Stop 11/26/20 at 11:17; Status DC Furosemide (Lasix) 40 mg 1X ONCE IVP Last administered on 11/25/20at 21:52; Start 11/25/20 at 22:00; Stop 11/25/20 at 22:01; Status DC Potassium Chloride (Klor-Con) 40 meq 1X ONCE PO Last administered on 11/25/20at 21:53; Start 11/25/20 at 22:00; Stop 11/25/20 at 22:01; Status DC Sodium Chloride 100 ml @ As Directed STK-MED ONCE .ROUTE ; Start 11/25/20 at 21:44; Stop 11/25/20 at 21:44; Status DC Diltiazem HCl (Cardizem) 125 mg STK-MED ONCE IV ; Start 11/25/20 at 21:44; Stop 11/25/20 at 21:45; Status DC Digoxin (Lanoxin) 500 mcg 1X ONCE IV Last administered on 11/26/20at 00:29; Start 11/26/20 at 00:30; Stop 11/26/20 at 00:36; Status DC Sodium Chloride 1,000 ml @ 1,000 mls/hr 1X ONCE IV Last administered on 11/26/20at 05:23; Start 11/26/20 at 05:15; Stop 11/26/20 at 06:15; Status DC Metoprolol Tartrate (Lopressor Vial) 5 mg 1X ONCE IV Last administered on 11/26/20at 05:22; Start 11/26/20 at 05:30; Stop 11/26/20 at 05:31; Status DC Ondansetron HCl (Zofran) 4 mg PRN Q4HRS PRN IVP NAUSEA/VOMITING; Start 11/26/20 at 05:45; Stop 11/27/20 at 05:44; Status DC Metoprolol Tartrate (Lopressor Vial) 5 mg 1X ONCE IV ; Start 11/26/20 at 06:30; Stop 11/26/20 at 06:11; Status DC Diltiazem HCl (Cardizem Iv Push) 20 mg 1X ONCE IVP Last administered on 11/26/20at 06:34; Start 11/26/20 at 06:30; Stop 11/26/20 at 06:31; Status DC Throat Lozenges (Cepacol Sore Throat Lozenge) 1 paige PRN Q2HR PRN PO SORE THROAT Last administered on 11/26/20at 07:56; Start 11/26/20 at 06:45 Ceftriaxone Sodium 1 gm/ Sodium Chloride 50 ml @ 100 mls/hr 1X ONCE IV Last administered on 11/26/20at 07:55; Start 11/26/20 at 07:30; Stop 11/26/20 at 07:59; Status DC Azithromycin (Zithromax) 500 mg 1X ONCE PO Last administered on 11/26/20at 07:55; Start 11/26/20 at 07:30; Stop 11/26/20 at 07:36; Status DC Metoprolol Succinate (Toprol Xl) 25 mg 1X ONCE PO Last administered on 11/26/20at 07:59; Start 11/26/20 at 07:45; Stop 11/26/20 at 07:46; Status DC Lactated Ringer's 1,000 ml @ 1,000 mls/hr 1X ONCE IV Last administered on 11/26/20at 08:01; Start 11/26/20 at 07:45; Stop 11/26/20 at 08:44; Status DC Sodium Chloride 50 ml @ As Directed STK-MED ONCE .ROUTE ; Start 11/26/20 at 07:42; Stop 11/26/20 at 07:43; Status DC Ceftriaxone Sodium (Rocephin) 1 gm STK-MED ONCE .ROUTE ; Start 11/26/20 at 07:43; Stop 11/26/20 at 07:43; Status DC Pantoprazole Sodium (Protonix Vial) 40 mg 1X ONCE IVP Last administered on 11/26/20at 11:28; Start 11/26/20 at 11:15; Stop 11/26/20 at 11:16; Status DC Dexamethasone (Decadron) 10 mg 1X ONCE PO Last administered on 11/26/20at 15:15; Start 11/26/20 at 15:15; Stop 11/26/20 at 15:17; Status DC Enoxaparin Sodium (Lovenox 40mg Syringe) 40 mg 1X ONCE SQ Last administered on 11/26/20at 15:15; Start 11/26/20 at 15:15; Stop 11/26/20 at 15:17; Status DC Dexamethasone Sodium Phosphate (Decadron) 10 mg STK-MED ONCE .ROUTE ; Start 11/26/20 at 15:17; Stop 11/26/20 at 15:17; Status DC Enoxaparin Sodium (Lovenox 40mg Syringe) 40 mg STK-MED ONCE SQ ; Start 11/26/20 at 15:16; Stop 11/26/20 at 15:17; Status DC Acetaminophen (Tylenol) 1,000 mg PRN Q6HRS PRN PO PAIN Last administered on 11/26/20at 20:58; Start 11/26/20 at 17:15 Diltiazem HCl (Diltiazem 24hr Cd) 300 mg DAILY PO Last administered on 11/27/20at 08:37; Start 11/27/20 at 09:00 Furosemide (Lasix) 40 mg DAILY PO Last administered on 11/27/20at 08:37; Start 11/27/20 at 09:00 Metoprolol Succinate (Toprol Xl) 50 mg DAILY PO ; Start 11/27/20 at 09:00; Stop 11/27/20 at 00:07; Status DC Nitroglycerin (Nitrostat) 0.4 mg PRN Q5MIN PRN SL CHEST PAIN; Start 11/26/20 at 17:15 Zolpidem Tartrate (Ambien) 5 mg PRN QHS PRN PO INSOMNIA Last administered on 11/26/20at 20:57; Start 11/26/20 at 17:15 Atorvastatin Calcium (Lipitor) 40 mg QHS PO Last administered on 11/27/20at 20:40; Start 11/26/20 at 21:00 Citalopram Hydrobromide (CeleXA) 40 mg DAILY PO Last administered on 11/27/20at 08:38; Start 11/27/20 at 09:00 Albuterol/ Ipratropium (Combivent Respimat 20-100 Mcg) 1 puff BID INH Last administered on 11/27/20at 20:39; Start 11/26/20 at 21:00 Potassium Bicarbonate (Potassium Effervescent Tablet) 2.5 meq DAILY PO Last administered on 11/27/20at 08:38; Start 11/27/20 at 09:00; Stop 11/27/20 at 15:13; Status DC Non-Formulary Medication ([Super Beta Prostate] ) 1 tab BID PO ; Start 11/26/20 at 21:00; Stop 11/26/20 at 17:48; Status DC Ceftriaxone Sodium 1 gm/ Sodium Chloride 50 ml @ 100 mls/hr Q24H IV Last administered on 11/27/20at 08:35; Start 11/27/20 at 08:00 Azithromycin (Zithromax) 250 mg DAILY PO Last administered on 11/27/20at 08:38; Start 11/27/20 at 09:00 Dexamethasone Sodium Phosphate (Decadron) 6 mg DAILY IVP Last administered on 11/27/20at 08:36; Start 11/27/20 at 09:00 Digoxin (Lanoxin) 500 mcg 1X ONCE IV ; Start 11/26/20 at 17:45; Stop 11/26/20 at 17:46; Status DC Digoxin (Lanoxin) 250 mcg 1X ONCE IV Last administered on 11/26/20at 18:15; Start 11/26/20 at 18:00; Stop 11/26/20 at 18:01; Status DC Digoxin (Lanoxin) 250 mcg PRN 1X PRN IV TACHYCARDIA Last administered on 11/27/20at 00:10; Start 11/26/20 at 22:00 Metoprolol Tartrate (Lopressor Vial) 5 mg Q6HRS IV Last administered on 11/28/20at 06:16; Start 11/27/20 at 00:30 Potassium Bicarbonate (Potassium Effervescent Tablet) 20 meq DAILY PO Last administered on 11/27/20at 17:46; Start 11/27/20 at 15:15 Aspirin (Aspirin Chewable) 81 mg DAILY PO ; Start 11/28/20 at 09:00 Rivaroxaban (Xarelto) 20 mg DAILYBFRSUP PO Last administered on 11/27/20at 17:46; Start 11/27/20 at 17:00 Active Scripts Active Reported Combivent Respimat Inhal (Ipratropium/Albuterol Sulfate) 4 Gm Aer.w.adap 1 Puff INH BID Zolpidem Tartrate 5 Mg Tablet 5 Mg PO PRN QHS PRN LAST DOSE GIVEN: DATE: TIME: NEXT DOSE DUE: DATE: TIME: Potassium Gluconate 99 Mg Tablet 99 Mg PO DAILY LAST DOSE GIVEN: DATE: TIME: NEXT DOSE DUE: DATE: TIME: Aspirin 81 Mg Tab.chew 81 Mg PO DAILY LAST DOSE GIVEN: DATE: TIME: NEXT DOSE DUE: DATE: TIME: Acetaminophen 500 Mg Tablet 1,000 Mg PO PRN Q6HRS PRN LAST DOSE GIVEN: DATE: TIME: NEXT DOSE DUE: DATE: TIME: [Super Beta Prostate] 1 Tab PO BID LAST DOSE GIVEN: DATE: TIME: NEXT DOSE DUE: DATE: TIME: NITROGLYCERIN SubLingual (Nitroglycerin) 0.4 Mg Tab.subl 0.4 Mg SL PRN Q5MIN PRN LAST DOSE GIVEN: DATE: TIME: NEXT DOSE DUE: DATE: TIME: Diltiazem 24HR Cd (Diltiazem Hcl) 300 Mg Cap.er.24h 300 Mg PO DAILY LAST DOSE GIVEN: DATE: TIME: NEXT DOSE DUE: DATE: TIME: Metoprolol Succinate ( Xl ) (Metoprolol Succinate) 50 Mg Tab.er.24h 50 Mg PO DAILY LAST DOSE GIVEN: DATE: TIME: NEXT DOSE DUE: DATE: TIME: Citalopram Hbr (Citalopram Hydrobromide) 40 Mg Tablet 40 Mg PO DAILY LAST DOSE GIVEN: DATE: TIME: NEXT DOSE DUE: DATE: TIME: Atorvastatin Calcium 40 Mg Tablet 40 Mg PO QHS LAST DOSE GIVEN: DATE: TIME: NEXT DOSE DUE: DATE: TIME: Furosemide 40 Mg Tablet 40 Mg PO DAILY LAST DOSE GIVEN: DATE: TIME: NEXT DOSE DUE: DATE: TIME: Xarelto (Rivaroxaban) 20 Mg Tablet 20 Mg PO DAILYBFRSUP LAST DOSE GIVEN: DATE: TIME: NEXT DOSE DUE: DATE: TIME: ALLERGIES Allergies: Coded Allergies: No Known Drug Allergies (Unverified , 11/12/19) ROS Review of Systems 14 point ROS conducted with pertinent positives noted above in HPI PHYSICAL EXAM General: Alert, Oriented X3, Cooperative, No acute distress HEENT: Atraumatic Lungs: Other (diminished bases, on RA) Heart: Other (IRRR; tele AFIB ) Abdomen: Soft, Other (obese) Extremities: No edema, Normal pulses Skin: No breakdown Neuro: Normal speech, Sensation intact Psych/Mental Status: Mental status NL, Mood NL MUSCULOSKELETAL: Osteoarthritic changes both hands VITALS Vital Signs Vital Signs Date Time Temp Pulse Resp B/P (MAP) Pulse Ox O2 Delivery O2 Flow Rate FiO2 11/28/20 08:29 97.3 82 20 148/87 (107) 94 Room Air 11/27/20 08:00 2.0 LABS LABS Laboratory Tests Test 11/26/20 11:05 11/27/20 05:50 11/28/20 05:44 Stool Occult Blood Positive (NEG) White Blood Count 11.2 x10^3/uL (4.0-11.0) 16.7 x10^3/uL (4.0-11.0) Red Blood Count 4.41 x10^6/uL (4.30-5.70) 4.50 x10^6/uL (4.30-5.70) Hemoglobin 12.4 g/dL (13.0-17.5) 12.8 g/dL (13.0-17.5) Hematocrit 38.8 % (39.0-53.0) 39.2 % (39.0-53.0) Mean Corpuscular Volume 88 fL (79-100) 87 fL (79-100) Mean Corpuscular Hemoglobin 28 pg (25-35) 29 pg (25-35) Mean Corpuscular Hemoglobin Concent 32 g/dL (31-37) 33 g/dL (31-37) Red Cell Distribution Width 16.4 % (11.5-14.5) 16.6 % (11.5-14.5) Platelet Count 136 x10^3/uL (140-400) 161 x10^3/uL (140-400) Sodium Level 145 mmol/L (136-145) 141 mmol/L (136-145) Potassium Level 4.5 mmol/L (3.5-5.1) 4.5 mmol/L (3.5-5.1) Chloride Level 109 mmol/L (98-107) 103 mmol/L (98-107) Carbon Dioxide Level 32 mmol/L (21-32) 33 mmol/L (21-32) Anion Gap 4 (6-14) 5 (6-14) Blood Urea Nitrogen 16 mg/dL (8-26) 20 mg/dL (8-26) Creatinine 1.0 mg/dL (0.7-1.3) 1.0 mg/dL (0.7-1.3) Estimated GFR (Cockcroft-Gault) 71.7 71.7 BUN/Creatinine Ratio 16 (6-20) Glucose Level 160 mg/dL (70-99) 143 mg/dL (70-99) Calcium Level 8.2 mg/dL (8.5-10.1) 8.6 mg/dL (8.5-10.1) Total Bilirubin 0.5 mg/dL (0.2-1.0) Aspartate Amino Transf (AST/SGOT) 10 U/L (15-37) Alanine Aminotransferase (ALT/SGPT) 25 U/L (16-63) Alkaline Phosphatase 78 U/L (46-116) Total Protein 5.6 g/dL (6.4-8.2) Albumin 2.6 g/dL (3.4-5.0) Albumin/Globulin Ratio 0.9 (1.0-1.7) ECHOCARDIOGRAM Echocardiogram 01/07/20 - 2D + DOPPLER ECHO Interpretation Summary Left Ventricle: The left ventricular size is normal. Mild concentric hypertrophy. The left ventricular systolic function is normal. The ejection frac tion by Calhoun's biplane method is 57%. There are no segmental wall motion abnormalities. Right Ventricle: The right ventricle is mildly dilated. The right ventricular systolic function is normal. Severe biatrial enlargement. There is no hemodynamically significant valvular disease. Estimated Peak Systolic PA Pressure 32 mmHg No pericardial effusion. Compared with study dated 2014, no significant change is noted. STRESS TEST Stress Test 02/17/18 - Procedure: D-SPECT MULTI GATED THALLIUM REGADENOSON MPI STRESS TEST SUMMARY/OPINION: The study is probably abnormal and suggest a limited area of possible ischemia in the mid to apical inferior lateral wall. The presence of significant soft tissue attenuation decreases the specificity of this study. It should be noted that the patient could only be imaged in upright imaging plane, which also decreases the specificity of this study. Overall left ventricular systolic function is normal at 59%. There are no definite high risk adverse prognostic indicators present on this study. This study is compared to prior study dated October 24, 2015. On the previous study the left ventricular ejection fraction was 51%. The previous study does show similar perfusion pattern on upright imaging with improved perfusion on supine imaging previously suggesting soft tissue attenuation comparing the 2 studies the perfusion patterns are similar. On today's study we only have upright imaging and there does appear to be very small reversible perfusion defect in the the mid to apical inferior lateral wall. ASSESSMENT/PLAN Assessment/Plan 1. Acute respiratory failure in setting of RVR 2. Permanent AFIB presenting with RVR; rate now controlled 3. Acute on chronic diastolic CHF; appears compensated. Echo 01/15 with preserved LV systolic function 4. CAD s/p PCI/stent to the LAD, diagonal and OM in 2014. A. Follows with Dr. Arleen ARCE. Clinically stable, CP free 5. Hypertension; controlled 6. Hyperlipidemia; statin 7. DON with BiPAP 8. Leukocytosis 9. COVID +; previously vaccinated Recommendations Continue Cardizem, metoprolol for rate control. Will convert metoprolol to oral Xarelto for stroke prophylaxis Secondary prevention measures Oral Lasix therapy Supportive care Follow up with Dr. Bacon upon discharge ESTRADA MERCADO APRN Nov 28, 2020 09:10
[2020-11-28] MEDS: METOPROLOL TART IMMED RELEASE 50 MG TABLET PO SCH ×2 (10:43→17:32)
[2020-11-28 14:51] VITALS: BP 128/76
[2020-11-28] MEDS ORDERED: AZIT250T PO (16:28)
[2020-11-28] MEDS ORDERED: CITA20TA9 PO (16:28)
[2020-11-28] MEDS ORDERED: METO50TA6 PO (16:28)
[2020-11-28] MEDS ORDERED: CEFD300C PO (16:28)
[2020-11-28] MEDS ORDERED: DEXA4TAB PO (16:30)
[2020-11-28] MEDS ORDERED: CITA40TA5 PO (17:15)
[2020-11-28] MEDS: RIVAROXABAN 10 MG TABLET. PO SCH (17:31)
[2020-11-28 17:32] VITALS: BP 128/76
--- NOTE | 2020-11-28 20:26 | DS ---
DATE OF DISCHARGE: 11/28/2020 HOSPITAL COURSE: The patient is an 80-year-old male patient who came with a complaint of worsening shortness of breath with acute hypoxic respiratory failure, acute on chronic diastolic congestive heart failure. Also, has what seemed to be acute bronchitis versus pneumonia. We did start him on IV ceftriaxone and Zithromax. He was found to be COVID positive, although he was vaccinated for COVID virus. He was generally asymptomatic. He has atrial fibrillation with rapid ventricular response and therefore, he was seen by our Cardiology team and his Toprol-XL was switched to metoprolol tartrate 50 mg twice a day. He remained stable, afebrile and therefore, decision was made to discharge him home to continue with antibiotic and tapering course of steroids as an outpatient. He was also advised to quarantine himself for 10 days. PHYSICAL EXAMINATION: GENERAL: When I examined him today, he was sitting on the edge of the bed comfortably, in no apparent respiratory distress. There was no pallor, jaundice, cyanosis or thyromegaly. No jugular venous distention. No lower limb edema. VITAL SIGNS: His heart rate was 100, blood pressure is 128/76, temperature was 98, respiratory rate 20, and oxygen saturation was 94% on room air. HEAD, EYES, EARS, NOSE AND THROAT: Shows normocephalic, atraumatic. NECK: Supple. HEART: Showed normal first and second heart sounds, no gallop, rub or murmur. CHEST: Clear to auscultation, no crepitation or rhonchi. ABDOMEN: Distended, soft, nontender. NEUROLOGIC: He was grossly intact. LABORATORY DATA: This morning showed a white cell count of 16,700, hemoglobin 12.8, hematocrit 39, MCV 87, platelet count of 161,000. His serum sodium was 141, potassium 4.5, chloride 103, bicarbonate 33, anion gap of 5, BUN 20, creatinine 1, estimated GFR was 71 mL per minute. His glucose 143, calcium was 8.6. TSH was normal at 1.675. DISCHARGE MEDICATIONS: He was discharged home to continue on Zithromax 250 mg once a day for 3 days, cefdinir 300 mg twice a day for 7 days, citalopram hydrobromide was cut down to 20 as he wanted to discontinue it because of withdrawal syndrome, we will cut it down slowly to 20 and probably down to 10 and finally stop it, dexamethasone 4 mg once a day for 3 days and then 2 mg once a day for 3 days, metoprolol tartrate 50 mg twice a day. He will continue with all his other medication including diltiazem CD 300 mg once a day, furosemide 40 mg daily, atorvastatin calcium 40 mg at bedtime, aspirin 81 mg once a day, Tylenol 1000 mg every 6 hours, ipratropium bromide/albuterol sulfate 1 puff twice a day, nitroglycerin 0.4 mg sublingual every 5 minutes x3, potassium gluconate 99 mg once a day, rivaroxaban 20 mg once a day and Super Beta Prostate one tablet twice a day. FINAL DISCHARGE DIAGNOSES: Acute on chronic hypoxic respiratory failure, acute on chronic diastolic congestive heart failure, chronic atrial fibrillation with rapid ventricular response, coronary artery disease status post PCI with stent deployment, hypertension, hyperlipidemia, morbid obesity, obstructive sleep apnea. The patient was previously vaccinated, but he came back with COVID positive. The patient was advised to quarantine himself for about 10 days starting today, he was tested as about 7 days from now, he can contact also the local health department. He has an appointment to see Dr. Bacon on the of this month. HANSA GLORIA: Naya TID: [id number]
[2020-11-28] MEDS ORDERED: LACTOBACILLUS RHAMNOSUS GG 1 CAPSULE. PO SCH (21:00)
== END 2020-11-28 19:41 | disposition home or self-care (01) | DRG 177 ==
LOC: ER 18:43 → 1 SOUTH 11-26 05:43
PROVIDERS: ADMIT Internal Medicine; ATTEND Internal Medicine
DX: U07.1 COVID-19 (principal); J12.82 Pneumonia due to coronavirus disease 2019; E43 Unspecified severe protein-calorie malnutrition; J96.21 Acute and chronic respiratory failure with hypoxia; I50.33 Acute on chronic diastolic (congestive) heart failure; I48.21 Permanent atrial fibrillation; J44.0 Chronic obstructive pulmonary disease with (acute) lower respiratory infection; K92.2 Gastrointestinal hemorrhage, unspecified; I11.0 Hypertensive heart disease with heart failure; D72.829 Elevated white blood cell count, unspecified; E66.01 Morbid (severe) obesity due to excess calories; E78.5 Hyperlipidemia, unspecified; F17.200 Nicotine dependence, unspecified, uncomplicated; G47.33 Obstructive sleep apnea (adult) (pediatric); I25.10 Atherosclerotic heart disease of native coronary artery without angina pectoris; N40.0 Benign prostatic hyperplasia without lower urinary tract symptoms; Z79.01 Long term (current) use of anticoagulants; Z82.49 Family history of ischemic heart disease and other diseases of the circulatory system; Z95.5 Presence of coronary angioplasty implant and graft; Z98.41 Cataract extraction status, right eye; Z98.42 Cataract extraction status, left eye; F32.9 Major depressive disorder, single episode, unspecified; Z68.37 Body mass index [BMI] 37.0-37.9, adult; Z60.2 Problems related to living alone; J20.9 Acute bronchitis, unspecified
CPT/HCPCS: 36415; 71045; 80048; 80053; 81001; 82274; 83735; 83880; 84443; 84484; 85007; 85025; 85027; 86850; 86900; 86901; 87086; 93005; 96365; 96366; 96372; 96375; 96376; C9113; J0696; J1100; J1160; J1650; J1940; J3490; J7120; J8540; U0003; 99285-25; J7030

== ENCOUNTER 2021-01-30 13:13 | Emergency (ER) | payer MEDICARE, OTHER ==
[~2021-01-30] VITALS: Ht 180.3 cm; Wt 124.9 kg
[~2021-01-30 13:13] MED LIST changes: +AZIT250T PO; +CEFD300C PO; +CITA20TA9 PO; +DEXA4TAB PO; +IPRA4AER INH; +METO50TA6 PO
[2021-01-30 13:31] VITALS: BP 134/66
--- NOTE | 2021-01-30 13:35 | EKG ---
[address] [address] Test Date: 2021-01-30 Test Time: 13:22:54 Pat Name: SHIVAM CASTILLO Department: Room: [facility]: [facility] Rn: MON[facility] : 1940 Requested By: ELIECER CORCORAN Order Number: [id number] Reading MD: Darius Lara Measurements Intervals [place] Rate: 69 P: SD: QRS: -11 QRSD: 82 T: 28 QT: 444 QTc: 477 Interpretive Statements ATRIAL FIBRILLATION LEFTWARD AXIS LOW LIMB LEAD VOLTAGE PROLONGED QT Electronically Signed On 01-30-2021 13:36:39 CDT by Darius Lara
--- NOTE | 2021-01-30 13:42 | PHYS DOC ---
Past History Past Medical History: A-Fib, CAD, Depression, Hypertension Additional Past Medical Histor: BPH Past Surgical History: No Surgical History Additional Past Surgical Histo: SLEEP APNEA SURGERY; CARDIAC STENTS Smoking: Less than 1pk/day Alcohol Use: Occasionally General Adult EDM: Chief Complaint: SHORTNESS OF BREATH HPI: HPI: Patient is a [age] year old [sex] who presents with [] Review of Systems: Review of Systems: Constitutional: Denies fever or chills Eyes: Denies redness or eye pain HENT: Denies nasal congestion or sore throat Respiratory: Denies cough or shortness of breath Cardiovascular: Denies chest pain or palpitations GI: Denies abdominal pain, nausea, or vomiting : Denies dysuria or hematuria Musculoskeletal: Denies back pain or joint pain Integument: Denies rash or skin lesions Neurologic: Denies headache, focal weakness or sensory changes Complete systems were reviewed and found to be within normal limits, except as documented in this note. Current Medications: Current Meds: Current Medications Medications (Trade) Dose Ordered Sig/Jacque Start Time Stop Time Status Last Admin Dose Admin Iohexol (Omnipaque 350 Mg/ml) 100 ml 1X ONCE 01/30/21 13:45 01/30/21 13:46 Allergies: Allergies: Allergies Coded Allergies Type Severity Reaction Last Updated Verified No Known Drug Allergies 11/12/19 No Physical Exam: PE: Constitutional: Well developed, well nourished, no acute distress, non-toxic appearance HENT: Normocephalic, atraumatic Eyes: PERRL, EOMI, conjunctiva normal, no discharge Neck: Normal range of motion, no tenderness, supple Lungs & Thorax: No respiratory distress, equal chest rise and fall Abdomen: Soft, no tenderness Skin: Warm, dry, no erythema, no rash Back: No tenderness, no CVA tenderness Extremities: No tenderness, ROM intact, no edema Neurologic: Alert and oriented X 3, normal motor function, normal sensory function, no focal deficits noted Psychologic: Affect normal, judgment normal Current Patient Data: Vital Signs: Vital Signs Date Time Temp Pulse Resp B/P (MAP) Pulse Ox O2 Delivery O2 Flow Rate FiO2 01/30/21 13:31 98.5 76 22 134/66 (88) 96 EKG: EKG: @1322 Afib at 69bpm, NO ST elevation, QRS 82ms, QT/QTc 444/477ms Radiology/Procedures: Radiology/Procedures: PROCEDURE: CT ANGIOGRAPHY CHEST EXAMINATION: CTA Chest With IV contrast INDICATION:80 years, Male, dyspnea, chest pain, evaluate for pulmonary embolism. Recent Covid 19 pneumonia COMPARISON: 05/18/2020 and 03/08/2020. TECHNIQUE: Spiral CTA was obtained from the jugular notch through the posterior costophrenic recess. 3-D MIPS, sagittal and coronal reformats were obtained. Exposure: One or more of the following individualized dose reduction techniques were utilized for this examination: 1. Automated exposure control 2. Adjustment of the mA and/or kV according to patient size 3. Use of iterative reconstruction technique. FINDINGS: LUNGS/PLEURA: Central airways are patent. Calcified granuloma in the left lung base. Mild to moderate centrilobular and paraseptal emphysema particularly in the upper lobes. Left basilar subsegmental atelectasis. Prominent bilateral posterior pleural fat. Bronchial wall thickening in the lower lobes. No focal consolidation, pleural effusion or pneumothorax. Unchanged 7.5 mm fissure based in the superior segment of the right lower lobe pulmonary nodule (series 4 image 67). MEDIASTINUM: Prominent to mildly enlarged mediastinal and right hilar lymph nodes, slightly increasing size since prior exam. For example, subcarinal lymph node now measures 1.2 cm in short axis, previously 0.7 cm. Right hilar lymph node measures 1.5 cm in short axis, previously 1.2 cm. Calcified left hilar lym ph nodes. Ectatic ascending thoracic aorta measures up to 3.9 cm in diameter. Pulmonary arteries are normal in caliber. No evidence of pulmonary embolism. Cardiomegaly. No pericardial effusion. Severe calcified coronary atherosclerosis. The visualized thyroid and the esophagus are unremarkable. AXILLA/SOFT TISSUE: No supraclavicular or axillary adenopathy. Regional soft tissues are within normal limits. UPPER ABDOMEN: Small simple appearing cysts in the left kidney. Calcified granulomas in the spleen. Unchanged small lipomas in the proximal stomach, and pylorus, the largest measures 2.2 cm. Partially imaged smaller lipoma within the third portion of the duodenum measures 1.0 cm. BONES: No evidence of acute fractures or aggressive osseous lesions. Multilevel degenerative changes in the spine. IMPRESSION: 1. No evidence of pulmonary embolism. 2. Bronchial wall thickening in the lower lobes, may reflect infectious/inflammatory bronchiolitis. 3. Stable 7.5 mm pulmonary nodule in the superior segment of right lower lobe since February 2020. Recommend 6-12 months follow-up with CT chest. 4. Prominent to mildly enlarged mediastinal and right hilar lymph nodes, slightly increasing in size since prior exam. Findings favor reactive etiology. Electronically signed by: Maria D Rodríguez MD (01/30/2021 3:05 PM) [id number] Heart Score: C/O Chest Pain: N/A Course & Med Decision Making: Course & Med Decision Making Pertinent Labs and Imaging studies reviewed. (See chart for details) Patient stable for discharge with outpatient follow-up with PCP. Discussed findings and plan with patient, who acknowledges understanding and agreement. Takkle Disclaimer: Takkle Disclaimer: This electronic medical record was generated, in whole or in part, using a voice recognition dictation system. Departure Departure: Impression: Primary Impression: Bronchitis Additional Impressions: Pulmonary nodule Cellulitis Qualified Codes: L03.119 - Cellulitis of unspecified part of limb Disposition: HOME / SELF CARE / HOMELESS Condition: STABLE Referrals: DENNIS JEREZ MD (PCP) Patient Instructions: Acute Bronchitis, [id number], Cellulitis, [id number], Pulmonary Nodule, [id number]-[id number] Additional Instructions: Please follow closely with your doctor regarding further evaluation and treatment. Please given them copy of your CT results as future re-imaging is recommended. Scripts Doxycycline Hyclate (DOXYCYCLINE HYCLATE) 100 Mg Tablet 1 TAB PO BID for Bronchitis/Cellulitis, #20 TAB Prov: ELIECER CORCORAN DO 01/30/21 Prednisone (PREDNISONE) 20 Mg Tablet 2 TAB PO DAILY for Bronchitis, #8 TAB Start this prescription tomorrow, 01/31/21 Prov: ELIECER CORCORAN DO 01/30/21 ELIECER CORCORAN DO Jan 30, 2021 13:42
[2021-01-30] MEDS ORDERED: IOHEXOL 350 MG/ML 100 ML VIAL. IV ONE (13:45)
[2021-01-30 14:35] LABS: BASO # 0.1 x10^3/uL (0.0-0.2); BASO % 1 % (0-3); EOS # 0.4 x10^3/uL (0.0-0.7); EOS % 4 % (0-3); HEMATOCRIT 34.7 % (39.0-53.0); HEMOGLOBIN 11.2 g/dL (13.0-17.5); LYMPH # 1.1 x10^3/uL (1.0-4.8); LYMPH % 11 % (24-48); MEAN CORPUSCULAR HEMOGLOBIN 28 pg (25-35); MEAN CORPUSCULAR HGB CONC 32 g/dL (31-37); MEAN CORPUSCULAR VOLUME 86 fL (79-100); MONO # 1.1 x10^3/uL (0.0-1.1); MONO % 11 % (0-9); NEUT % 74 % (31-73); PLATELET COUNT 241 x10^3/uL (140-400); RED BLOOD COUNT 4.05 x10^6/uL (4.30-5.70); RED CELL DISTRIBUTION WIDTH 17.8 % (11.5-14.5); WHITE BLOOD COUNT 10.8 x10^3/uL (4.0-11.0)
[2021-01-30 15:03] LABS: CALCIUM 8.7 mg/dL (8.5-10.1); CREATININE 1.2 mg/dL (0.7-1.3); GFR 58.1
--- NOTE | 2021-01-30 15:07 | RAD ---
EXAMINATION: CTA Chest With IV contrast INDICATION:80 years, Male, dyspnea, chest pain, evaluate for pulmonary embolism. Recent Covid 19 pneu monia COMPARISON: 05/18/2020 and 03/08/2020. TECHNIQUE: Spiral CTA was obtained from the jugular notch through the posterior costophrenic recess. 3-D MIPS, sagittal and coronal reformats were obtained. Exposure: One or more of the following individualized dose reduction techniques were utilized for thi s examination: 1. Automated exposure control 2. Adjustment of the mA and/or kV according to patient size 3. Use of iterative reconstruction technique. FINDINGS: LUNGS/PLEURA: Central airways are patent. Calcified granuloma in the left lung base. Mild to moderate centrilobular and paraseptal emphysema particularly in the upper lobes. Left basilar subsegmental at electasis. Prominent bilateral posterior pleural fat. Bronchial wall thickening in the lower lobes. N o focal consolidation, pleural effusion or pneumothorax. Unchanged 7.5 mm fissure based in the superi or segment of the right lower lobe pulmonary nodule (series 4 image 67). MEDIASTINUM: Prominent to mildly enlarged mediastinal and right hilar lymph nodes, slightly increasin g size since prior exam. For example, subcarinal lymph node now measures 1.2 cm in short axis, previo usly 0.7 cm. Right hilar lymph node measures 1.5 cm in short axis, previously 1.2 cm. Calcified left hilar lymph nodes. Ectatic ascending thoracic aorta measures up to 3.9 cm in diameter. Pulmonary lindsay trinh are normal in caliber. No evidence of pulmonary embolism. Cardiomegaly. No pericardial effusion. Severe calcified coronary atherosclerosis. The visualized thyroid and the esophagus are unremarkable . AXILLA/SOFT TISSUE: No supraclavicular or axillary adenopathy. Regional soft tissues are within cornel l limits. UPPER ABDOMEN: Small simple appearing cysts in the left kidney. Calcified granulomas in the spleen. U nchanged small lipomas in the proximal stomach, and pylorus, the largest measures 2.2 cm. Partially i pacheco smaller lipoma within the third portion of the duodenum measures 1.0 cm. BONES: No evidence of acute fractures or aggressive osseous lesions. Multilevel degenerative changes in the spine. IMPRESSION: 1. No evidence of pulmonary embolism. 2. Bronchial wall thickening in the lower lobes, may reflect infectious/inflammatory bronchiolitis. 3. Stable 7.5 mm pulmonary nodule in the superior segment of right lower lobe since February 2020. Re commend 6-12 months follow-up with CT chest. 4. Prominent to mildly enlarged mediastinal and right hilar lymph nodes, slightly increasing in size since prior exam. Findings favor reactive etiology. Electronically signed by: Maria D Rodríguez MD (01/30/2021 3:05 PM) [id number]
[2021-01-30 15:37] LABS: ALBUMIN 2.8 g/dL (3.4-5.0); ALBUMIN/GLOBULIN RATIO 0.8 (1.0-1.7); TOTAL BILIRUBIN 0.7 mg/dL (0.2-1.0); TOTAL PROTEIN 6.2 g/dL (6.4-8.2)
[2021-01-30] MEDS ORDERED: DOXYCYCLINE HYCLATE 100 MG TABLET PO ONE (17:15)
[2021-01-30] MEDS ORDERED: DEXAMETHASONE 4 MG TABLET PO ONE (17:15)
[2021-01-30] MEDS ORDERED: DOXY100T PO (17:19)
[2021-01-30] MEDS ORDERED: PRED20TA PO (17:19)
[2021-01-30 18:49] LABS: BILIRUBIN,URINE NEG (NEG); CLARITY,URINE CLOUDY; COLOR,URINE YELLOW; GLUCOSE,URINE NEG (NEG)
[2021-01-30 18:50] LABS: BACTERIA,URINE MOD /HPF (0-FEW); NITRITE,URINE POS (NEG); SQUAMOUS EPITHELIAL CELL,UR OCC /LPF; UROBILINOGEN,URINE 0.2 mg/dL (0.2 mg/dL)
== END 2021-01-30 17:43 | disposition home or self-care (01) ==
LOC: ER 13:13
DX: R91.1 Solitary pulmonary nodule (principal); L03.119 Cellulitis of unspecified part of limb; I48.91 Unspecified atrial fibrillation; I25.10 Atherosclerotic heart disease of native coronary artery without angina pectoris; I10 Essential (primary) hypertension; F17.200 Nicotine dependence, unspecified, uncomplicated; Z20.822 Contact with and (suspected) exposure to COVID-19
CPT/HCPCS: 36415; 71275; 80053; 81001; 82553; 83735; 83880; 84484; 85025; 85610; 85730; 87086; 93005; 99285; C9803; Q9967; U0003

== ENCOUNTER 2021-02-17 17:24 | Emergency (ER) | payer MEDICARE, OTHER ==
[~2021-02-17] VITALS: Ht 180.3 cm; Wt 124.9 kg
[~2021-02-17 17:24] MED LIST changes: +DOXY100T PO; +PRED20TA PO
[2021-02-17 18:11] VITALS: BP 105/64
--- NOTE | 2021-02-17 18:14 | EKG ---
[address] [address] Test Date: 2021-02-17 Test Time: 17:33:04 Pat Name: SHIVAM CASTILLO Department: Room: Gender: M [employer] Operator: SARAHY : 1940 Requested By: ELIECER RDZ Order Number: [id number] Reading MD: Joe Ireland MD Measurements Intervals [place] Rate: 91 P: MA: QRS: -26 QRSD: 80 T: 27 QT: 380 QTc: 469 Interpretive Statements Atrial fibrillation with controlled ventricular response NON-SPECIFIC ST/T CHANGES Electronically Signed On 02-19-2021 8:53:33 CDT by Joe Ireland MD
--- NOTE | 2021-02-17 18:41 | RAD ---
XR CHEST 1V INDICATION: Shortness of breath COMPARISON STUDY: 11/25/2020. FINDINGS: Lungs: Normal lung volume. Patchy bilateral opacities. Pleura: No pleural effusion or pneumothorax. Heart and Mediastinum: Cardiomegaly. Tortuous atherosclerotic aorta. IMPRESSION: Patchy bilateral opacities, likely multifocal infection or edema. Electronically signed by: Chadd Zabala MD (02/17/2021 6:39 PM) [facility] CENTERMargarita
[2021-02-17 19:32] LABS: BASO # 0.1 x10^3/uL (0.0-0.2); BASO % 1 % (0-3); EOS # 0.2 x10^3/uL (0.0-0.7); EOS % 2 % (0-3); HEMATOCRIT 37.6 % (39.0-53.0); HEMOGLOBIN 11.8 g/dL (13.0-17.5); LYMPH # 0.8 x10^3/uL (1.0-4.8); LYMPH % 7 % (24-48); MEAN CORPUSCULAR HEMOGLOBIN 27 pg (25-35); MEAN CORPUSCULAR HGB CONC 31 g/dL (31-37); MEAN CORPUSCULAR VOLUME 86 fL (79-100); MONO # 0.8 x10^3/uL (0.0-1.1); MONO % 8 % (0-9); NEUT # 9.2 x10^3uL (1.8-7.7); NEUT % 83 % (31-73); PLATELET COUNT 225 x10^3/uL (140-400); RED BLOOD COUNT 4.39 x10^6/uL (4.30-5.70); RED CELL DISTRIBUTION WIDTH 18.3 % (11.5-14.5); WHITE BLOOD COUNT 11.2 x10^3/uL (4.0-11.0)
[2021-02-17 19:36] LABS: CALCIUM 8.9 mg/dL (8.5-10.1); GFR 71.7; POTASSIUM 4.2 mmol/L (3.5-5.1)
[2021-02-17 19:56] LABS: ALBUMIN 3.1 g/dL (3.4-5.0); ALBUMIN/GLOBULIN RATIO 0.9 (1.0-1.7); TOTAL BILIRUBIN 0.6 mg/dL (0.2-1.0); TOTAL PROTEIN 6.6 g/dL (6.4-8.2)
[2021-02-17] MEDS ORDERED: FUROSEMIDE 40 MG TABLET PO ONE ×2 (21:30→22:00)
--- NOTE | 2021-02-17 21:43 | PHYS DOC ---
Past History Past Medical History: A-Fib, CAD, Depression, Hypertension Additional Past Medical Histor: BPH, COVID (ELIECER RDZ APRN) Past Surgical History: No Surgical History Additional Past Surgical Histo: SLEEP APNEA SURGERY; CARDIAC STENTS (ELIECER RDZ APRN) Smoking: Less than 1pk/day Alcohol Use: Occasionally (ELIECER RDZ APRN) Adult General Chief Complaint Chief Complaint: SHORTNESS OF BREATH HPI HPI Patient is a 80-year-old male complaining of a slow onset of shortness of breath and cough that has been progressive mainly getting worse over the past month. Patient states he has a history of congestive heart failure and worries that he might need his diuretics adjusted. Patient denies chest pain, denies nasal or chest congestion. Denies abdominal pain, nausea, vomiting or diarrhea. Patient denies dizziness or syncopal episodes. Patient denies other physical complaints or physical concerns. (ELIECER RDZ APRN) Review of Systems Review of Systems 14 body systems of review of systems have been reviewed. See HPI for pertinent positives and negative responses, otherwise all other systems are negative, nonpertinent or noncontributory. Constitutional: Negative except as outlined in HPI above. Skin: Negative except as outlined in HPI above. Eyes: Negative except as outlined in HPI above. HENT: Negative except as outlined in HPI above. Respiratory: Negative except as outlined in HPI above. Cardiovascular: Negative except as outlined in HPI above. GI: Negative except as outlined in HPI above. : Negative except as outlined in HPI above. Musculoskeletal: Negative except as outlined in HPI above. Integument: Negative except as outlined in HPI above. Neurologic: Negative except as outlined in HPI above. Endocrine: Negative except as outlined in HPI above. Lymphatic: Negative except as outlined in HPI above. Psychiatric: Negative except as outlined in HPI above. (ELIECER RDZ APRN) Current Medications Current Medications Current Medications Medications (Trade) Dose Ordered Sig/Jacque Start Time Stop Time Status Last Admin Dose Admin Furosemide (Lasix) 80 mg 1X ONCE 02/17/21 21:30 02/17/21 21:31 UNV Potassium Chloride (Klor-Con) 40 meq 1X ONCE 02/17/21 21:30 02/17/21 21:31 UNV (ELIECER RDZ APRN) Allergies Allergies Allergies Coded Allergies Type Severity Reaction Last Updated Verified No Known Drug Allergies 11/12/19 No (ELIECER RDZ APRN) Physical Exam Physical Exam Constitutional: Well developed, well nourished, no acute distress, non-toxic appearance. 80-year-old male in no apparent distress. HENT: Normocephalic, atraumatic. Eyes: Conjunctiva normal, no discharge. Neck: Normal range of motion, no stridor. Cardiovascular: No cyanosis appreciated, distal cap refill less than 2 seconds. Lungs & Thorax: Patient is in no respiratory distress, no audible adventitious lung sounds appreciated. Diminished breath sounds bilateral bases, clear lung sounds upper lobes. Abdomen: Nontender, no abnormalities noted. Skin: Warm, dry, no erythema, no rash. Back: No tenderness, no deformities. Extremities: No tenderness, no cyanosis, no clubbing, ROM intact, no edema. Neurologic: Alert and oriented X 3, normal motor function, normal sensory function, no focal deficits noted. Psychologic: Affect normal, judgement normal, mood normal. (ELIECER RDZ APRN) Current Patient Data Vital Signs Vital Signs Date Time Temp Pulse Resp B/P (MAP) Pulse Ox O2 Delivery O2 Flow Rate FiO2 02/17/21 18:11 99 21 105/64 (78) 96 02/17/21 17:24 98.1 Room Air Lab Results Laboratory Tests Test 02/17/21 17:35 02/17/21 18:29 02/17/21 18:45 White Blood Count 11.2 x10^3/uL (4.0-11.0) H Red Blood Count 4.39 x10^6/uL (4.30-5.70) Hemoglobin 11.8 g/dL (13.0-17.5) L Hematocrit 37.6 % (39.0-53.0) L Mean Corpuscular Volume 86 fL (79-100) Mean Corpuscular Hemoglobin 27 pg (25-35) Mean Corpuscular Hemoglobin Concent 31 g/dL (31-37) Red Cell Distribution Width 18.3 % (11.5-14.5) H Platelet Count 225 x10^3/uL (140-400) Neutrophils (%) (Auto) 83 % (31-73) H Lymphocytes (%) (Auto) 7 % (24-48) L Monocytes (%) (Auto) 8 % (0-9) Eosinophils (%) (Auto) 2 % (0-3) Basophils (%) (Auto) 1 % (0-3) Neutrophils # (Auto) 9.2 x10^3uL (1.8-7.7) H Lymphocytes # (Auto) 0.8 x10^3/uL (1.0-4.8) L Monocytes # (Auto) 0.8 x10^3/uL (0.0-1.1) Eosinophils # (Auto) 0.2 x10^3/uL (0.0-0.7) Basophils # (Auto) 0.1 x10^3/uL (0.0-0.2) Sodium Level 142 mmol/L (136-145) Potassium Level 4.2 mmol/L (3.5-5.1) Chloride Level 105 mmol/L (98-107) Carbon Dioxide Level 30 mmol/L (21-32) Anion Gap 7 (6-14) Blood Urea Nitrogen 12 mg/dL (8-26) Creatinine 1.0 mg/dL (0.7-1.3) Estimated GFR (Cockcroft-Gault) 71.7 BUN/Creatinine Ratio 12 (6-20) Glucose Level 121 mg/dL (70-99) H Calcium Level 8.9 mg/dL (8.5-10.1) Total Bilirubin 0.6 mg/dL (0.2-1.0) Aspartate Amino Transferase (AST) 13 U/L (15-37) L Alanine Aminotransferase (ALT) 15 U/L (16-63) L Alkaline Phosphatase 96 U/L (46-116) Creatine Kinase 28 U/L (39-308) L Creatine Kinase MB (Mass) 0.9 ng/mL (0.0-3.6) Creatine Kinase MB Relative Index 3.2 % (0-4) Troponin I Quantitative < 0.017 ng/mL (0-0.055) VX-Tbn-D-Type Natriuretic Peptide 4440 pg/mL (0-449) H Total Protein 6.6 g/dL (6.4-8.2) Albumin 3.1 g/dL (3.4-5.0) L Albumin/Globulin Ratio 0.9 (1.0-1.7) L SARS-CoV-2 Antigen (Rapid) Negative (NEGATIVE) D-Dimer (Lety) 0.73 mg/L (0.00-0.50) H (ELIECER RDZ APRN) EKG EKG EKG shows atrial fibrillation controlled rate 91 bpm QTc interval 0.469, no acute STEMI, no ACS, no acute ischemia appreciated, EKG interpreted by ED attending physician Dr. Whitley. (ELIECER RDZ APRN) Radiology/Procedures Radiology/Procedures PATIENT: SHIVAM CASTILLO ACCOUNT: [id number] : 1940 LOCATION: ER AGE: 80 SEX: M EXAM STATUS: REG ER ORD. PHYSICIAN: ELIECER RDZ APRN REASON: Shortness of breath PROCEDURE: CHEST AP ONLY XR CHEST 1V INDICATION: Shortness of breath COMPARISON STUDY: 11/25/2020. FINDINGS: Lungs: Normal lung volume. Patchy bilateral opacities. Pleura: No pleural effusion or pneumothorax. Heart and Mediastinum: Cardiomegaly. Tortuous atherosclerotic aorta. IMPRESSION: Patchy bilateral opacities, likely multifocal infection or edema. Electronically signed by: Chadd Zabala MD (02/17/2021 6:39 PM) [facility] (ELIECER RDZ APRN) Heart Score C/O Chest Pain: No Risk Factors: Risk Factors: DM, Current or recent (<one month) smoker, HTN, HLP, family history of CAD, obesity. Risk Scores: Risk Factors: DM, Current or recent (<one month) smoker, HTN, HLP, family history of CAD, obesity. (ELIECER RDZ APRN) Course & Med Decision Making Course & Med Decision Making Pertinent Labs and Imaging studies reviewed. (See chart for details) 80-year-old male, vital signs reviewed, presents respiratory concerning slow onset of increased shortness of breath over the past month. Physical examination concerning for cardiorespiratory process, will order cardiorespiratory work-up. Will order COVID-19 testing. Patient's COVID-19 rapid test negative, patient's EKG and lab work equivocal however chest x-ray does show concerning signs of pulmonary edema, patient's BNP is slightly elevated at 4400, upon extensive review of patient's past lab work, patient's BNP is usually at 1000. Discussed with patient admission to the hospital, patient states he would rather try to increase his Lasix at home as he has done this in the past with some success, patient reports he will call his doctor first thing on Friday and to review his medications with him. Discussed with patient will give him extra dose of Lasix tonight, extra dose of potassium medication tonight, doubling his Lasix dose and potassium medication tomorrow, calling his primary care Dr. Jerez on Friday to review ED discharge planning and how he feels. Strict return to ER precautions or concerns to include an onset of chest pain, sudden onset of increased shortness of breath, or other concerns. Patient is amenable to ED discharge planning. Discussed with the patient all findings and diagnostic testing as well as the need to follow-up with their primary care provider for further evaluation and treatment or return to the ED if any new or worsening symptoms. Strict return precautions were also discussed at length, the patient voiced understanding and agreement with the discharge planning. The patient was nontoxic in appearance, in no apparent distress, and hemodynamically stable at the time of disposition. (ELIECER RDZ APRN) Dragon Disclaimer Dragon Disclaimer This electronic medical record was generated, in whole or in part, using a voice recognition dictation system. (ELIECER RDZ APRN) Departure Departure: Impression: Primary Impression: COPD exacerbation Disposition: 01 HOME / SELF CARE / HOMELESS Condition: GOOD Referrals: DENNIS JEREZ MD (PCP) Patient Instructions: Heart Failure Additional Instructions: You were seen today in the emergency department for a gradual onset of shortness of breath over the past month or longer. A extensive cardiorespiratory work-up was done today in the emergency department along with COVID-19 testing. Your rapid Covid testing was negative. Your cardiorespiratory work-up was nonconcerning for acute heart attack or pneumonia however it did show some increase pulmonary congestion. We had discussed admission to the hospital however you have elected to try home care by increasing your Lasix dose tomorrow. I am giving you an extra dose tonight along with an extra dose of your potassium before you go home, please double your Lasix dose tomorrow along with your potassium dose as well. As we discussed call Dr. Jerez first thing Friday to review how you are feeling and to discuss whether or not you need to double your Lasix for a second day in a row, this is a must. Please return to the emergency department immediately for an increase of shortness of breath, syncopal episodes, onset of chest pain, or other concerns. Thank you for visiting our Emergency Department. It was a pleasure taking care of you today in the emergency department and we appreciate you trusting us with your care. If any additional problems come up don't hesitate to return to visit us. Please follow up with your primary care provider so they can plan additional care if needed and know about the problem that you had. If symptoms worsen come back to the Emergency Department. Any concerning symptoms that start such as chest pain, shortness of air, weakness or numbness on one side of the body, running high fevers or any other concerning symptoms return to the ER. EMERGENCY DEPARTMENT GENERAL DISCHARGE INSTRUCTIONS Thank you for coming to [facility] (ED) today and trusting us with you care. We trust that you had a positivie experience in our Emergency Department. If you wish to speak to the department management, you may call the director at [phone]. YOUR FOLLOW UP INSTRUCTIONS ARE FOLLOWS: 1. Do you have a private Doctor? If you do not have a private doctor, please ask for a resource list of physicians or clinics that may be able to assist you with follow up care. 2. The Emergency Physician has interpreted your x-rays. The X-Ray specialist will also review them. If there is a change in the findings, you will be notified in 48 hours when at all possible. 3. A lab test or culture has been done, your results will be reviewed and you will be notified if you need a change in treatment. ADDITIONAL INSTRUCTIONS AND INFORMATION: 1. Your care today has been supervised by a physician who is specially trained in emergency care. Many problems require more than one evaluation for a complete diagnosis and treatment. We recommend that you schedule your follow up appointment as recommended to ensure complete treatment of you illness or injury. If you are unable to obtain follow up care and continue to have a problem, or if your condition worsens, we recommend that you return to the ED. 2. We are not able to safely determine your condition over the phone nor are we able to give sound medical advice over the phone. For these safety reasons, if you call for medical advice we will ask you to come to the ED for further evaluation. 3. If you have any questions regarding these discharge instructions please call the ED at [phone]. SAFETY INFORMATION: In the interest of safety, wellness, and injury prevention; we encourage you to wear your sealbelt, if you smoke; quite smoking, and we encourage family to use a protective helmet for bicycling and other sporting events that present an increased risk for head injury. IF YOUR SYMPTOMS WORSEN OR NEW SYMPTOMS DEVELOP, OR YOU HAVE CONCERNS ABOUT YOUR CONDITION; OR IF YOUR CONDITION WORSENS WHILE YOU ARE WAITING FOR YOUR FOLLOW UP APPOINTMENT; EITHER CONTACT YOUR PRIMARY CARE DOCTOR, THE PHYSICIAN WHOSE NAME AND NUMBER YOU WERE GIVEN, OR RETURN TO THE ED IMMEDIATELY. Attending Signature Attending Signature I have participated in the care of this patient and I have reviewed and agree with all pertinent clinical information above including history, exam, and recommendations. (QASIM BROWER MD) ELIECER RDZ APRN Feb 17, 2021 21:43 QASIM BROWER MD Feb 18, 2021 17:13
[2021-02-17] MEDS ORDERED: POTASSIUM CHLORIDE 20 MEQ TABLET.ER. PO ONE (22:00)
== END 2021-02-17 21:47 | disposition home or self-care (01) ==
LOC: ER 17:24
DX: J44.1 Chronic obstructive pulmonary disease with (acute) exacerbation (principal); Z20.822 Contact with and (suspected) exposure to COVID-19
CPT/HCPCS: 36415; 71045; 80053; 82553; 83880; 84484; 85025; 85379; 87426; 93005; 99285; C9803; U0003

== ENCOUNTER 2021-03-12 23:15 | Emergency (ER) | payer MEDICARE, OTHER ==
[~2021-03-12] VITALS: Ht 180.3 cm; Wt 119.5 kg
[~2021-03-12 23:15] MED LIST changes: -CITA40TA5 PO; +CITA40TA6 PO
--- NOTE | 2021-03-13 00:10 | PHYS DOC ---
Past History Past Medical History: A-Fib, CAD, COPD, Depression, Hypertension Additional Past Medical Histor: BPH, COVID (DESTINI MAS MEDICAL CODING TECHNICIAN) Past Surgical History: Other Additional Past Surgical Histo: SLEEP APNEA SURGERY; CARDIAC STENTS (DESTINI MAS MEDICAL CODING TECHNICIAN) Smoking: Less than 1pk/day Alcohol Use: Occasionally (DESTINI MAS MEDICAL CODING TECHNICIAN) Adult General Chief Complaint Chief Complaint: MECHANICAL FALL HPI HPI Patient is a 80-year-old male patient with history of A. fib on Eliquis, hypertension, COPD current smoker on oxygen 3 L prn, hypertension, who presents to the ED today to be evaluated after falling. Patient states he had had a couple "drinks" of alcohol, he states he is supposed to use his cane which he was not using. He states he was walking into his house, tripped and fell. He states he hit his face on the ground. Denies any loss of consciousness. Complaining of left shoulder pain, pain between his shoulder blades, and an abrasion on the nose. (DESTINI MAS MEDICAL CODING TECHNICIAN) Review of Systems Review of Systems Constitutional: Denies fever or chills [] Eyes: Denies change in visual acuity, redness, or eye pain [] HENT: Denies nasal congestion or sore throat [] Respiratory: Denies cough or shortness of breath [] Cardiovascular: No additional information not addressed in HPI [] GI: Denies abdominal pain, nausea, vomiting, bloody stools or diarrhea [] : Denies dysuria or hematuria [] Musculoskeletal: Reports neck pain, pain between shoulder blades, left shoulder pain Integument: Denies rash or skin lesions [] Neurologic: Denies headache, focal weakness or sensory changes [] All other systems were reviewed and found to be within normal limits, except as documented in this note. (DESTINI MAS MEDICAL CODING TECHNICIAN) Allergies Allergies Allergies Coded Allergies Type Severity Reaction Last Updated Verified No Known Drug Allergies 11/12/19 No (DESTINI MAS MEDICAL CODING TECHNICIAN) Physical Exam Physical Exam Constitutional: Obese patient, no acute distress, non-toxic appearance. [] HENT: Normocephalic, bilateral external ears normal, oropharynx moist, no oral exudates, nose normal. [] Eyes: PERRLA, EOMI, conjunctiva normal, no discharge. [] Neck: Normal range of motion, diffuse paraspinal muscle tenderness posterior cervical spine, no midline cervical spine tenderness, supple, no stridor. [] Cardiovascular:Heart rate regular rhythm Lungs & Thorax: Bilateral breath sounds clear to auscultation [] Abdomen: Bowel sounds normal, soft, no tenderness, no masses, no pulsatile masses. [] Skin: Bruising noted on the tip of the nose Back: No tenderness, no CVA tenderness. [] Extremities: Tenderness on palpation on the left shoulder, limited range of motion to the left shoulder due to pain. Range of motion to the left fingers. Adequate radial, medial, ulnar sensation to the left fingers. +2 left radial pulse. Cap refill less than 2 seconds in left fingers. Neurologic: Alert and oriented X 3, normal motor function, normal sensory function, no focal deficits noted. Cranial nerves II through XII are intact Psychologic: Affect normal, judgement normal, mood normal. [] (DESTINI MAS APRN) Current Patient Data Vital Signs Vital Signs Date Time Temp Pulse Resp B/P (MAP) Pulse Ox O2 Delivery O2 Flow Rate FiO2 03/12/21 23:16 98.5 89 18 104/67 (79) 95 Room Air (DESTINI MAS MEDICAL CODING TECHNICIAN) EKG EKG [] (DESTINI MAS APRN) EKG My interpretation of EKG shows a tachycardia 108 bpm. Does have irregular rate and rhythm. No obvious P waves. Overall rhythm consistent with A. fib. Does have low voltage in limb leads. No findings acute STEMI with contralateral changes. Time of EKG is 136 hours My interpretation of EKG #2 shows a tachycardia at 107 bpm. There is regular rate and rhythm. Overall morphology appears to be A. fib. Low voltage limb leads. Does have fascicular block. No significant interval change from earlier EKG time of this EKG is 0319 hrs. (QASIM BROWER MD) Radiology/Procedures Radiology/Procedures [] (DESTINI MAS APRN) Radiology/Procedures [address] [address] IMAGING REPORT Signed PATIENT: SHIVAM CASTILLO ACCOUNT: [id number] : 1940 LOCATION: ER AGE: 80 SEX: M EXAM STATUS: REG ER ORD. PHYSICIAN: DESTINI MAS APRN REASON: fall PROCEDURE: PORTABLE CHEST 1V XR SHOULDER_LEFT 2+ VIEWS, XR CHEST 1V Clinical History: Reason: fall / Spl. Instructions: / History: Technique: AP view of the chest was obtained at 03/12/2021 11:53 PM. Comparison: February 17, 2021. Findings: The heart is borderline enlarged. Prominence previously and is consistent with ectatic vasculature. The pulmonary vessels are top normal limits in size. There is mild patchy opacity in the left lung base and blunting of the costophrenic angles. Impression: Basal infiltrates likely discoid atelectasis. Possible tiny pleural effusions. End impression Three views left shoulder History: pain Internally and externally rotated AP of shoulder obtained, as well as "Y" view. The glenohumeral relationship is normal. The visualized osseous structures appear normal. Impression: No acute findings. end impression Electronically signed by: Shruthi Hardin III, MD (03/13/2021 2:26 AM) [facility] DICTATED AND SIGNED BY: SHRUTHI HARDIN III, MD DATE: 03/13/21222 CC: QASIM BROWER MD; DESTINI MAS APRN; DENNIS JEREZ MD ~[facility] [address] [place] [address] IMAGING REPORT Signed PATIENT: SHIVAM CASTILLO ACCOUNT: [id number] : 1940 LOCATION: ER AGE: 80 SEX: M EXAM STATUS: REG ER ORD. PHYSICIAN: DESTINI MAS APRN REASON: fall PROCEDURE: CT THORACIC SPINE WO CONTRAST CT thoracic spine without contrast History: Reason: fall / Spl. Instructions: / History: Axial helical images of the thoracic spine were obtained without contrast. Axial, coronal and sagittal reconstruction was performed. Findings: The vertebral bodies are aligned. There is no loss of vertebral body stature. There is marginal spurring at a few endplates and there is anterior osteophyte formation and mild kyphosis. Evaluation of the central canal is limited without contrast. There is no evidence of significant central or neuroforaminal stenosis. Impression: No acute findings. [facility] Compliance Statement: One or more of the following individualized dose reduction techniques were utilized for this examination: 1. Automated exposure control 2. Adjustment of the mA and/or kV according to patient size 3. Use of iterative reconstruction technique Electronically signed by: Shruthi Hardin III, MD (03/13/2021 1:48 AM) [facility] DICTATED AND SIGNED BY: SHRUTHI HARDIN III, MD DATE: 03/13/21144 CC: QASIM BROWER MD; DESTINI MAS APRN; DENNIS JEREZ MD ~[facility] [address] [address] IMAGING REPORT Signed PATIENT: SHIVAM CASTILLO ACCOUNT: [id number] : 1940 LOCATION: ER AGE: 80 SEX: M EXAM STATUS: REG ER ORD. PHYSICIAN: DESTINI MAS APRN REASON: fall PROCEDURE: SHOULDER 2+V LEFT XR SHOULDER_LEFT 2+ VIEWS, XR CHEST 1V Clinical History: Reason: fall / Spl. Instructions: / History: Technique: AP view of the chest was obtained at 03/12/2021 11:53 PM. Comparison: February 17, 2021. Findings: The heart is borderline enlarged. Prominence previously and is consistent with ectatic vasculature. The pulmonary vessels are top normal limits in size. There is mild patchy opacity in the left lung base and blunting of the costophrenic angles. Impression: Basal infiltrates likely discoid atelectasis. Possible tiny pleural effusions. End impression Three views left shoulder History: pain Internally and externally rotated AP of shoulder obtained, as well as "Y" view. The glenohumeral relationship is normal. The visualized osseous structures appear normal. Impression: No acute findings. end impression Electronically signed by: Shruthi Hardin III, MD (03/13/2021 2:26 AM) [facility] DICTATED AND SIGNED BY: SHRUTHI HARDIN III, MD DATE: 03/13/21222 CC: QASIM BROWER MD; DESTINI MAS APRN; DENNIS JEREZ MD ~[facility]0 [address] [address] IMAGING REPORT Signed PATIENT: SHIVAM CASTILLO ACCOUNT: [id number] : 1940 LOCATION: ER AGE: 80 SEX: M EXAM STATUS: REG ER ORD. PHYSICIAN: DESTINI MAS APRN REASON: fall PROCEDURE: SHOULDER 2+V LEFT XR SHOULDER_LEFT 2+ VIEWS, XR CHEST 1V Clinical History: Reason: fall / Spl. Instructions: / History: Technique: AP view of the chest was obtained at 03/12/2021 11:53 PM. Comparison: February 17, 2021. Findings: The heart is borderline enlarged. Prominence previously and is consistent with ectatic vasculature. The pulmonary vessels are top normal limits in size. There is mild patchy opacity in the left lung base and blunting of the costophrenic angles. Impression: Basal infiltrates likely discoid atelectasis. Possible tiny pleural effusions. End impression Three views left shoulder History: pain Internally and externally rotated AP of shoulder obtained, as well as "Y" view. The glenohumeral relationship is normal. The visualized osseous structures appear normal. Impression: No acute findings. end impression Electronically signed by: Shruthi Hardin III, MD (03/13/2021 2:26 AM) [facility] DICTATED AND SIGNED BY: SHRUTHI HARDIN III, MD DATE: 03/13/213 CC: QASIM BROWER MD; DESTINI MAS APRN; DENNIS JEREZ MD ~[facility] [address] [address] IMAGING REPORT Signed PATIENT: SHIVAM CASTILLO ACCOUNT: [id number] : 1940 LOCATION: ER AGE: 80 SEX: M EXAM STATUS: REG ER ORD. PHYSICIAN: DESTINI MAS APRN REASON: fall PROCEDURE: CT MAXILLOFACIAL WO CONTRAST CT Head W/O Contrast: History: Reason: fall / Spl. Instructions: / History: Comparison: none Axial images were obtained without contrast. There is marked diffuse atrophy. There is no mass effect, extraaxial fluid collections or hydrocephalus. There is no focal loss of salamanca-white matter distinction to suggest acute ischemia, i.e. stroke. There is a solid 4.1 x 3.2 cm mass in the left parotid. Impression: 1. 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 If the patient has no known diagnosis a ultrasound-guided fine-needle aspiration could be performed as an outpatient. 2. Moderate diffuse cerebral atrophy. No acute intracranial findings. End impression CT maxillofacial without contrast History: Pain status post fall Axial helical images of the face were obtained without contrast. Axial and coronal reconstruction was performed. FINDINGS: There is a coiling of the nasal septum and there is a mildly displaced fracture of the right nasal ala. There is blood within the ethmoid air cells and there is a small polyp versus retention cyst posteriorly in the right maxillary sinus. T he right ostiomeatal complex is occluded. The solid mass in the left parotid is again seen. Impression: 1. Acute buckling fracture of the nasal septum. 2. Displaced fracture of the right nasal ala. 3. See CT head regarding a left parotid mass. End impression CT C-Spine without contrast: Clinical History: Reason: fall / Spl. Instructions: / History: Technique: Axial helical images of the cervical spine were obtained without contrast, axial coronal and sagittal reconstruction was performed. Findings: There is no loss of vertebral body stature. There is no prevertebral soft tissue swelling. The vertebral bodies are well aligned. There is straightening of the normal cervical lordosis which can be positional or could be chronic. The C1-C2 relationship is normal. The visualized osseous structures appear normal. Evaluation of the central canal is limited without contrast. There is multiple posterior disc bulges resulting in flattening of the thecal sac. There does not appear to be gross flattening of the cervical cord. There is moderate narrowing of multiple neuroforamen. There is a mildly enlarged subclavian lymph nodes on the left. Impression: 1. Mildly enlarged subclavian lymph nodes on the left. Metastatic cancer is possible. 2. No evidence of acute fracture or malalignment of the C-spine. Clinical correlation suggested. End impression PQRS Compliance Statement: One or more of the following individualized dose reduction techniques were utilized for this examination: 1. Automated exposure control 2. Adjustment of the mA and/or kV according to patient size 3. Use of iterative reconstruction technique Electronically signed by: Shruthi Hardin III, MD (03/13/2021 2:01 AM) [facility] DICTATED AND SIGNED BY: SHRUTHI HARDIN III, MD DATE: 03/13/21148 CC: QASIM BROWER MD; DESTINI MAS APRN; DENNIS JEREZ MD ~M[facility]0 [address] [address] IMAGING REPORT Signed PATIENT: SHIVAM CASTILLO ACCOUNT: [id number] : 1940 LOCATION: ER AGE: 80 SEX: M EXAM STATUS: REG ER ORD. PHYSICIAN: DESTINI MAS APRN REASON: fall PROCEDURE: CT LUMBAR SPINE WO CONTRAST CT lumbar spine without contrast History: Pain status post fall Axial helical images of the lumbar spine were obtained without contrast. Axial, coronal and sagittal reconstruction was performed. Findings: The vertebral bodies are aligned. There is no loss of vertebral body stature. Evaluation of the central canal is limited without contrast. There is marginal spurring at endplates. Resultant diffuse disc ossific ridges and hypertrophy assessment flavum results in moderate central stenosis at L2-L3 and L3-L4 and L4-L5. There is moderate narrowing of multiple neuroforamen below lower legs and nerve roots of is loss of fat around the exiting nerve root on the left at L3-L4. 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 No acute findings. End impression PQRS Compliance Statement: One or more of the following individualized dose reduction techniques were utilized for this examination: 1. Automated exposure control 2. Adjustment of the mA and/or kV according to patient size 3. Use of iterative reconstruction technique Electronically signed by: Shruthi Hardin III, MD (03/13/2021 2:05 AM) [facility] DICTATED AND SIGNED BY: SHRUTHI HARDIN III, MD DATE: 03/13/21200 CC: QASIM BROWER MD; DESTINI MAS APRN; DENNIS JEREZ MD ~MTH0 [address] [address] IMAGING REPORT Signed PATIENT: ELIECER MCFARLANDOUNT: [id number] : 07/14/1965 LOCATION: ER AGE: 55 SEX: M EXAM STATUS: PRE ER ORD. PHYSICIAN: QASIM BROWER MD REASON: SYNCOPE, OMNI 350, 100ml PROCEDURE: CT ANGIOGRAPHY CHEST CTA Chest with contrast: Clinical History: Syncope Shortness of breath. Axial helical images of the chest were obtained after the administration of 100 cc of IV Omni 350 and timed appropriately for a pulmonary arterial study. Conventional axial reconstruction was performed in addition to coronal, sagittal and bilateral oblique MIP (maximum intensity projection). This study was ordered to detect possible pulmonary embolism. There are no filling defects to suggest pulmonary embolism. The lungs and pleural margins are clear. There is no mediastinal or hilar lymphadenopathy. The thoracic aorta appears normal. Impression: 1. No evidence of pulmonary embolism. 2. No significant findings. PQRS Compliance Statement: One or more of the following individualized dose reduction techniques were utilized for this examination: 1. Automated exposure control 2. Adjustment of the mA and/or kV according to patient size 3. Use of iterative reconstruction technique Electronically signed by: Shruthi Hardin III, MD (03/13/2021 1:01 AM) [facility] DICTATED AND SIGNED BY: SHRUTHI HARDIN III, MD DATE: 03/13/21 0058 CC: DENNIS WHITTEN DO; QASIM BROWER MD ~MTH0 0 (QASIM BROWER MD) Heart Score C/O Chest Pain: N/A Risk Factors: Risk Factors: DM, Current or recent (<one month) smoker, HTN, HLP, family history of CAD, obesity. Risk Scores: Risk Factors: DM, Current or recent (<one month) smoker, HTN, HLP, family history of CAD, obesity. (DESTINI MAS APRN) Course & Med Decision Making Course & Med Decision Making Pertinent Labs and Imaging studies reviewed. (See chart for details) This is a 80-year-old male patient presenting to the ED today to be evaluated for admission. Patient tripped on his face. No loss of consciousness. Awaiting imaging. 0100 care transferred to (DESTINI MAS APRN) Course & Med Decision Making See Mouna note prior shift changes. Reviewed labs and radiology findings with Pt. Pt. to not blow nose for 3 to 4 days. May sniff. Follow up with ENT. Followup with primary. Strongly recommend biopsy or removal of parotid mass and subclavian lymph node for definitive diagnosis. Risk of cancer discussed at length. Patient is to return at any time. Counseled patient on alcohol abuse or excess. Patient declined admission at this time requested discharge home. Risk and benefits discussed. Patient 6 exhibits UCAR capacity. Impression: 1. Trip and Fall 2. Head and Nose Contusion 3. Epistaxis 4. Alcohol Abuse-currently alcohol 52 5. Mild leukocytosis 13.7 with no differential 6. Mild anemia 12.4 hemoglobin 7. Rt. Nasal Fracture / Buckled Septum 8. Subclavian Nodule Lt. 9. Lt. Parotid Mass 10.Multilevel discogenic dz, with neuroforamen narrowing and central canal stenosis (QASIM BROWER MD) Dragon Disclaimer Dragon Disclaimer This electronic medical record was generated, in whole or in part, using a voice recognition dictation system. (DESTINI MAS MEDICAL CODING TECHNICIAN) Departure Departure: Referrals: DENNIS JEREZ MD (PCP) Dragon Disclaimer This chart was dictated in whole or in part using Voice Recognition software in a busy, high-work load, and often noisy Emergency Department environment. It may contain unintended and wholly unrecognized errors or omissions. (QASIM BROWER MD) Attending Signature Attending Signature I have participated in the care of this patient and I have reviewed and agree with all pertinent clinical information above including history, exam, and recommendations. (QASIM BROWER MD) Attending Signature Attending Signature I have participated in the care of this patient and I have reviewed and agree with all pertinent clinical information above including history, exam, and recommendations. (QASIM BROWER MD) DESTINI MAS APRN Mar 13, 2021 00:10 QASIM BROWER MD Mar 13, 2021 01:01
[2021-03-13] MEDS ORDERED: ACETAMINOPHEN 500 MG TABLET PO ONE (01:00)
[2021-03-13] MEDS ORDERED: DIPH,PERTUSS(ACELL),TET VAC/PF 0.5 ML SYRINGE. VAX IM ONE (01:00)
[2021-03-13] MEDS ORDERED: CYCLOBENZAPRINE 10 MG TABLET. PO ONE (01:00)
--- NOTE | 2021-03-13 01:44 | EKG ---
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
--- NOTE | 2021-03-13 01:51 | RAD ---
CT thoracic spine without contrast History: Reason: fall / Spl. Instructions: / History: Axial helical images of the thoracic spine were obtained without contrast. Axial, coronal and sagitta l reconstruction was performed. Findings: The vertebral bodies are aligned. There is no loss of vertebral body stature. There is marginal spurr ing at a few endplates and there is anterior osteophyte formation and mild kyphosis. Evaluation of the central canal is limited without contrast. There is no evidence of significant cent ral or neuroforaminal stenosis. Impression: No acute findings. PQRS Compliance Statement: One or more of the following individualized dose reduction techniques were utilized for this examinat ion: 1. Automated exposure control 2. Adjustment of the mA and/or kV according to patient size 3. Use of iterative reconstruction technique Electronically signed by: Niels Vigil III, MD (03/13/2021 1:48 AM) [facility]
--- NOTE | 2021-03-13 02:03 | RAD ---
CT Head W/O Contrast: History: Reason: fall / Spl. Instructions: / History: Comparison: none Axial images were obtained without contrast. There is marked diffuse atrophy. There is no mass effect, extraaxial fluid collections or hydrocepha trip. There is no focal loss of salamanca-white matter distinction to suggest acute ischemia, i.e. stroke. There is a solid 4.1 x 3.2 cm mass in the left parotid. Impression: 1. 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 If the patient has no known diagnosis a ultrasound-g uided fine-needle aspiration could be performed as an outpatient. 2. Moderate diffuse cerebral atrophy. No acute intracranial findings. End impression CT maxillofacial without contrast History: Pain status post fall Axial helical images of the face were obtained without contrast. Axial and coronal reconstruction was performed. FINDINGS: There is a coiling of the nasal septum and there is a mildly displaced fracture of the right nasal al a. There is blood within the ethmoid air cells and there is a small polyp versus retention cyst poste riorly in the right maxillary sinus. The right ostiomeatal complex is occluded. The solid mass in the left parotid is again seen. Impression: 1. Acute buckling fracture of the nasal septum. 2. Displaced fracture of the right nasal ala. 3. See CT head regarding a left parotid mass. End impression CT C-Spine without contrast: Clinical History: Reason: fall / Spl. Instructions: / History: Technique: Axial helical images of the cervical spine were obtained without contrast, axial coronal and sagittal reconstruction was performed. Findings: There is no loss of vertebral body stature. There is no prevertebral soft tissue swelling. The vert ebral bodies are well aligned. There is straightening of the normal cervical lordosis which can be p ositional or could be chronic. The C1-C2 relationship is normal. The visualized osseous structures ap pear normal. Evaluation of the central canal is limited without contrast. There is multiple posterio r disc bulges resulting in flattening of the thecal sac. There does not appear to be gross flattening of the cervical cord. There is moderate narrowing of multiple neuroforamen. There is a mildly enlarged subclavian lymph nodes on the left. Impression: 1. Mildly enlarged subclavian lymph nodes on the left. Metastatic cancer is possible. 2. No evidence of acute fracture or malalignment of the C-spine. Clinical correlation suggested. End impression PQRS Compliance Statement: One or more of the following individualized dose reduction techniques were utilized for this examinat ion: 1. Automated exposure control 2. Adjustment of the mA and/or kV according to patient size 3. Use of iterative reconstruction technique Electronically signed by: Niels Vigil III, MD (03/13/2021 2:01 AM) [facility]
--- NOTE | 2021-03-13 02:07 | RAD ---
CT lumbar spine without contrast History: Pain status post fall Axial helical images of the lumbar spine were obtained without contrast. Axial, coronal and sagittal reconstruction was performed. Findings: The vertebral bodies are aligned. There is no loss of vertebral body stature. Evaluation of the central canal is limited without contrast. There is marginal spurring at endplates. Resultant diffuse disc ossific ridges and hypertrophy assessment flavum results in moderate central stenosis at L2-L3 and L3-L4 and L4-L5. There is moderate narrowing of multiple neuroforamen below lower legs and nerve roots of is loss of f at around the exiting nerve root on the left at L3-L4. 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 No a cute findings. End impression PQRS Compliance Statement: One or more of the following individualized dose reduction techniques were utilized for this examinat ion: 1. Automated exposure control 2. Adjustment of the mA and/or kV according to patient size 3. Use of iterative reconstruction technique Electronically signed by: Niels Vigil III, MD (03/13/2021 2:05 AM) [facility]
[2021-03-13 02:11] LABS: BASO # 0.1 x10^3/uL (0.0-0.2); BASO % 1 % (0-3); EOS # 0.2 x10^3/uL (0.0-0.7); EOS % 2 % (0-3); HEMATOCRIT 38.7 % (39.0-53.0); HEMOGLOBIN 12.4 g/dL (13.0-17.5); LYMPH # 1.1 x10^3/uL (1.0-4.8); LYMPH % 8 % (24-48); MEAN CORPUSCULAR HEMOGLOBIN 27 pg (25-35); MEAN CORPUSCULAR HGB CONC 32 g/dL (31-37); MEAN CORPUSCULAR VOLUME 83 fL (79-100); MONO # 1.1 x10^3/uL (0.0-1.1); MONO % 8 % (0-9); NEUT # 11.2 x10^3uL (1.8-7.7); NEUT % 82 % (31-73); PLATELET COUNT 264 x10^3/uL (140-400); RED BLOOD COUNT 4.66 x10^6/uL (4.30-5.70); RED CELL DISTRIBUTION WIDTH 17.5 % (11.5-14.5); WHITE BLOOD COUNT 13.7 x10^3/uL (4.0-11.0)
[2021-03-13 02:16] LABS: BACTERIA,URINE 0 /HPF (0-FEW); BILIRUBIN,URINE NEG (NEG); CLARITY,URINE CLEAR; COLOR,URINE YELLOW; GLUCOSE,URINE NEG (NEG); NITRITE,URINE NEG (NEG); RBC,URINE 0 /HPF (0-2); SQUAMOUS EPITHELIAL CELL,UR OCC /LPF; UROBILINOGEN,URINE 0.2 mg/dL (0.2 mg/dL); WBC,URINE OCC /HPF (0-4)
[2021-03-13 02:19] LABS: CALCIUM 8.8 mg/dL (8.5-10.1); CREATININE 1.1 mg/dL (0.7-1.3); GFR 64.2; POTASSIUM 4.5 mmol/L (3.5-5.1)
[2021-03-13 02:20] LABS: BARBITURATES NEG (NEG); BENZODIAZEPINES NEG (NEG); CANNABINOIDS NEG (NEG); COCAINE NEG (NEG); METHADONE NEG (NEG); OPIATES NEG (NEG); PHENCYCLIDINE NEG (NEG)
[2021-03-13 02:22] LABS: AMPHETAMINE/METHAMPHETAMINE NEG (NEG)
[2021-03-13 02:25] LABS: ALBUMIN 3.2 g/dL (3.4-5.0); ALBUMIN/GLOBULIN RATIO 1.1 (1.0-1.7); TOTAL BILIRUBIN 0.5 mg/dL (0.2-1.0); TOTAL PROTEIN 6.2 g/dL (6.4-8.2)
--- NOTE | 2021-03-13 02:29 | RAD ---
XR SHOULDER_LEFT 2+ VIEWS, XR CHEST 1V Clinical History: Reason: fall / Spl. Instructions: / History: Technique: AP view of the chest was obtained at 03/12/2021 11:53 PM. Comparison: February 17, 2021. Findings: The heart is borderline enlarged. Prominence previously and is consistent with ectatic vasculature. T he pulmonary vessels are top normal limits in size. There is mild patchy opacity in the left lung bas e and blunting of the costophrenic angles. Impression: Basal infiltrates likely discoid atelectasis. Possible tiny pleural effusions. End impression Three views left shoulder History: pain Internally and externally rotated AP of shoulder obtained, as well as "Y" view. The glenohumeral relationship is normal. The visualized osseous structures appear normal. Impression: No acute findings. end impression Electronically signed by: Niels Vigil III, MD (03/13/2021 2:26 AM) [facility]
[2021-03-13 02:34] LABS: MAGNESIUM 2.2 mg/dL (1.8-2.4)
[2021-03-13] MEDS ORDERED: IOHEXOL 300 MG/ML 75 ML VIAL. IV ONE (03:15)
[2021-03-13] MEDS ORDERED: CONTRAST GIVEN. MC PRN (03:15)
--- NOTE | 2021-03-13 03:34 | EKG ---
[address] [address] Test Date: 2021-03-13 Test Time: 03:19:27 Pat Name: SHIVAM CASTILLO Department: Room: Gender: M Recreational Counselor: : 1940 Requested By: QASIM BROWER Order Number: [id number] Reading MD: Darius Lara Measurements Intervals [place] Rate: 107 P: SD: QRS: -34 QRSD: 86 T: 15 QT: 378 QTc: 511 Interpretive Statements ATRIAL FIBRILLATION Electronically Signed On 03-13-2021 14:16:40 OSTEOLOGY TEACHER by Darius Lara
--- NOTE | 2021-03-13 04:27 | RAD ---
CT chest abdomen and pelvis with contrast: History: Chest and epigastric discomfort Axial helical images of the chest abdomen and pelvis were obtained after the administration of 100 cc IV Isovue-370 contrast. Comparison: May 18, [address] OF THE CHEST WITH IV CONTRAST: There is no mediastinal lymphadenopathy or hematoma. There is a 7 mm pulmonary nodule again seen in the right lower lobe unchanged. There is patchy opacit y in the lung bases posteriorly which likely dependent changes. There are few small mediastinal lymph nodes which were seen previously. Lymphadenopathy: no Thoracic aorta: normal Impression: Stable appearance the chest. Recommend a 6 month follow-up CT chest without contrast to determine sta bility of the 7 mm pulmonary nodule. End Impression CT OF THE ABDOMEN AND PELVIS WITH IV CONTRAST: The gallbladder appears normal. The appendix is normal. Liver: Unremarkable Spleen: Unremarkable Pancreas: Unremarkable Adrenal Glands: Unremarkable Kidneys: Small cysts on the left Evaluation of stomach and bowel is limited without oral contrast. Lymphadenopathy: no. Free fluid: no. Free air: no. The bladder appears normal without extravasation of contrast. Impression: No acute findings. End impression PQRS Compliance Statement: One or more of the following individualized dose reduction techniques were utilized for this examinat ion: 1. Automated exposure control 2. Adjustment of the mA and/or kV according to patient size 3. Use of iterative reconstruction technique Electronically signed by: Niels Vigil III, MD (03/13/2021 4:25 AM) [facility]
[2021-03-13] MEDS ORDERED: MORPHINE SULFATE 10 MG/ML SYRINGE. ONE (04:40)
[2021-03-13] MEDS ORDERED: MORPHINE SULFATE 10 MG/ML SYRINGE. SQ ONE (04:45)
[2021-03-13 05:40] VITALS: BP 106/60
== END 2021-03-13 05:54 | disposition home or self-care (01) ==
LOC: ER 23:15
DX: S02.2XXA Fracture of nasal bones, initial encounter for closed fracture (principal); R04.0 Epistaxis; M25.512 Pain in left shoulder; D72.829 Elevated white blood cell count, unspecified; D64.9 Anemia, unspecified; R22.1 Localized swelling, mass and lump, neck; K11.8 Other diseases of salivary glands; I48.91 Unspecified atrial fibrillation; I10 Essential (primary) hypertension; J44.9 Chronic obstructive pulmonary disease, unspecified; I25.10 Atherosclerotic heart disease of native coronary artery without angina pectoris; F17.200 Nicotine dependence, unspecified, uncomplicated; W01.0XXA Fall on same level from slipping, tripping and stumbling without subsequent striking against object, initial encounter; Y93.01 Activity, walking, marching and hiking; Y92.89 Other specified places as the place of occurrence of the external cause; Y99.8 Other external cause status
CPT/HCPCS: 36415; 70450; 70486; 71045; 71260; 72125; 72128; 72131; 73030; 74177; 80053; 80307; 81001; 82553; 83735; 84484; 85025; 85610; 85730; 90471; 90715; 93005; 96372; 99285; G0480; J2270

== ENCOUNTER 2021-05-26 13:03 | Inpatient (IN) | payer MEDICARE, OTHER ==
[~2021-05-26] VITALS: Ht 180.3 cm; Wt 115.8 kg
[2021-05-26] MEDS ORDERED: IV NORMAL SALINE 1,000ML 1,000 ML IV ONE ×2 (14:00→16:15)
--- NOTE | 2021-05-26 14:11 | EKG ---
[address] [address] Test Date: 2021-05-26 Test Time: 14:03:01 Pat Name: SHIVAM CASTILLO Department: Room: Gender: M Manufacturing Intern: SARAHY : 1940 Requested By: GRECIA RIOS Order Number: [id number] Reading MD: Darius Lara Measurements Intervals [place] Rate: 100 P: SC: QRS: -43 QRSD: 96 T: -4 QT: 374 QTc: 486 Interpretive Statements ATRIAL FIBRILLATION PROLONGED QT Electronically Signed On 05-27-2021 9:21:49 FILM MAKER by Darius Lara
[2021-05-26 14:21] LABS: BASO # 0.1 x10^3/uL (0.0-0.2); BASO % 1 % (0-3); EOS % 0 % (0-3); HEMATOCRIT 44.4 % (39.0-53.0); HEMOGLOBIN 14.9 g/dL (13.0-17.5); LYMPH % 6 % (24-48); MEAN CORPUSCULAR HEMOGLOBIN 28 pg (25-35); MEAN CORPUSCULAR HGB CONC 34 g/dL (31-37); MEAN CORPUSCULAR VOLUME 83 fL (79-100); MONO # 1.5 x10^3/uL (0.0-1.1); MONO % 9 % (0-9); NEUT # 14.7 x10^3uL (1.8-7.7); NEUT % 85 % (31-73); PLATELET COUNT 324 x10^3/uL (140-400); RED BLOOD COUNT 5.38 x10^6/uL (4.30-5.70); RED CELL DISTRIBUTION WIDTH 17.3 % (11.5-14.5); WHITE BLOOD COUNT 17.4 x10^3/uL (4.0-11.0)
--- NOTE | 2021-05-26 14:24 | PHYS DOC ---
Past History Past Medical History: A-Fib, CAD, COPD, Depression, Hypertension Additional Past Medical Histor: BPH, COVID (GRECIA RIOS APRN) Past Surgical History: Other Additional Past Surgical Histo: SLEEP APNEA SURGERY; CARDIAC STENTS (GRECIA RIOS APRN) Smoking: Less than 1pk/day Alcohol Use: Occasionally (GRECIA RIOS APRN) General Adult EDM: Chief Complaint: FATIGUE HPI: HPI: Patient is an 80-year-old male who presents to the emergency department for a 3- day history of chills, fatigue, nausea, yellow productive cough and lightheadedness. Patient reports that the lightheadedness is with position changes. He denies shortness of breath, chest pain, headache, vomiting, abdominal pain. 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 Patient has a history of COPD, high cholesterol, hypertension, A. fib and cardiac stents. Patient is a current half pack per day smoker. (GRECIA RIOS APRN) Review of Systems: Review of Systems: Constitutional: negative unless reported in HPI Eyes: negative unless reported in HPI HENT: negative unless reported in HPI Respiratory: negative unless reported in HPI Cardiovascular: negative unless reported in HPI GI: negative unless reported in HPI : negative unless reported in HPI Musculoskeletal: negative unless reported in HPI Integument: negative unless reported in HPI Neurologic: negative unless reported in HPI Endocrine: negative unless reported in HPI Lymphatic: negative unless reported in HPI Psychiatric: negative unless reported in HPI (GRECIA RIOS APRN) Current Medications: Current Meds: Current Medications Medications (Trade) Dose Ordered Sig/Jacque Start Time Stop Time Status Last Admin Dose Admin Sodium Chloride 1,000 ml @ 1,000 mls/hr 1X ONCE 05/26/21 14:00 05/26/21 14:59 (GRECIA RIOS APRN) Allergies: Allergies: Allergies Coded Allergies Type Severity Reaction Last Updated Verified No Known Drug Allergies 11/12/19 No (GRECIA RIOS APRN) Physical Exam: PE: Constitutional: Well developed, well nourished, no acute distress, non-toxic appearance. [] HENT: Normocephalic, atraumatic, bilateral external ears normal, oropharynx moist, no oral exudates, nose normal. [] Eyes: PERRL, EOMI, conjunctiva normal, no discharge. [] Neck: Normal range of motion, no tenderness, supple, no stridor. [] Cardiovascular:Heart rate regular rhythm, no murmur [] Lungs & Thorax: Bilateral breath sounds clear to auscultation [] Abdomen: Bowel sounds normal, soft, no tenderness, no masses, no pulsatile masses. [] Skin: Warm, dry, no erythema, no rash. [] Back: Normal range of motion Extremities: No tenderness, no cyanosis, no clubbing, ROM intact, no edema. [] Neurologic: Alert and oriented X 3, normal motor function, normal sensory function, no focal deficits noted. [] Psychologic: Affect normal, judgement normal, mood normal. [] (GRECIA RIOS APRN) Current Patient Data: Labs: Laboratory Tests Test 05/26/21 14:00 05/26/21 15:12 White Blood Count 17.4 x10^3/uL Red Blood Count 5.38 x10^6/uL Hemoglobin 14.9 g/dL Hematocrit 44.4 % Mean Corpuscular Volume 83 fL Mean Corpuscular Hemoglobin 28 pg Mean Corpuscular Hemoglobin Concent 34 g/dL Red Cell Distribution Width 17.3 % Platelet Count 324 x10^3/uL Neutrophils (%) (Auto) 85 % Lymphocytes (%) (Auto) 6 % Monocytes (%) (Auto) 9 % Eosinophils (%) (Auto) 0 % Basophils (%) (Auto) 1 % Neutrophils # (Auto) 14.7 x10^3uL Lymphocytes # (Auto) 1.0 x10^3/uL Monocytes # (Auto) 1.5 x10^3/uL Eosinophils # (Auto) 0.0 x10^3/uL Basophils # (Auto) 0.1 x10^3/uL Segmented Neutrophils % 85 % Lymphocytes % 7 % Monocytes % 8 % Platelet Estimate Adequate Sodium Level 131 mmol/L Potassium Level 2.6 mmol/L Chloride Level 85 mmol/L Carbon Dioxide Level 33 mmol/L Anion Gap 13 Blood Urea Nitrogen 55 mg/dL Creatinine 2.3 mg/dL Estimated GFR (Cockcroft-Gault) 27.4 BUN/Creatinine Ratio 24 Glucose Level 182 mg/dL Calcium Level 9.9 mg/dL Total Bilirubin 1.0 mg/dL Aspartate Amino Transf (AST/SGOT) 30 U/L Alanine Aminotransferase (ALT/SGPT) 20 U/L Alkaline Phosphatase 125 U/L Troponin I High Sensitivity 14 ng/L Total Protein 8.2 g/dL Albumin 3.9 g/dL Albumin/Globulin Ratio 0.9 Influenza Type A (Rapid) Negative Influenza Type B (Rapid) Negative SARS-CoV-2 Antigen (Rapid) Negative Magnesium Level 3.1 mg/dL Current Medications Medications (Trade) Dose Ordered Sig/Jacque Route PRN Reason Start Time Stop Time Status Last Admin Dose Admin Sodium Chloride 1,000 ml @ 1,000 mls/hr 1X ONCE IV 05/26/21 14:00 05/26/21 14:59 DC 05/26/21 15:12 Potassium Chloride 100 ml @ 100 mls/hr Q1H IV 05/26/21 16:00 05/26/21 19:59 UNV (GRECIA RIOS APRN) EKG: EKG: EKG performed by ER staff at 1403 shows A. fib with a rate of 100, QTc 46, no STEMI read by Dr. Barrios at 1409 [] (GRECIA RIOS APRN) Radiology/Procedures: Radiology/Procedures: []REASON: cough, pui PROCEDURE: PORTABLE CHEST 1V EXAM: Chest, single view. HISTORY: Cough. COMPARISON: 03/13/2021 FINDINGS: A frontal view of the chest is obtained. There is no infiltrate, pleural effusion or pneumothorax. The heart is normal in size. IMPRESSION: No acute pulmonary finding. Electronically signed by: Flora Rangel MD (05/26/2021 3:26 PM) [facility] DICTATED AND SIGNED BY: FLORA RANGEL MD DATE: 05/26/21 1526 CC: GRECIA RIOS APRN; DENNIS JEREZ MD ~MTH0 0 (GRECIA RIOS APRN) Heart Score: C/O Chest Pain: No Risk Factors: Risk Factors: DM, Current or recent (<one month) smoker, HTN, HLP, family history of CAD, obesity. Risk Scores: Score 0 - 3: 2.5% MACE over next 6 weeks - Discharge Home Score 4 - 6: 20.3% MACE over next 6 weeks - Admit for Clinical Observation Score 7 - 10: 72.7% MACE over next 6 weeks - Early Invasive Strategies (GRECIA RIOS APRN) Course & Med Decision Making: Course & Med Decision Making Pertinent Labs and Imaging studies reviewed. (See chart for details) [] Patient presents to the emergency department for chills, fatigue, nausea, lightheadedness with position changes and a productive cough that started 3 days ago. Patient has a positive Covid exposure. Patient's vital signs are stable. Work-up in the ER consisted of blood work, EKG, urinalysis, COVID and influenza testing. Patient treated with IV fluids to help with orthostatic hypotension. Patient was noted to have leukocytosis with a white blood cell count of 17.4. Chest x-ray did not show any pneumonia. It is possible that patient source of infection is in his urine and a urinalysis is pending at this time. Patient's potassium was 2.6 this was replaced in the emergency department with p.o. and IV supplementation. Patient's BUN was 55 and his creatinine was 2.3. Patient's baseline creatinine is 1.0-1.1 indicating acute kidney injury. Patient's influenza and Covid testing was negative. I discussed patient's findings with him and the need to be admitted for MADDY and hypokalemia and he is agreeable. I discussed these findings with Dr. Warner who agreed to admit the patient under his services. IV fluids and potassium supplementation was ordered. ER bridge orders placed at this time 1611. (GRECIA RIOS APRN) Dragon Disclaimer: Dragon Disclaimer: This electronic medical record was generated, in whole or in part, using a voice recognition dictation system. (GRECIA RIOS APRN) Attending Co-Sign The patient was seen and interviewed as well as examined at the bedside. The chart was reviewed. The case was discussed. Agree with the plan of care. (KVNG BARRIOS DO) Departure Departure: Impression: Primary Impression: Hypokalemia Additional Impression: MADDY (acute kidney injury) Disposition: ADMITTED INPATIENT Admitting Physician: Jorge L Warner (GRECIA RIOS APRN) Condition: STABLE Referrals: DENNIS JEREZ MD (PCP) Attending Signature Attending Signature I have participated in the care of this patient and I have reviewed and agree with all pertinent clinical information above including history, exam, and recommendations. (QASIM BROWER MD) GRECIA RIOS APRN May 26, 2021 14:24 QASIM BROWER MD May 27, 2021 01:09 KVNG BARRIOS DO May 27, 2021 06:44
[2021-05-26 14:36] LABS: ALBUMIN 3.9 g/dL (3.4-5.0); ALBUMIN/GLOBULIN RATIO 0.9 (1.0-1.7); CALCIUM 9.9 mg/dL (8.5-10.1); CREATININE 2.3 mg/dL (0.7-1.3); GFR 27.4; TOTAL PROTEIN 8.2 g/dL (6.4-8.2)
[2021-05-26 14:42] LABS: POTASSIUM 2.6 mmol/L (3.5-5.1)
[2021-05-26 14:52] LABS: % LYMPHS 7 % (24-48); % MONOS 8 % (0-10); % SEGS 85 % (35-66); INFLUENZA A PATIENT NEGATIVE (NEGATIVE); INFLUENZA B PATIENT NEGATIVE (NEGATIVE); PLT ESTIMATE ADEQUATE (ADEQUATE)
--- NOTE | 2021-05-26 15:29 | RAD ---
EXAM: Chest, single view. HISTORY: Cough. COMPARISON: 03/13/2021 FINDINGS: A frontal view of the chest is obtained. There is no infiltrate, pleural effusion or pneumo thorax. The heart is normal in size. IMPRESSION: No acute pulmonary finding. Electronically signed by: Flora Kenney MD (05/26/2021 3:26 PM) [facility]
[2021-05-26] MEDS ORDERED: POTASSIUM CHLORIDE 20 MEQ TABLET.ER. PO ONE (16:15)
[2021-05-26] MEDS: POTASSIUM CHLORIDE 10MEQ 100 ML IV SCH ×4 (16:39→20:11)
[2021-05-26 16:58] LABS: BACTERIA,URINE 0 /HPF (0-FEW); BILIRUBIN,URINE NEG (NEG); CLARITY,URINE CLEAR; COLOR,URINE YELLOW; GLUCOSE,URINE NEG (NEG); NITRITE,URINE NEG (NEG); RBC,URINE 0 /HPF (0-2); UROBILINOGEN,URINE 0.2 mg/dL (0.2 mg/dL); WBC,URINE 0 /HPF (0-4)
[2021-05-26] MEDS ORDERED: diphenhydrAMINE HCL 25 MG CAPSULE PO ONE (21:30)
[2021-05-27 09:32] LABS: BASO % 0 % (0-3); EOS # 0.1 x10^3/uL (0.0-0.7); EOS % 1 % (0-3); HEMATOCRIT 41.8 % (39.0-53.0); LYMPH # 1.2 x10^3/uL (1.0-4.8); LYMPH % 9 % (24-48); MEAN CORPUSCULAR HEMOGLOBIN 28 pg (25-35); MEAN CORPUSCULAR HGB CONC 34 g/dL (31-37); MEAN CORPUSCULAR VOLUME 83 fL (79-100); MONO # 1.2 x10^3/uL (0.0-1.1); MONO % 9 % (0-9); NEUT # 10.5 x10^3uL (1.8-7.7); NEUT % 80 % (31-73); PLATELET COUNT 264 x10^3/uL (140-400); RED BLOOD COUNT 5.06 x10^6/uL (4.30-5.70); RED CELL DISTRIBUTION WIDTH 17.2 % (11.5-14.5)
[2021-05-27 09:43] LABS: ALBUMIN 3.5 g/dL (3.4-5.0); CALCIUM 9.1 mg/dL (8.5-10.1); CREATININE 1.5 mg/dL (0.7-1.3); GFR 44.9; TOTAL PROTEIN 7.1 g/dL (6.4-8.2)
[2021-05-27] MEDS ORDERED: TRAM50TA PO (09:49)
[2021-05-27] MEDS ORDERED: NYST15PO9 TP (09:49)
[2021-05-27] MEDS ORDERED: MULT-650 PO (09:54)
[2021-05-27] MEDS ORDERED: TORS20TA2 PO (09:54)
[2021-05-27] MEDS ORDERED: METO5TAB4 PO (09:54)
[2021-05-27] MEDS ORDERED: GINK1TAB PO (09:54)
[2021-05-27 10:10] LABS: POTASSIUM 2.6 mmol/L (3.5-5.1)
[2021-05-27] MEDS ORDERED: POTASSIUM CHLORIDE 20 MEQ TABLET.ER. PO ONE ×4 (10:45→19:30)
[2021-05-27] MEDS ORDERED: NITROGLYCERIN SUBLINGUAL 0.4 MG BOTTLE OF 25. SL PRN (16:15)
[2021-05-27] MEDS ORDERED: ACETAMINOPHEN 500 MG TABLET PO PRN (16:15)
[2021-05-27] MEDS ORDERED: IV NORMAL SALINE 1,000ML 1,000 ML IV ONE (16:15)
[2021-05-27 16:33] LABS: CALCIUM 8.4 mg/dL (8.5-10.1); CREATININE 1.4 mg/dL (0.7-1.3); GFR 48.6
[2021-05-27 16:37] LABS: POTASSIUM 2.8 mmol/L (3.5-5.1)
--- NOTE | 2021-05-27 17:00 | HP ---
DATE OF SERVICE: 05/27/2021 ADMIT DATE: 05/26/2021 HISTORY OF PRESENT ILLNESS: The patient is an 80-year-old male patient who presented to the Emergency Room with complaint of fatigue, generalized weakness and dizziness that has been going on for the last 3 days. He also has chills, nausea, yellow productive cough and lightheadedness. He reported that lightheadedness is with position changes. He denies any shortness of breath, chest pain, headache, vomiting or diarrhea. 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 Bacon, his legal contracts specialist. He stated also that his medication was changed about a month ago by his legal contracts specialist. He was extensively investigated in the Emergency Room and has had lab work and imaging studies. His lab work showed that he has leukocytosis with a white cell count 17,400. His chemistry showed that he has hyponatremia and hypokalemia and acute kidney injury as his baseline creatinine was only 1 mg. As of 03/13/2021, his chest x-ray was unremarkable. He did receive 2 liters of fluid and potassium chloride multiple times. He also received some Ativan and diphenhydramine last night because he was anxious and irritated and apparently has been asleep. PAST MEDICAL HISTORY: Significant for coronary artery disease, status post stent deployment x2. He is also known to have COPD, atrial fibrillation, morbid obesity and obstructive sleep apnea, on BiPAP machine at nighttime. He is known to have hyperlipidemia, hypertension and has been admitted before for a complicated urinary tract infection. PAST SURGICAL HISTORY: Significant for bilateral cataract extraction and umbilical hernia repair. He also had tonsillectomy, uvulopalatoplasty for obstructive sleep apnea. ALLERGIES: He has no known drug allergies. FAMILY HISTORY: Noncontributory. SOCIAL HISTORY: He is , lives alone. 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 He continued to smoke and apparently has started smoking when he was only 13 years old. He does not drink alcohol or use recreational drugs. REVIEW OF SYSTEMS: As per history of present illness. MEDICATIONS: He is currently on following medications: He is on Combivent Respimat inhaler 1 puff twice a day, rivaroxaban 20 mg daily, atorvastatin calcium 40 mg at bedtime. He is on nitroglycerin 0.4 mg sublingually every 5 minutes x3, metoprolol tartrate 50 mg 1 tablet p.o. b.i.d., diltiazem 300 mg daily. He is on aspirin 81 mg once a day, tramadol 50 mg every 6 hours, acetaminophen 1000 mg every 8 hours and citalopram hydrobromide 20 mg once a day and potassium gluconate 99 mg daily. He is on furosemide 40 mg daily and torsemide 20 mg, he takes 2 tablets daily. He is also on metolazone 5 mg 1 tablet once a week and dexamethasone 4 mg daily for 3 days. Nystatin powder apply topically twice a day, multivitamin with mineral 1 tablet once a day, Ginkgo biloba 1 tablet once a day. PHYSICAL EXAMINATION: GENERAL: On arrival to the Emergency Room, the patient was somewhat pale, but not jaundiced, cyanosed. No lymphadenopathy, no thyromegaly. No jugular venous distention. No limb edema. VITAL SIGNS: His heart rate was 90, blood pressure was 116/71, temperature was 98.1, respiratory rate was 18 and oxygen saturation was 93% on room air. HEAD, EYES, EARS, NOSE, AND THROAT: Normocephalic, atraumatic. NECK: Supple. HEART: Showed normal first and second heart sounds. No gallop, rub or murmur. CHEST: Showed central trachea, equal bilateral expansion, air entry, vesicular breath sounds. I could not appreciate any crepitation or rhonchi. ABDOMEN: Markedly distended, soft, nontender. NEUROLOGIC: He was sleepy, but arousable. All cranial nerves intact. He moves extremities without difficulty. LABORATORY DATA: His lab work on arrival showed a white cell count 17,400, hemoglobin 14.9, hematocrit 44, MCV 83 and platelet count of 324,000 with automated differential showed 85% polymorphs, 6% lymphocytes and 9% monocytes. His serum sodium was 131, potassium 2.6, chloride 85, bicarbonate 33, anion gap of 13, BUN 55, creatinine was 2.3. Estimated GFR was 27 mL per minute. His glucose 182, calcium was 9.9. Total bilirubin, AST, ALT were normal. Alkaline phosphatase slightly elevated. Troponin I high sensitivity was only 14. Total protein was 8.2, albumin was 3.9. His urinalysis was essentially unremarkable and his coronavirus by PCR was negative. His influenza A and B were negative and his chest x-ray showed there is no infiltrate, pleural effusion or pneumothorax. The heart size is normal. ASSESSMENT AND PLAN: The patient was admitted with generalized weakness, acute kidney injury, hyponatremia, hypokalemia. He apparently received a liter of fluid and has received a total of 120 mEq of potassium chloride. His repeat lab work this morning showed his potassium is still low at only 2.6. So, we have ordered another 40 mEq twice every 8 hours x 2. We will check his BMP again in the afternoon. DEBRA DR: Naya TID: [id number]
[2021-05-27] MEDS: POTASSIUM CHLORIDE 20 MEQ TABLET.ER. PO SCH ×3 (17:44→19:29)
[2021-05-27] MEDS: RIVAROXABAN 10 MG TABLET. PO SCH (17:45)
[2021-05-27] MEDS: ATORVASTATIN CALCIUM 20 MG TABLET PO SCH (21:00)
[2021-05-27] MEDS: IPRATROPIUM/ALBUTEROL 20/100mcg/INH INHALER. INH SCH (21:00)
[2021-05-27] MEDS: NYSTATIN TOPICAL POWDER 15GM BOTTLE. TP SCH (21:00)
[2021-05-27 21:33] LABS: CALCIUM 8.5 mg/dL (8.5-10.1); CREATININE 1.3 mg/dL (0.7-1.3)
[2021-05-27 21:36] LABS: POTASSIUM 2.8 mmol/L (3.5-5.1)
--- NOTE | 2021-05-27 22:20 | PN ---
DATE: 05/27/2021 SUBJECTIVE: The patient is resting, slightly propped up in bed, in no apparent distress. He was sleepy, but arousable. On questioning him, he continued to be tired and fatigued and also feels dizzy and lightheaded. He did receive 1 liter of normal saline and he received also about a total of 120 mEq of potassium chloride. LABORATORY DATA: This morning showed that his sodium is improved to 139, potassium continued to be low at 2.6. However, his BUN and creatinine are down to 39 and 1.5. PHYSICAL EXAMINATION: GENERAL: When I saw him this afternoon, he was resting slightly propped up in bed, in no apparent respiratory distress. VITAL SIGNS: His heart rate was 98, blood pressure was 99/56, temperature was 98.1, respiratory rate was 20 and oxygen saturation was 97% on 2 liters of oxygen. HEAD, EYES, EARS, NOSE, AND THROAT: Normocephalic, atraumatic. NECK: Supple. HEART: Showed normal first and second heart sounds. No gallop, rub or murmur. CHEST: Clear to auscultation. No crepitation or rhonchi. ABDOMEN: Distended, soft, nontender. NEUROLOGIC: He was sleepy, but arousable. All cranial nerves intact. He moves extremities without difficulty. LABORATORY DATA: His lab work this morning showed a serum sodium 136, potassium 2.6, chloride 93, bicarbonate 34, anion gap of 9, BUN 39, creatinine 1.5. Estimated GFR was 44 mL per minute. His glucose 111, calcium was 9.1, magnesium was 3.1. Total bilirubin, AST, ALT, alkaline phosphatase were normal. Total protein 7.1, albumin was 3.5. ASSESSMENT: This is an 80-year-old male patient who was admitted with generalized weakness, fatigue, nausea, cough with lightheadedness. He was diagnosed with acute kidney injury, hyponatremia, hypokalemia. He has received 1 liter of normal saline and a total of 120 mEq of potassium chloride. His serum sodium, BUN and creatinine have improved. Potassium continues to be low. PLAN: We will continue to replenish his potassium. I reconcile all his medication. We held his antihypertensive medication and diuretics. We will monitor his labs again tomorrow. MARTINA/SEAN DR: Naya TID: [id number]
[2021-05-27 23:22] VITALS: BP 115/76
[2021-05-28 02:52] LABS: CALCIUM 8.8 mg/dL (8.5-10.1); CREATININE 1.1 mg/dL (0.7-1.3); GFR 64.2; POTASSIUM 3.8 mmol/L (3.5-5.1)
[2021-05-28] MEDS ORDERED: POTASSIUM CHLORIDE 20 MEQ TABLET.ER. PO ONE ×3 (04:00→08:00)
[2021-05-28 06:06] LABS: BASO % 1 % (0-3); EOS # 0.2 x10^3/uL (0.0-0.7); EOS % 3 % (0-3); HEMATOCRIT 40.6 % (39.0-53.0); HEMOGLOBIN 13.2 g/dL (13.0-17.5); LYMPH % 11 % (24-48); MEAN CORPUSCULAR HEMOGLOBIN 28 pg (25-35); MEAN CORPUSCULAR HGB CONC 33 g/dL (31-37); MEAN CORPUSCULAR VOLUME 85 fL (79-100); MONO % 10 % (0-9); NEUT # 7.5 x10^3uL (1.8-7.7); NEUT % 77 % (31-73); PLATELET COUNT 221 x10^3/uL (140-400); RED BLOOD COUNT 4.79 x10^6/uL (4.30-5.70); RED CELL DISTRIBUTION WIDTH 17.1 % (11.5-14.5); WHITE BLOOD COUNT 9.8 x10^3/uL (4.0-11.0)
[2021-05-28 06:16] VITALS: BP 126/78
[2021-05-28 06:20] LABS: ALBUMIN 3.1 g/dL (3.4-5.0); ALBUMIN/GLOBULIN RATIO 0.9 (1.0-1.7); CALCIUM 8.9 mg/dL (8.5-10.1); CREATININE 1.2 mg/dL (0.7-1.3); GFR 58.1; POTASSIUM 4.2 mmol/L (3.5-5.1); TOTAL BILIRUBIN 0.6 mg/dL (0.2-1.0); TOTAL PROTEIN 6.5 g/dL (6.4-8.2)
[2021-05-28] MEDS: MULTIVITAMIN I-VITE TABLET. PO SCH (08:06)
[2021-05-28] MEDS: RIVAROXABAN 10 MG TABLET. PO SCH (08:06)
[2021-05-28] MEDS: ASPIRIN CHEWABLE 81 MG TABLET. PO SCH (08:06)
[2021-05-28] MEDS: CITALOPRAM 20 MG TABLET. PO SCH (08:06)
[2021-05-28] MEDS: IPRATROPIUM/ALBUTEROL 20/100mcg/INH INHALER. INH SCH ×2 (08:07→20:53)
[2021-05-28] MEDS: NYSTATIN TOPICAL POWDER 15GM BOTTLE. TP SCH ×2 (08:08→21:00)
[2021-05-28] MEDS ORDERED: NON FORMULARY ITEM (Citalopram Hydrobromide (Citalopram Hbr) 40 MG) PO SCH (09:00)
[2021-05-28 11:14] VITALS: BP 137/73
[2021-05-28 15:04] VITALS: BP 133/77
[2021-05-28 20:39] VITALS: BP 134/80
[2021-05-28] MEDS: METOPROLOL TART IMMED RELEASE 50 MG TABLET PO SCH (20:54)
[2021-05-28] MEDS: ATORVASTATIN CALCIUM 20 MG TABLET PO SCH (20:54)
[2021-05-28 23:15] VITALS: BP 136/80
--- NOTE | 2021-05-29 01:21 | PN ---
DATE: 05/28/2021 SUBJECTIVE: The patient is resting, slightly propped up in bed, in no apparent respiratory distress. He is awake, alert, responding appropriately. On questioning him, he denied any complaint. PHYSICAL EXAMINATION: GENERAL: When I examined him, he was pale, not jaundiced, cyanosed. No lymphadenopathy, no thyromegaly, no jugular venous distention. No lower limb edema. VITAL SIGNS: His heart rate was 105, blood pressure is 133/77, temperature was 97.8, respiratory rate 20, and oxygen saturation was 99% on 2 liters of oxygen. HEAD, EYES, EARS, NOSE, AND THROAT: Normocephalic, atraumatic. NECK: Supple. HEART: Showed normal first and second heart sounds. No gallop, rub or murmur. CHEST: Clear to auscultation, no crepitation or rhonchi. ABDOMEN: Distended, soft, nontender. NEUROLOGIC: He was grossly intact. His intake over the last 24 hours was 2500, no output was recorded. LABORATORY DATA: This morning showed a white cell count 9800, hemoglobin 13, hematocrit 40, MCV 85 and platelet count 221,000. His chemistry showed a serum sodium 141, potassium 4.2, chloride 102, bicarbonate 33, anion gap of 5, BUN 29, creatinine was 1.2. Estimated GFR was 58 mL per minute. His glucose 110, calcium was 8.9. Total bilirubin, AST, ALT, alkaline phosphatase were normal. Total protein was 6.5, albumin 3.1. ASSESSMENT: 1. Generalized weakness, fatigue, nausea, cough and lightheadedness, resolved. 2. Acute kidney injury, improving. His creatinine came down from 2.3-1.2. 3. Severe hypokalemia, resolved. His serum potassium today is 4.2. 4. Hyponatremia, also has improved. His serum sodium has risen from 131 to 141. 5. The patient has a multitude of other medical problems including: A. Coronary artery disease, status post stent deployment. B. Chronic obstructive pulmonary disease. C. Atrial fibrillation. D. Morbid obesity and obstructive sleep apnea, on BiPAP machine. E. Hypertension. F. Hyperlipidemia. PLAN: My plan is to reconcile his medication. I will restart his metoprolol and diltiazem. AMM/EKT DR: MARTINA/tiffany TID: [id number]
[2021-05-29 05:54] VITALS: BP 103/68
[2021-05-29 07:17] LABS: HEMOGLOBIN 12.5 g/dL (13.0-17.5); RED BLOOD COUNT 4.46 x10^6/uL (4.30-5.70); RED CELL DISTRIBUTION WIDTH 17.7 % (11.5-14.5); WHITE BLOOD COUNT 9.9 x10^3/uL (4.0-11.0)
[2021-05-29 07:26] LABS: ALBUMIN 2.9 g/dL (3.4-5.0); CREATININE 1.2 mg/dL (0.7-1.3); GFR 58.1; POTASSIUM 4.4 mmol/L (3.5-5.1); TOTAL BILIRUBIN 0.4 mg/dL (0.2-1.0); TOTAL PROTEIN 5.7 g/dL (6.4-8.2)
[2021-05-29 07:37] LABS: CALCIUM 8.5 mg/dL (8.5-10.1)
[2021-05-29] MEDS: MULTIVITAMIN I-VITE TABLET. PO SCH (08:20)
[2021-05-29] MEDS: CITALOPRAM 20 MG TABLET. PO SCH (08:20)
[2021-05-29] MEDS: ASPIRIN CHEWABLE 81 MG TABLET. PO SCH (08:20)
[2021-05-29] MEDS: NYSTATIN TOPICAL POWDER 15GM BOTTLE. TP SCH (08:21)
[2021-05-29] MEDS: METOPROLOL TART IMMED RELEASE 50 MG TABLET PO SCH (08:21)
[2021-05-29] MEDS: IPRATROPIUM/ALBUTEROL 20/100mcg/INH INHALER. INH SCH (08:21)
[2021-05-29 11:19] VITALS: BP 119/72
[2021-05-29 15:28] VITALS: BP 96/64
--- NOTE | 2021-05-29 15:30 | DISCH ---
HOME HEALTH DISCHARGE/MEDS DISCHARGE INFORMATION: Discharge Date: May 29, 2021 Final Diagnosis: Problems Medical Problems: (1) MADDY (acute kidney injury) Status: Acute (2) Hypokalemia Status: Acute Condition on Discharge: Stable CODE STATUS: Code Status: Full HOME HEALTH: Face to Face: I certify this patient is under my care and that I, or a nurse practitioner or physician's circulation assistant working with me, had a face to face encounter that meets the physician face to face encounter requirements with this patient on 05/29/2021 Medical Condition(s): Other Longterm For: Medication Management Physical Therapy For: Evalulation/Treatment Occupational Therapy For: Evaluation/Treatment POST DISCHARGE ORDERS: Activity Instructions for Disc: Activity as tolerated DIET AFTER DISCHARGE: Cardiac CERTIFICATION STATEMENT: Certification Statement: Based on the above finding, I certify that this patient is confined to the home and needs intermittent assisted care, physical therapy and/or speech therapy, or continues to need occupational therapy.~ This patient is under my care, and I have initiated the establishment of the plan of care.~ This patient will be followed by myself or a community physician who will periodically review the plan of care. DISCHARGE MEDICATIONS: Home Meds Active Scripts Citalopram Hydrobromide (CELEXA) 20 Mg Tablet, 1 TAB PO DAILY for DEPRESSION for 30 Days, #30 TAB 3 Refills Prov:BAMBI AVERY MD 11/28/20 Metoprolol Tartrate (METOPROLOL TARTRATE) 50 Mg Tablet, 1 TAB PO BID for AF IB for 30 Days, #60 TAB 5 Refills Prov:BAMBI AVERY MD 11/28/20 Reported Medications Ginkgo/Choline Bitartrate (Brainstrong Memory Supp Caplet) 1 Each Tablet, 1 EACH PO DAILY for supplement, TAB 05/27/21 Multivits-Min/Iron/FA/Lutein (Centrum Silver Women Tablet) 1 Each Tablet, 1 EACH PO DAILY for multivitamin, TAB 05/27/21 Nystatin (NYSTATIN) 15 Gm Powder, 15 GM TP BID for to foot until redenss relieved, MISC 05/27/21 Tramadol Hcl (TRAMADOL HCL) 50 Mg Tablet, 50 MG PO PRN Q6HRS PRN for PAIN, TAB 05/27/21 Ipratropium/Albuterol Sulfate (COMBIVENT RESPIMAT INHAL) 4 Gm Aer.w.adap, 1 PUFF INH BID for copd, EACH LAST DOSE GIVEN: DATE:11/28/20 TIME:899 NEXT DOSE DUE: DATE:11/28/20 TIME:209911/25/20 Potassium Gluconate (POTASSIUM GLUCONATE) 99 Mg Tablet, 99 MG PO DAILY for Supplement was given potassium bicarbonate during this admission, last dose given 11/28/20899, take another dose 11/29/2089911/09/20 Aspirin (ASPIRIN) 81 Mg Tab.chew, 81 MG PO DAILY for Heart Health LAST DOSE GIVEN: DATE:11/28/20 TIME:899 NEXT DOSE DUE: DATE:11/29/20 TIME:89911/09/20 Acetaminophen (ACETAMINOPHEN) 500 Mg Tablet, 1000 MG PO PRN Q6HRS PRN for PAIN not given this admission, may take as needed per order 11/09/20 [Super Beta Prostate] No Conflict Check, 1 TAB PO BID for Supplement not given this admission 11/09/20 Nitroglycerin (NITROGLYCERIN SubLingual) 0.4 Mg Tab.subl, 0.4 MG SL PRN Q5MIN PRN for CHEST PAIN not given this admission, may take as needed per order for chest pain 11/09/20 Atorvastatin Calcium (ATORVASTATIN CALCIUM) 40 Mg Tablet, 40 MG PO QHS for High Cholesterol LAST DOSE GIVEN: DATE:11/27/20 TIME:2099 NEXT DOSE DUE: DATE:11/28/20 TIME:209911/12/19 Furosemide (FUROSEMIDE) 40 Mg Tablet, 40 MG PO DAILY for diuretic LAST DOSE GIVEN: DATE:11/28/20 TIME:899 NEXT DOSE DUE: DATE:11/29/20 TIME:89911/12/19 Rivaroxaban (XARELTO) 20 Mg Tablet, 20 MG PO DAILYBFRSUP for blood thinner LAST DOSE GIVEN: DATE:11/28/20 TIME:1699 NEXT DOSE DUE: DATE:11/29/20 TIME:169911/12/19 Discontinued Reported Medications Metolazone (METOLAZONE) 5 Mg Tablet, 5 MG PO WEEKLY for fluid overload, TAB 05/27/21 Torsemide (TORSEMIDE) 20 Mg Tablet, 2 TAB PO DAILY for fluid overload, #90 TAB 1 Refill 05/27/21 Citalopram Hydrobromide (CITALOPRAM HBR) 40 Mg Tablet, 40 MG PO DAILY for depression LAST DOSE GIVEN: DATE:11/28/20 TIME:0900 NEXT DOSE DUE: DATE:11/29/20 TIME:0911/28/20 Diltiazem Hcl (DILTIAZEM 24HR CD) 300 Mg Cap.er.24h, 300 MG PO DAILY for AFIB LAST DOSE GIVEN: DATE:11/28/20 TIME:0900 NEXT DOSE DUE: DATE:11/29/20 TIME:0911/12/19 Discontinued Scripts Doxycycline Hyclate (DOXYCYCLINE HYCLATE) 100 Mg Tablet, 1 TAB PO BID for Bronchitis/Cellulitis, #20 TAB Prov:ELIECER CORCORAN DO 01/30/21 Prednisone (PREDNISONE) 20 Mg Tablet, 2 TAB PO DAILY for Bronchitis, #8 TAB Start this prescription tomorrow, 01/31/21 Prov:ELIECER CORCORAN DO 01/30/21 Dexamethasone (DEXAMETHASONE) 4 Mg Tablet, 0.5 TAB PO DAILY for COVID for 3 Days, #2 TAB Prov:BAMBI AVERY MD 11/28/20 Dexamethasone (DEXAMETHASONE) 4 Mg Tablet, 4 TAB PO DAILY for COVID 19 for 3 Days, #12 TAB Prov:BAMBI AVERY MD 11/28/20 Azithromycin (ZITHROMAX) 250 Mg Tablet, 250 MG PO DAILY for ANTI-BIOTIC for 3 Days, #3 TAB 0 Refills Prov:BAMBI AVERY MD 11/28/20 Cefdinir (CEFDINIR) 300 Mg Capsule, 1 CAP PO BID for CAP for 7 Days, #14 CAP Prov:BAMBI AVERY MD 11/28/20 BAMBI AVERY MD May 29, 2021 15:30
== END 2021-05-29 16:20 | disposition home or self-care (01) | DRG 683 ==
LOC: ER 13:03 → ER HOLD 16:06 → 1 SOUTH 05-27 22:00
PROVIDERS: ADMIT Internal Medicine; ATTEND Internal Medicine
PROC: 5A09357 Assistance with Respiratory Ventilation, Less than 24 Consecutive Hours, Continuous Positive Airway Pressure (ICD-10-PCS; principal; 2021-05-28)
PROC: 5A09357 Assistance with Respiratory Ventilation, Less than 24 Consecutive Hours, Continuous Positive Airway Pressure (ICD-10-PCS; 2021-05-29)
DX: N17.9 Acute kidney failure, unspecified (principal); E87.1 Hypo-osmolality and hyponatremia; D72.829 Elevated white blood cell count, unspecified; E66.01 Morbid (severe) obesity due to excess calories; E78.00 Pure hypercholesterolemia, unspecified; E78.5 Hyperlipidemia, unspecified; E87.6 Hypokalemia; F17.210 Nicotine dependence, cigarettes, uncomplicated; G47.33 Obstructive sleep apnea (adult) (pediatric); I10 Essential (primary) hypertension; I25.10 Atherosclerotic heart disease of native coronary artery without angina pectoris; I48.91 Unspecified atrial fibrillation; J44.9 Chronic obstructive pulmonary disease, unspecified; N40.0 Benign prostatic hyperplasia without lower urinary tract symptoms; Z95.0 Presence of cardiac pacemaker; Z95.5 Presence of coronary angioplasty implant and graft; Z98.41 Cataract extraction status, right eye; Z98.42 Cataract extraction status, left eye; Z68.35 Body mass index [BMI] 35.0-35.9, adult; Z20.822 Contact with and (suspected) exposure to COVID-19
CPT/HCPCS: 36415; 71045; 80048; 80053; 81001; 83735; 84484; 85007; 85025; 85027; 87428; 93005; 96360; J2060; J3480; Q0163; U0003; 99285-25; J7030

== ENCOUNTER 2021-09-12 10:44 | Observation (INO) | payer MEDICARE, OTHER ==
[~2021-09-12] VITALS: Ht 180.3 cm; Wt 96.9 kg
[~2021-09-12 10:44] MED LIST changes: +DIGO50SO PO; +GINK1TAB PO; +MULT-650 PO; +NYST15PO9 TP; +TORS20TA2 PO; +TRAM50TA PO
--- NOTE | 2021-09-12 11:13 | PHYS DOC ---
Past History Past Medical History: A-Fib, Arthritis, Arrhythmia, CHF, Diabetes Additional Past Medical Histor: BPH, COVID Past Surgical History: Other Additional Past Surgical Histo: SLEEP APNEA SURGERY; CARDIAC STENTS Smoking: Less than 1pk/day Alcohol Use: None General Adult EDM: Chief Complaint: FOOT INJURY PAIN HPI: HPI: An 80-year-old male who presents to the emergency department via EMS for bilateral foot pain since last Friday. Patient rates his pain 10 out of 10. No treatment prior to arrival. But patient does take tramadol at home for his pain. Patient reports that he has noticed bilateral leg weakness. He reports that it takes a long time for him to ambulate which has been going on for several months. Patient denies any increased swelling in his legs or feet. He denies any shortness of breath, chest pain, injury, decreased sensation in his extremities. He denies a history of neuropathy. He has a history of A. fib, CHF, COPD, renal disease, hypertension, hyperlipidemia and he had a pacemaker placed 1 month ago at [facility]. After reviewing patient's chart, it appears that he does have a history of diabetes but does not appear to take any medications. He is a current smoker. Review of Systems: Review of Systems: Respiratory: see HPI Cardiovascular: see HPI Musculoskeletal: see HPI Integument: see HPI Neurologic: see HPI Endocrine: see HPI Current Medications: Current Meds: Current Medications Medications (Trade) Dose Ordered Sig/Jacque Start Time Stop Time Status Last Admin Dose Admin Tramadol HCl (Ultram) 50 mg 1X ONCE 09/12/21 11:15 09/12/21 11:16 Allergies: Allergies: Allergies Coded Allergies Type Severity Reaction Last Updated Verified No Known Drug Allergies 11/12/19 No Physical Exam: PE: Constitutional: Well developed, well nourished, no acute distress, non-toxic appearance. [] HENT: Normocephalic, atraumatic, bilateral external ears normal, oropharynx moist, no oral exudates, nose normal. [] Eyes: PERRL, EOMI, conjunctiva normal, no discharge. [] Neck: Normal range of motion, no tenderness, supple, no stridor. [] Cardiovascular:Heart rate regular rhythm, no murmur [] Lungs & Thorax: Bilateral breath sounds clear to auscultation [] Abdomen: Bowel sounds normal, soft, no tenderness, no masses, no pulsatile masses. [] Skin: Warm, dry, no erythema, no rash. [] Back: No tenderness Extremities: No tenderness, no cyanosis, no clubbing, ROM intact, no edema. [] bilateral lower extremities: no wounds/ecchymosis, rom intact, neuro intact. Neurologic: Alert and oriented X 3, normal motor function, normal sensory function, no focal deficits noted. [] Psychologic: Affect normal, judgement normal, mood normal. [] Current Patient Data: Labs: Laboratory Tests Test 09/12/21 11:10 White Blood Count 12.7 x10^3/uL Red Blood Count 4.03 x10^6/uL Hemoglobin 10.8 g/dL Hematocrit 33.4 % Mean Corpuscular Volume 83 fL Mean Corpuscular Hemoglobin 27 pg Mean Corpuscular Hemoglobin Concent 32 g/dL Red Cell Distribution Width 15.9 % Platelet Count 290 x10^3/uL Neutrophils (%) (Auto) 83 % Lymphocytes (%) (Auto) 6 % Monocytes (%) (Auto) 10 % Eosinophils (%) (Auto) 1 % Basophils (%) (Auto) 1 % Neutrophils # (Auto) 10.6 x10^3uL Lymphocytes # (Auto) 0.7 x10^3/uL Monocytes # (Auto) 1.3 x10^3/uL Eosinophils # (Auto) 0.1 x10^3/uL Basophils # (Auto) 0.1 x10^3/uL Sodium Level 134 mmol/L Potassium Level 3.8 mmol/L Chloride Level 98 mmol/L Carbon Dioxide Level 25 mmol/L Anion Gap 11 Blood Urea Nitrogen 11 mg/dL Creatinine 1.3 mg/dL Estimated GFR (Cockcroft-Gault) 53.0 BUN/Creatinine Ratio 8 Glucose Level 114 mg/dL Calcium Level 8.6 mg/dL Total Bilirubin 1.0 mg/dL Aspartate Amino Transf (AST/SGOT) 31 U/L Alanine Aminotransferase (ALT/SGPT) 13 U/L Alkaline Phosphatase 89 U/L Troponin I High Sensitivity 10 ng/L CF-Rmo-I-Type Natriuretic Peptide 3755 pg/mL Total Protein 6.0 g/dL Albumin 2.1 g/dL Albumin/Globulin Ratio 0.5 Current Medications Medications (Trade) Dose Ordered Sig/Jacque Route PRN Reason Start Time Stop Time Status Last Admin Dose Admin Tramadol HCl (Ultram) 50 mg 1X ONCE PO 09/12/21 11:15 09/12/21 11:16 DC 09/12/21 11:23 Vital Signs: Vital Signs Date Time Temp Pulse Resp B/P (MAP) Pulse Ox O2 Delivery O2 Flow Rate FiO2 09/12/21 10:48 99.0 80 16 101/47 (65) 98 EKG: EKG: EKG performed by ER staff at 1118 shows A. fib with PVCs, no STEMI read by Dr. Covarrubias [] Radiology/Procedures: Radiology/Procedures: [] Heart Score: C/O Chest Pain: No Risk Factors: Risk Factors: DM, Current or recent (<one month) smoker, HTN, HLP, family history of CAD, obesity. Risk Scores: Score 0 - 3: 2.5% MACE over next 6 weeks - Discharge Home Score 4 - 6: 20.3% MACE over next 6 weeks - Admit for Clinical Observation Score 7 - 10: 72.7% MACE over next 6 weeks - Early Invasive Strategies Course & Med Decision Making: Course & Med Decision Making Pertinent Labs and Imaging studies reviewed. (See chart for details) [] Patient presents to the emergency department for bilateral foot pain and generalized weakness. Patient denies a history of diabetes and neuropathy but after reviewing patient's chart it does appear that he was diagnosed with diabetes in May of this year but it does not appear that he is taking any medications. It is possible that patient is experiencing diabetic neuropathy pains in his feet as he describes the pain as a "crusting on his feet". Patient states that it feels like there is a cover over his feet but denies vzta-gut-pzzmilv sensation. Work-up in the ER consisted of blood work including troponin and BNP, EKG and chest x-ray. Patient was given his home dose of tramadol in the ER. Patient is noted to have mild leukocytosis with a white blood cell count of 12.7. Patient is mildly anemic with a hemoglobin of 10.8 which is a drop from 2 and half months ago when it was 12.6. Negative troponin. Patient's BNP is 3755 which is improved from his previous visit. Blood sugar is 114. Patient reports that he is unable to ambulate at home due to his severe foot pain and bilateral lower extremity weakness. Patient is concerned because he lives at home alone he just cannot get around like he should. I discussed patient's case with Dr. Bui who agreed to admit the patient for bilateral lower extremity weakness and pain. ER bridge orders placed at this time at 1219. Simone Disclaimer: Simone Disclaimer: This electronic medical record was generated, in whole or in part, using a voice recognition dictation system. Departure Departure: Impression: Primary Impression: Lower extremity weakness Qualified Codes: R29.898 - Other symptoms and signs involving the musculoskeletal system Additional Impressions: Lower extremity pain Qualified Codes: M79.604 - Pain in right leg; M79.605 - Pain in left leg CHF (congestive heart failure) Qualified Codes: I50.9 - Heart failure, unspecified Disposition: ADMITTED INPATIENT Admitting Physician: Adarhs Bui Condition: STABLE Referrals: DENNIS JEREZ MD (PCP) GRECIA RIOS HOTEL MANAGER September 12, 2021 11:13
[2021-09-12] MEDS ORDERED: traMADol 50 MG TABLET PO ONE (11:15)
[2021-09-12 11:33] LABS: BASO # 0.1 x10^3/uL (0.0-0.2); BASO % 1 % (0-3); EOS # 0.1 x10^3/uL (0.0-0.7); EOS % 1 % (0-3); HEMATOCRIT 33.4 % (39.0-53.0); HEMOGLOBIN 10.8 g/dL (13.0-17.5); LYMPH # 0.7 x10^3/uL (1.0-4.8); LYMPH % 6 % (24-48); MEAN CORPUSCULAR HEMOGLOBIN 27 pg (25-35); MEAN CORPUSCULAR HGB CONC 32 g/dL (31-37); MEAN CORPUSCULAR VOLUME 83 fL (79-100); MONO # 1.3 x10^3/uL (0.0-1.1); MONO % 10 % (0-9); NEUT # 10.6 x10^3uL (1.8-7.7); NEUT % 83 % (31-73); PLATELET COUNT 290 x10^3/uL (140-400); RED BLOOD COUNT 4.03 x10^6/uL (4.30-5.70); RED CELL DISTRIBUTION WIDTH 15.9 % (11.5-14.5); WHITE BLOOD COUNT 12.7 x10^3/uL (4.0-11.0)
[2021-09-12 11:47] LABS: CALCIUM 8.6 mg/dL (8.5-10.1); CREATININE 1.3 mg/dL (0.7-1.3); POTASSIUM 3.8 mmol/L (3.5-5.1)
[2021-09-12 12:00] LABS: ALBUMIN 2.1 g/dL (3.4-5.0); ALBUMIN/GLOBULIN RATIO 0.5 (1.0-1.7)
[2021-09-12] MEDS ORDERED: FUROSEMIDE 20 MG/2 ML VIAL IVP ONE (13:00)
[2021-09-12] MEDS ORDERED: FUROSEMIDE 40 MG/4 ML VIAL IVP ONE (13:15)
[2021-09-12] MEDS ORDERED: CITA40TA6 PO (14:26)
[2021-09-12 14:31] VITALS: BP 100/63
--- NOTE | 2021-09-12 15:59 | RAD ---
XR CHEST 1V History: Leg swelling Comparison: 06/17/2021 Technique: Portable AP radiograph of the chest. Findings: New left chest single lead cardiac pacemaker with lead tip terminating in the region of the right gina tricle. The lungs are adequately inflated. No focal consolidation, pleural effusion or pneumothorax. The cardiac silhouette is within normal limits for size there is a calcified tortuous aorta. Pulmonar y vasculature is mildly prominent. Degenerative changes of the spine and shoulders. Impression: 1. Prominent pulmonary vasculature may represent pulmonary vascular congestion. No focal airspace co nsolidation. Electronically signed by: Ney Conroy MD (09/12/2021 11:09 AM) [id number]
[2021-09-12 20:23] VITALS: BP 97/65
[2021-09-12] MEDS: METOPROLOL TART IMMED RELEASE 50 MG TABLET PO SCH (20:40)
[2021-09-12] MEDS ORDERED: ATORVASTATIN CALCIUM 20 MG TABLET PO SCH (21:00)
[2021-09-12 23:53] VITALS: BP 92/50
[2021-09-13 06:37] VITALS: BP 93/58
[2021-09-13] MEDS ORDERED: CITALOPRAM 20 MG TABLET. PO SCH (09:00)
[2021-09-13] MEDS ORDERED: NON FORMULARY ITEM (Potassium Gluconate 99 MG) PO SCH (09:00)
[2021-09-13] MEDS ORDERED: TORSEMIDE 10 MG TABLET PO SCH (09:00)
[2021-09-13 09:06] VITALS: BP 110/63
[2021-09-13] MEDS: METOPROLOL TART IMMED RELEASE 50 MG TABLET PO SCH (09:06)
--- NOTE | 2021-09-13 11:11 | HP ---
DATE OF SERVICE: 09/13/2021 ADMIT DATE: 09/12/2021 ATTENDING PHYSICIAN: Dr. Bui. CHIEF COMPLAINT: Bilateral leg pain. HISTORY OF PRESENT ILLNESS: The patient is a very pleasant 80-year-old gentleman well known to me from previous admission. He has a longstanding medical issues, cardiac stent, sleep apnea and diabetes. He also has peripheral neuropathy and diabetic neuropathy. His main complaint was severe leg pain, could not walk, he has a walker. Pain is rated 10/10. He was admitted for further treatment and evaluation. He has had a permanent pacemaker placed 1 month ago at [facility]. PAST MEDICAL HISTORY: Significant for prostatic hypertrophy, COVID infection, sleep apnea surgery, cardiac stents, atrial fibrillation, degenerative arthritis and peripheral neuropathy along with his diabetes. CURRENT MEDICATIONS: Include the following: He is on scheduled Tylenol, Lipitor, Celexa, metoprolol, nitroglycerin, potassium, Xarelto 20 mg daily, torsemide and tramadol. ALLERGIES: He has no known drug allergies. FAMILY HISTORY: Noncontributory. REVIEW OF SYSTEMS: He has actually lost quite a bit of weight since the last time I saw him a year ago. He is down about 30 pounds. 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 He has difficulty getting around. He has a handicap sticker. He is able to ambulate with the help of a walker. He has had COVID. No recent exposure. All other systems reviewed and turned to be negative. PHYSICAL EXAMINATION: GENERAL: When I saw him, this is a pleasant elderly gentleman who is fairly alert. INITIAL VITAL SIGNS: Showed a blood pressure 110/63, pulse is 80 and regular. He was afebrile, oxygen saturation 94% on room air. HEENT: Head is without trauma. Pupils are reactive. Sclerae nonicteric. Oropharynx clear. NECK: Supple. LUNGS: Clear. CARDIOVASCULAR: Showed regular heart tones. ABDOMEN: Soft. EXTREMITIES: Without edema. NEUROLOGIC FINDINGS: Focally intact. Speech is fluent. PERTINENT LABORATORY STUDIES: His hemoglobin on admission was 10.8 g/dL with a white count of 12,700. Electrolytes within normal range. Nonfasting blood sugar 114. Serology negative for coronavirus. ASSESSMENT: 1. An 80-year-old gentleman with severe peripheral neuropathy related to diabetes. 2. Chronic pain syndrome. 3. Degenerative arthritis. 4. Paroxysmal atrial fibrillation. 5. Type 2 diabetes. 6. History of coronary artery disease and stents. 7. History of sleep apnea. PLAN: 1. Admit to the inpatient unit. 2. Physical therapy recommendation. 3. I will ask him whether he wishes to go for rehabilitation or go home. LAZARUS DR: Alisa TID: [id number] CC: Christoph Giordano MD
[2021-09-13] MEDS ORDERED: RIVAROXABAN 10 MG TABLET. PO SCH (17:00)
--- NOTE | 2021-09-13 19:17 | DS ---
DATE OF DISCHARGE: 09/13/2021 ATTENDING PHYSICIAN: Dr. Bui. FINAL DISCHARGE DIAGNOSES: 1. Severe peripheral neuropathy of lower extremity, chronic. 2. Chronic pain in legs, aggravated by walking. 3. History of degenerative arthritis. 4. Type 2 diabetes mellitus. 5. Diabetic neuropathy. 6. Sleep apnea. 7. History of heart disease and coronary stents. HISTORY AND PHYSICAL: The patient is a very pleasant 80-year-old gentleman , who is well known to me from previous admission. He is admitted to the ED. 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 PHYSICAL EXAMINATION: Please see the dictated note. PERTINENT LABORATORY AND X-RAY STUDIES: Admission hemoglobin was 10.8 g/dL, white count 12,700. Electrolytes within normal range. Nonfasting blood sugar 114. Cardiac enzymes were negative for coronary ischemia. Chest x-ray was reported as clear. Some increased pulmonary vascular congestion and permanent pacemakers identified. COURSE IN THE HOSPITAL: The patient was admitted. He was evaluated by physical therapy. He was seen by our director case. He does not want to go to a rehab or assisted at this time. He wanted to go home. He has a followup visit with Dr. Giordano this week. Therefore, he is discharged in stable condition with no changes on his medication. He will continue his scheduled Tylenol, Lipitor, Celexa, metoprolol, potassium, Xarelto, torsemide and tramadol doses unchanged. He remains a FULL CODE. His prognosis is guarded. He was discharged from our hospital in stable condition with explicit drug and followup care. JIHAN DR: Alisa TID: [id number] CC: Christoph Giordano MD
== END 2021-09-13 12:00 | disposition home or self-care (01) ==
LOC: ER 10:44 → INTOOBSV 12:27 → ER HOLD 12:27 → 1 SOUTH 13:14
PROVIDERS: ADMIT Hospitalist; ATTEND Hospitalist
DX: M79.661 Pain in right lower leg (principal); Z20.822 Contact with and (suspected) exposure to COVID-19; M79.662 Pain in left lower leg; I11.0 Hypertensive heart disease with heart failure; I50.9 Heart failure, unspecified; E11.42 Type 2 diabetes mellitus with diabetic polyneuropathy; M19.90 Unspecified osteoarthritis, unspecified site; I48.0 Paroxysmal atrial fibrillation; I25.10 Atherosclerotic heart disease of native coronary artery without angina pectoris; J44.9 Chronic obstructive pulmonary disease, unspecified; G47.30 Sleep apnea, unspecified; G57.90 Unspecified mononeuropathy of unspecified lower limb; G89.4 Chronic pain syndrome; N40.0 Benign prostatic hyperplasia without lower urinary tract symptoms; M79.604 Pain in right leg; M79.605 Pain in left leg; E78.5 Hyperlipidemia, unspecified; F17.200 Nicotine dependence, unspecified, uncomplicated; Z95.5 Presence of coronary angioplasty implant and graft; Z95.0 Presence of cardiac pacemaker; Z79.899 Other long term (current) drug therapy; Z98.890 Other specified postprocedural states
CPT/HCPCS: 36415; 71045; 80053; 83880; 84484; 85025; 87426; 93005; 96374; 96375; 97110; 97166; 99285; G0378; J1940; J3010; U0003; G0379